=== PATIENT | male | born 1940 | race Caucasian/White ===

== ENCOUNTER 2017-09-09 09:54 | Outpatient (CLI) | payer MEDICARE, OTHER ==
--- NOTE | 2017-09-09 13:12 | CT ---
CT CHEST AND ABDOMEN WITHOUT CONTRAST: INDICATIONS: History of left-sided renal carcinoma. COMPARISON: Prior exam dated 08/06/2016 and 12/28/2016. FINDINGS: The focal area of scarring within the anterior segment of the right upper lobe is stable. This is be st seen on image 24 of series 3. There is a new, small, focal, flat appearing, ground glass, nodular density just adjacent to the right minor fissure, on image 32 of series 3, that is likely related to volume averaging with the superior aspect of a pulmonary vesicle best seen on the coronal images. T here are areas of subsegmental volume loss within the posterior right lower lobe, which is new. No n ew suspicious pulmonary nodule is evident. The lack of IV contrast limits evaluation of the heart an d great vessels. There are calcified lymph nodes within the right hilar region. There is scattered vascular calcification involving the coronary artery and thoracic aorta. There is stable post surgical change of a left nephrectomy. No suspicious soft tissue nodularity is seen within the left renal bed. The adrenal glands are normal appearing. Unopacified right kidney r eveals no hydronephrosis. Lobularity of the right renal cortex is similar appearing to the compariso n. No drainable fluid collection is grossly evident. No pathologically enlarged lymph nodes are evident . The gallbladder is surgically absent. The unopacified liver is unremarkable. There are calcified granuloma within the spleen. The spleen remains mildly enlarged, measuring 14.5 cm. There is diffuse osteopenia. There is scattered degenerative and osteoarthritic change. No definite acute osseous abnormality is evident. IMPRESSION: No CT evidence to suggest metastatic disease. POS: [facility]
== END 2017-09-09 09:55 | disposition home or self-care (01) ==
LOC: CT 09:54
PROVIDERS: ATTEND Internal Medicine Medical Oncology
DX: C64.2 Malignant neoplasm of left kidney, except renal pelvis (principal)
CPT/HCPCS: 71250; 74150

== ENCOUNTER 2017-11-26 04:50 | Emergency (ER) | payer MEDICARE, OTHER ==
[2017-11-26] MEDS ORDERED: Morphine 10 MG/ML VIAL ONE (05:21)
--- NOTE | 2017-11-26 08:44 | CT ---
PRELIMINARY REPORT/[facility]/EMERGENTY AFTER-HOURS PROCEDURE CT Lumbar Spine Without Intravenous Contrast CLINICAL HISTORY: 77 years old, male; Pain; Low back pain; Patient HX: Er 3; , M77 presents to ed for back pain. Pt rep orts he has been working outside on the tractor recently and reports lower back pain with radiation d own his left leg. Pt reports feet swelling. Pt reports HX of renal carcinoma TECHNIQUE: Axial computed tomography images of the lumbar spine without intravenous contrast. Coronal and sagitt al reformatted images were created and reviewed. COMPARISON: No relevant prior studies available. FINDINGS: Vertebrae: Degenerative changes in the spine. No acute fracture. Normal alignment. No suspicious bone lesion. Discs/spinal canal/neural foramina: Vacuum disc phenomenon, disc space narrowing, diffuse disc bulge at L5-S1. There are moderate to severe bilateral L5-S1 neuroforaminal stenoses. Soft tissues: Normal. Vasculature: There is a 1.2 cm diameter outpouching along the left lateral margin of the abdominal ao rta, which appears to represent the stump of resected left renal artery. Kidneys and ureters: Patient appears to be status post post left nephrectomy. IMPRESSION: No acute findings. Multilevel degenerative changes. Moderate to severe bilateral L5-S1 neuroforaminal stenoses, which co uld potentially impinge the bilateral L5 nerve roots. Nonacute/incidental findings above. Thank you for allowing us to participate in the care of your patient. Dictated and Authenticated by: Nestor Canales MD 11/26/2017 6:19 AM Central Time ([place] & [place]) FINAL REPORT LUMBAR SPINE CT: Date: 11/26/17 COMPARISON: None. HISTORY: Low back pain radiating down left leg. FINDINGS: I agree with the preliminary report given by [facility]. The evaluation for central canal and/or neural for aminal stenosis is limited on routine CT. The imaged retroperitoneal structures demonstrate postsurgi yovani changes in the left perirenal region with findings suggesting prior left-sided nephrectomy. No significant anterolisthesis or retrolisthesis is seen. There is no evidence for acute fracture or dislocation. No suspicious lytic or blastic bone lesions a re noted. At L5-S1, there is disc space narrowing and vacuum disc formation. There is also prominent facet hype rtrophy extending into bilateral neural foramina with severe bilateral neural foraminal stenosis at L 5-S1. IMPRESSION: No acute osseous abnormality. Prominent degenerative change at the lumbosacral junction as above. POS: [facility]
== END 2017-11-26 06:45 | disposition home or self-care (01) ==
LOC: ERS 04:50
DX: M54.42 Lumbago with sciatica, left side (principal); I48.91 Unspecified atrial fibrillation; E03.9 Hypothyroidism, unspecified; E11.9 Type 2 diabetes mellitus without complications; I10 Essential (primary) hypertension; Z79.4 Long term (current) use of insulin; Z79.899 Other long term (current) drug therapy
CPT/HCPCS: 72131; 96372; J2270

== ENCOUNTER 2017-12-10 09:53 | Outpatient (CLI) | payer MEDICARE, OTHER ==
--- NOTE | 2017-12-10 14:33 | NM ---
WHOLE BODY BONE SCAN: Date: 12/10/17 HISTORY: Malignant neoplasm of left kidney, except renal pelvis. Low back pain. RADIOPHARMACEUTICAL: 33 mCi technetium-99m MDP injected intravenously. COMPARISON: 01/04/13. FINDINGS: Increased uptake in the feet are consistent with degenerative changes. No other abnormal areas of tra cer localization are seen. Tracer excretion through the kidneys is within normal limits. IMPRESSION: No evidence of osseous metastatic disease. POS: [facility]
== END 2017-12-10 09:54 | disposition home or self-care (01) ==
LOC: NM 09:53
DX: C64.2 Malignant neoplasm of left kidney, except renal pelvis (principal)
CPT/HCPCS: 78306; A9503

== ENCOUNTER 2018-02-10 16:08 | Outpatient (CLI) | payer MEDICARE, OTHER ==
[2018-02-10 17:01] LABS: #Eosinphils 0.1 thou/uL (0.0-0.7); #Lymphocytes 0.8 thou/uL (1.20-3.40); #Monocytes 0.1 thou/uL (0.11-0.59); %Basophils 1.8 % (0.0-1.0); %Eosinophils 4.5 % (0.0-10.0); %Lymphocytes 38.8 % (21.0-51.0); %Monocytes 6.1 % (0.0-10.0); %Neutrophils 48.8 % (42.0-75.0); Hemoglobin 8.4 g/dL (14.0-18.0); Mean Corpuscular HGB CONC 35.4 g/dL (32.0-36.0); Mean Corpuscular Hemoglobin 37.2 pg (27.0-31.0); Mean Platelet Volume 7.9 fL (7.4-10.4); Platelet Count 106 thou/uL (130-400); RBC Distribution Width 15.5 % (11.5-14.5); Red Blood Cell (RBC) Count 2.25 mill/uL (4.70-6.10); White Blood Cell (WBC) Count 2.1 thou/uL (4.8-10.8)
[2018-02-10 17:20] LABS: Anion Gap 12 mmol/L (10-20); BUN (Urea Nitrogen) 42 mg/dL (8.4-25.7); Calc. Creatinine Clearance 0 mL/min (70-130); Calcium 8.7 mg/dL (7.8-10.44); Carbon Dioxide 22 mmol/L (23-31); Chloride 108 mmol/L (98-107); Estimated GFR-MDRD 19; Glucose 125 mg/dL (83-110); Potassium 4.6 mmol/L (3.5-5.1); Sodium 137 mmol/L (136-145)
== END 2018-02-10 16:09 | disposition home or self-care (01) ==
LOC: LABBT 16:08
PROVIDERS: ATTEND Surgery
DX: Z01.818 Encounter for other preprocedural examination (principal); K64.8 Other hemorrhoids
CPT/HCPCS: 80048; 85025; 93005; 93010

== ENCOUNTER 2018-02-24 08:41 | Day surgery (SDC) | payer MEDICARE, OTHER ==
[2018-02-10 16:22] VITALS: BMI 36.4
[2018-02-24] MEDS ORDERED: cefOXitin 2 GM VIAL ONE (09:00)
[2018-02-24] MEDS ORDERED: Sodium Chloride 0.9% 100 ML ONE (09:01)
[2018-02-24] MEDS ORDERED: Famotidine/PF 20 mg/2ml Vial ONE (09:49)
[2018-02-24] MEDS ORDERED: Ondansetron HCl/PF 4 MG/2 ML Vial ONE (09:49)
[2018-02-24] MEDS ORDERED: Bupivacaine/Epinephrine 0.25% 30 ML VIAL ONE (10:39)
[2018-02-24] MEDS ORDERED: Lidocaine 2% Jelly 5 ML TUBE ONE (10:39)
[2018-02-24] MEDS ORDERED: Lidocaine 2% 10 ML INJ ONE (10:40)
[2018-02-24] MEDS ORDERED: Midazolam HCl 2 mg/2 ml Vial ONE (10:42)
[2018-02-24] MEDS ORDERED: Fentanyl 250 MCG/5 ML VIAL ONE (10:42)
[2018-02-24] MEDS ORDERED: Fentanyl 100 MCG/2 ML VIAL ONE (10:42)
[2018-02-24] MEDS ORDERED: Morphine 4 MG/ML VIAL ONE (12:50)
[2018-02-24] MEDS ORDERED: hydrALAZINE 20 MG/ML VIAL ONE (13:04)
[2018-02-24] MEDS ORDERED: HYDROcodone/Acetaminophen 5/325 mg Tablet ONE (14:15)
--- NOTE | 2018-02-25 22:43 | OP ---
DATE OF PROCEDURE: 02/24/2018 PREOPERATIVE DIAGNOSIS: Prolapsing bleeding internal hemorrhoids. POSTOPERATIVE DIAGNOSES: Prolapsing bleeding internal hemorrhoids. PROCEDURE: PPH stapled hemorrhoidectomy. SURGEON: Dr. Damico. ANESTHESIA: General. ESTIMATED BLOOD LOSS: Minimal. COMPLICATIONS: None. SPECIMEN: Hemorrhoids. TECHNIQUE: The patient was taken to the operating room and placed supine on the table. After genera l anesthetic was obtained, he was placed in the prone position. His buttocks are taped open and the perianal perineum is prepped and draped in a sterile fashion. The patient had undergone preoperative mechanical bowel prep. Exam reveals no obvious anal canal mass. The sphincter protecting device wi th the obturator is placed. The sphincter protector was sewn in place using silk sutures is us ed to place a pursestring of Prolene 2 cm above the anal verge. The PPH stapler was opened to its fu llest extent and placed above the pursestring. The pursestring is tied down loosely and its suture e nds were brought through the stapler. The stapler is tightened down into the green zone and fired. There is a good large southern ute of internal hemorrhoids specimen which was sent to path for final diagno sis. The wound was irrigated. A few bleeders on the staple wire oversewn using Vicryl suture. Ther e was no residual external tissue or redundant prolapsing tissue. The patient is en route to recover y in stable condition. All instrument counts, needle counts, lap counts were correct. Gelfoam and l idocaine jelly was left packed in the anal canal.
== END 2018-02-24 15:22 | disposition home or self-care (01) ==
LOC: SDC 08:41
PROVIDERS: ATTEND Surgery
PROC: 06LY0ZC Occlusion of Hemorrhoidal Plexus, Open Approach (ICD-10-PCS; principal; 2018-02-24)
DX: K64.8 Other hemorrhoids (principal); K64.4 Residual hemorrhoidal skin tags; E11.9 Type 2 diabetes mellitus without complications; I10 Essential (primary) hypertension; Z91.041 Radiographic dye allergy status; Z79.899 Other long term (current) drug therapy; Z79.4 Long term (current) use of insulin
CPT/HCPCS: 88304; 96374; J0131; J0360; J0694; J2250; J2270; J2405; J3010; J7050; S0028

== ENCOUNTER 2018-03-16 09:00 | Outpatient (CLI) | payer MEDICARE, OTHER ==
--- NOTE | 2018-03-16 10:46 | CT ---
CT CHEST AND ABDOMEN PERFORMED WITHOUT CONTRAST ENHANCEMENT: HISTORY: Left renal cell carcinoma with lung metastases. COMPARISON: 09/09/2017 FINDINGS: CHEST: The lungs are clear of any infiltrative process. There are calcified right hilar lymph nodes present. There are coronary artery calcifications seen. These findings appear stable. There is a new right lower lobe pulmonary nodule, which is noncalcified. It measures 5 mm. It is cl ose to but not definitely related to the major fissure. It is located in the superior segment of the right lower lobe. The small focus of parenchymal change in the anterior segment of the right upper lobe appears to have resolved. A small density near the minor fissure is felt to be related to a small vessel. A tiny pericardial effusion is seen. This is stable. ABDOMEN: The liver, spleen, and pancreas regions are unremarkable. The pancreas is atrophic. The g allbladder has been removed. The right and left adrenal glands and the right kidney are unremarkable. The right kidney, once agai n, shows a somewhat lobulated contour. There is a punctate lower pole nonobstructing renal calculus seen. This is more difficult to appreciate on the prior examination, but I believe it was present. The perinephric fat stranding on the right is similar to the prior study. The left kidney has been r emoved. No significant periaortic or mesenteric adenopathy. No signs of any recurrent mass in the l eft renal bed. Review of the osseous structures show arthritic changes of the spine. IMPRESSION: 1. Development of a new small, 5 mm, noncalcified pulmonary nodule within the right lower lobe, slig htly oblong in shape. Followup is recommended. 2. Left nephrectomy change. No signs of recurrent tumor in the renal bed. No significant abdominal adenopathy. 3. Minimal sigmoid diverticulosis incidentally noted. 4. Punctate, nonobstructing lower pole right renal calculus. POS: [facility]
== END 2018-03-16 09:01 | disposition home or self-care (01) ==
LOC: CT 09:00
PROVIDERS: ATTEND Internal Medicine Medical Oncology
DX: C64.2 Malignant neoplasm of left kidney, except renal pelvis (principal); C78.00 Secondary malignant neoplasm of unspecified lung; R91.1 Solitary pulmonary nodule; K57.30 Diverticulosis of large intestine without perforation or abscess without bleeding; N20.0 Calculus of kidney; Z90.5 Acquired absence of kidney
CPT/HCPCS: 71250; 74150

== ENCOUNTER 2018-05-11 08:36 | Outpatient (CLI) | payer MEDICARE, OTHER ==
--- NOTE | 2018-05-11 10:58 | CT ---
CT OF THE THORAX WITHOUT IV CONTRAST: Date: 05/11/18 INDICATION: History of renal cancer, status post left nephrectomy, with pulmonary nodules. COMPARISON: Recent CT of the thorax dated 03/16/18 and 04/03/16. FINDINGS: The 5.0 mm superior segment right lower lobe pulmonary nodule has decreased in size and is now sub-4. 0 mm in size, measuring approximately 2-3 mm on today's exam, on image 29 of series 3. There is a tiny new sub-4.0 mm pulmonary nodule within the right upper lobe on image 30 of series 3. There is a stable 2.0 mm pulmonary nodule left upper lobe on image 12 of series 3. There are stable sub-4.0 mm pulmonary nodules within the left lower lobe on image 37 of series 3 and image 38 of series 3. There are areas of subsegmental volume loss in both lower lobes. There is a small pericardial effusio n, which is stable. There are stable calcified lymph nodes within the right hilar region. There are c oronary artery thoracic aortic calcifications. There are calcified granulomas within the spleen. Visualized aspects of the upper abdomen demonstrate postsurgical change of a left nephrectomy. There is also postsurgical change of a prior cholecystect renetta. There is scattered degenerative and osteoarthritic change. No acute osseous abnormality is evident. IMPRESSION: 1. The suspicious pulmonary nodule within the right lower lobe superior segment has decreased in siz e and now measures approximately 2.0 mm and is likely reflective of a small inflammatory nodule and i s benign. There is a new sub-4.0 mm pulmonary nodule within the anterior segment of the right upper l obe, which has developed in the interim. Left lung pulmonary nodules all are sub-4.0 mm in size and a re stable to the prior exam. Only one sub-4.0 mm pulmonary nodule in the left lower lobe is new from 2016 and that is seen on image 37 of series 3. This was seen on a CT of the thorax on 09/09/17. A fol low-up examination in September 2018 is recommended to document stability. 2. Other chronic findings as above. POS: [facility]
== END 2018-05-11 08:37 | disposition home or self-care (01) ==
LOC: CT 08:36
PROVIDERS: ATTEND Internal Medicine Medical Oncology
DX: R91.1 Solitary pulmonary nodule (principal); C64.2 Malignant neoplasm of left kidney, except renal pelvis; R91.8 Other nonspecific abnormal finding of lung field; I31.3 Pericardial effusion (noninflammatory); I25.10 Atherosclerotic heart disease of native coronary artery without angina pectoris; I70.0 Atherosclerosis of aorta; D73.89 Other diseases of spleen; M19.90 Unspecified osteoarthritis, unspecified site; Z90.49 Acquired absence of other specified parts of digestive tract; Z90.5 Acquired absence of kidney
CPT/HCPCS: 71250

== ENCOUNTER 2018-07-25 09:48 | Outpatient (CLI) | payer MEDICARE, OTHER ==
--- NOTE | 2018-07-25 11:46 | CT ---
CT CHEST AND ABDOMEN WITHOUT CONTRAST: Technique: Multiple contiguous axial images were obtained through the chest and abdomen without IV en hancement. Indications: History of renal cancer. Follow up tiny lung nodules. Comparison: CT chest and abdomen 03-16-18. CT chest 05-11-18. FINDINGS: The nodule in the superior segment right lower lobe described on 03-26-18 measuring 5 mm at that time which was shown to have decreased on exam of 10-24-17, is not identified today. A faint ill-defined de nsity at this site is noted. Tiny pleural based nodules anterior right mid lung described on 05-11-18 again seen. There is some sli ght parenchymal stranding associated with this density which appears stable. There is numerous tiny nodules in the left lung which all measure in the 2-3 mm range. The largest is within the fissure on the left measuring approximately 3 mm. These tiny left lung nodules all remain stable. The is no evidence of mediastinal adenopathy. There are calcified right hilar lymph nodes which indic ate a prior granulomatous process. There is evidence of a small pericardial effusion which appears st able. Images of the abdomen show unremarkable liver, spleen, and pancreas. Adrenal glands are unremarkable. Left nephrectomy changes again noted. Right kidney unremarkable. No adenopathy. Visualized bowel loo ps unremarkable and unchanged. Visualized osseous structures are unremarkable. ==== normal caliber. IMPRESSION: 1. The nodule described in the right lower lobe 03-16-18 continues to resolve and is only faintly visib le today. Other tiny nodules seen in both lungs, more numerous on the left all remain stable and prob ably represent tiny granuloma. 2. CT abdomen appears normal in appearance with no acute process. POS: [facility]
== END 2018-07-25 09:49 | disposition home or self-care (01) ==
LOC: BICCT 09:48
PROVIDERS: ATTEND Internal Medicine Medical Oncology
DX: C64.2 Malignant neoplasm of left kidney, except renal pelvis (principal); R91.8 Other nonspecific abnormal finding of lung field
CPT/HCPCS: 71250; 74150

== ENCOUNTER 2018-08-17 13:05 | Outpatient (CLI) | payer MEDICARE, OTHER | END 2018-08-17 13:06 | disposition home or self-care (01) | LOC: DTY/OP 13:05 | PROVIDERS: ATTEND Family Medicine | DX: C64.9 Malignant neoplasm of unspecified kidney, except renal pelvis (principal); N18.5 Chronic kidney disease, stage 5 | CPT/HCPCS: 97802 ==

== ENCOUNTER 2018-10-12 04:07 | Inpatient (IN) | payer MEDICARE, OTHER ==
[2018-10-12 04:41] LABS: PTT 28.5 SEC (22.9-36.1); Prothrombin Time 13.1 SEC (12.0-14.7)
[2018-10-12 04:49] LABS: ALT (SGPT) 35 U/L (8-55); AST (SGOT) 29 U/L (5-34); Albumin 3.1 g/dL (3.4-4.8); Alkaline Phosphatase 92 U/L (40-150); Anion Gap 15 mmol/L (10-20); BUN (Urea Nitrogen) 67 mg/dL (8.4-25.7); Bilirubin, Total 0.6 mg/dL (0.2-1.2); CK (CPK) 139 U/L (30-200); Calc. Creatinine Clearance 0 mL/min (70-130); Calcium 8.8 mg/dL (7.8-10.44); Carbon Dioxide 16 mmol/L (23-31); Chloride 106 mmol/L (98-107); Estimated GFR-MDRD 11; Globulin 2.4 g/dL (2.4-3.5); Glucose 114 mg/dL (83-110); Magnesium 2.1 mg/dL (1.6-2.6); Potassium 4.8 mmol/L (3.5-5.1); Protein, Total 5.5 g/dL (5.8-8.1); Sodium 132 mmol/L (136-145)
[2018-10-12 04:52] LABS: #Eosinphils 0.1 thou/uL (0.0-0.7); #Lymphocytes 0.8 thou/uL (1.20-3.40); #Monocytes 0.1 thou/uL (0.11-0.59); #Neutrophils 1.6 thou/uL (1.40-6.50); %Eosinophils 5.2 % (0.0-10.0); %Lymphocytes 30.7 % (21.0-51.0); %Monocytes 4.1 % (0.0-10.0); %Neutrophils 58.9 % (42.0-75.0); Hemoglobin 12.1 g/dL (14.0-18.0); Mean Corpuscular HGB CONC 33.2 g/dL (32.0-36.0); Mean Corpuscular Hemoglobin 35.2 pg (27.0-31.0); Mean Platelet Volume 10.7 fL (7.4-10.4); Platelet Count 80 thou/uL (130-400); RBC Distribution Width 15.1 % (11.5-14.5); Red Blood Cell (RBC) Count 3.45 mill/uL (4.70-6.10); White Blood Cell (WBC) Count 2.7 thou/uL (4.8-10.8)
[2018-10-12] MEDS ORDERED: Aspirin 325 MG TAB ONE (06:31)
[2018-10-12] MEDS ORDERED: Lorazepam 2 MG/ML VIAL ONE (06:50)
[2018-10-12] MEDS ORDERED: levETIRAcetam 500 MG/100 ML PREMIX BAG ONE (07:02)
--- NOTE | 2018-10-12 07:12 | CT ---
CT BRAIN WITHOUT CONTRAST: INDICATIONS: New onset seizure with a right-sided deficit that is resolving. COMPARISON: None. FINDINGS: No acute infarct, hemorrhage, or hydrocephalus is present. The septum pellucidum and third ventricle are midline. There is mild chronic small vessel white matter ischemic change. There is a 6 mm focu s seen within the subcortical white matter of the right frontal lobe on image 17 of series 4, which m ay reflect a remote subcortical infarct; however, a small intraparenchymal lesion is not entirely exc luded. The septum pellucidum and third ventricle are midline. There is chronic sinusitis involving the right maxillary sinus. Mild mucosal thickening is seen within the ethmoid air cells, as well as the left maxillary sinus. There is partial effusion of the right mastoid air cells. IMPRESSION: 1. Small focus of intraparenchymal hypodensity involving the right frontal lobe may reflect a remote subcortical white matter lacunar infarct, but with the current diagnosis of new onset seizure, a sma ll intraparenchymal lesion cannot be entirely excluded. Metastatic disease cannot be excluded. A fo llow-up MRI of the brain with and without contrast is recommended. 2. Near complete opacification of the right maxillary sinus with chronic sinusitis of the right maxi llary sinus. 3. Moderate mucosal thickening of the ethmoid air cells, left maxillary sinus. 4. Partial effusion of the right mastoid air cells. POS: [facility]
[2018-10-12 07:59] LABS: Troponin I 0.508 ng/mL (< 0.028)
[2018-10-12] MEDS ORDERED: Lorazepam 2 MG/ML VIAL SLOW IVP PRN (09:16)
[2018-10-12] MEDS ORDERED: Ondansetron PF 4 MG/2 ML Vial IVP PRN (09:16)
[2018-10-12] MEDS ORDERED: HumaLOG 300 UNITS/3 ML VIAL SC PRN (09:16)
[2018-10-12] MEDS ORDERED: Dextrose 5% in Water 1,000 ML IV PRN (09:16)
[2018-10-12] MEDS ORDERED: Dextrose 50% Abboject 50 ML SYRINGE SLOW IVP PRN (09:16)
[2018-10-12] MEDS ORDERED: Acetaminophen 650 MG Suppository PR PRN (09:16)
--- NOTE | 2018-10-12 10:09 | HP ---
PRIMARY CARE PHYSICIAN: Dr. Imer English. PRIMARY ONCOLOGIST: Dr. Gonzalez. PRIMARY DRIVER SERVICE TECHNICIAN: Dr. Cohen. REASON FOR ADMISSION: Right frontal lobe mass with seizures x2, acute encephalopathy. HISTORY OF PRESENTING ILLNESS: Please note, majority of this history is obtained by talking to the patient's , Mrs. Husain, who is here at bedside. Around 2: 00 in the morning, the patient was making lot of gurgling noises, which woke her up. He was also very stiff holding his both upper and lower extremities in an extended posture. She immediately called EMS as he was not responding to verbal stimuli. EMS when they were approaching [facility] realized he might have had stroke, then Life flighted him from there to [facility] here. Around 7:00 in the morning, again, the patient had another episode of stiffening up of all 4 extremities and was given Keppra and Ativan in the ER here. He has known history of renal cell carcinoma and has had prior nephrectomy. The also mentions that his creatinine has been going up steadily and he is on a renal diet, which is holding it back. He has also had lower extremity swelling, which is gradually coming down per . He has had close followup with Dr. Gonzalez for his cancer and he is on Sunitib on a 28-day cycle with 2 weeks off in between cycles. The mentions that he ambulates by himself. PAST MEDICAL AND SURGICAL HISTORY: History of renal cell carcinoma with prior nephrectomy, chronic kidney disease stage 4 or 5, diabetes mellitus type 2, prior atrial fibrillation ablation x2 by Dr. Walters, hemorrhoid surgery x2, tonsillectomy, cholecystectomy, hypertension, hypothyroidism, chronic anemia and receives Procrit shots weekly. Stress test done in 2005 was negative per . CURRENT MEDICATIONS: The patient is on, 1. Victoza. 2. Lantus 12 to 18 units at bedtime. 3. Clonidine 0.2 mg twice daily. 4. Coreg 25 mg twice daily. 5. Procrit weekly shots. 6. Levothyroxine 75 mcg p.o. daily. 7. Sunitib chemotherapy ALLERGIES: ALLERGIC TO IODINE. PERSONAL HISTORY: Quit smoking in the year 1999. Does not abuse alcohol or drugs. He ambulates by himself. Lives with his . FAMILY HISTORY: Mother at the age of 95 years. She has had history of mild Parkinson's prior to . Father at the age of 82 years. He has had history of diabetes. CODE STATUS: Full. POWER OF CARDIAC CATH LAB RADIOLOGY TECHNOLOGIST: , number to reach her is [phone]. REVIEW OF SYSTEMS: Cannot be obtained as the patient is obtunded at present. PHYSICAL EXAMINATION: GENERAL: The patient is a 78-year-old male, who is currently very lethargic, likely due to Ativan that he got for seizure. VITAL SIGNS: Blood pressure 190/90, pulse 62 per minute, respiratory rate 18 per minute, temperature 98.2 degrees Fahrenheit, saturating 99% on 2 L nasal cannula. NECK: Supple. No elevated JVD. HEENT: Eyes; extraocular muscles are grossly intact. It is unclear if he has right lateral gaze restriction. Pupils reacting to light. CARDIOVASCULAR SYSTEM: S1 and S2 heard. Regular rhythm. RESPIRATORY SYSTEM: Air entry 1+ bilateral. Scattered rhonchi plus bilateral. The patient is currently having some difficulty clearing his throat secretions. ABDOMEN: Soft. Bowel sounds heard. No tenderness, rigidity, or guarding. EXTREMITIES: There is peripheral edema +. No calf tenderness. VASCULAR SYSTEM: Peripheral pulses 1+ bilateral. No ischemic ulcerations or gangrene. CENTRAL NERVOUS SYSTEM: The patient is very lethargic at present. He is moving all 4 extremities freely. NEUROLOGIC: Accurate neurologic exam is difficult due to the patient's decreased level of consciousness at present. No gross localizing sign seen at present. PSYCHIATRIC: Cannot be assessed as the patient is cognitively not intact at present. LABORATORY DATA: CT brain without contrast done showed mild focus of intraparenchymal hypodensity involving right frontal lobe, right maxillary sinus opacification. White count of 2.7, H and H 12 and 36, platelet count 80, MCV is 106 with 58% neutrophils. PT/INR within normal limits. PTT 28; serum bicarb 16, BUN 67, creatinine 5.3, glucose 114. Liver enzymes within normal limits. CK-MB 6.0 , troponin I 0.49, second set 0.50. Albumin is 3.1. TSH 1.42. EKG done shows sinus bradycardia at 59 beats per minute. CLINICAL IMPRESSION AND PLAN: The patient will be admitted to [facility] for seizures x2 with likely right frontal lobe mass to rule out mets in view of his history of renal cell carcinoma. He also has chronic kidney disease with metabolic acidosis. He was given Keppra and Ativan in the ER and will continue him on Keppra 500 mg IV q.12 hourly and reduce it to 250 q12h in am. MRI without contrast will be obtained in view of his elevated creatinine. We will keep him n.p.o. until the right frontal lobe area is better delineated. I have spoken to Dr. Vasquez, Neurosurgery, Dr. Landaverde for Pulmonology and Critical Care, Dr. Cohen for Nephrology consultations. He will be on normal saline at 70 mL per hour. Neuro checks and seizure precautions will be obtained as well. He will be on Accu-Chek Humalog coverage q.6 hourly. Job ID: [id number] [facility]
--- NOTE | 2018-10-12 10:54 | CON ---
DATE OF CONSULTATION: CONSULTING PHYSICIAN: Dr. Alvarez. TIME SPENT: Following encompassed 70 minutes time, of that time, greater than 50% was spent with the patient and/or the patient's unit in the hospital. REASON FOR CONSULTATION: Intermediate care unit consultation. HISTORY OF PRESENT ILLNESS: The patient is a 78-year-old male, who lives near [place]. Last night, he began having left-sided seizure-type activity, which was new onset. He was subsequently brought to the hospital here. He initially was not given anticonvulsants, but then had another seizure about 7:00 a.m. this morning. At that time, he received Ativan and Keppra, and is now somnolent. He will wake up when stimuli indicates that he is fine and currently has a nonfocal neurologic exam. 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 She says he has never had any seizure type episodes in the past. He was diagnosed with renal cell carcinoma many years ago. He had a left nephrectomy. He has been managed with some type of oral chemotherapy medications since that time. PAST MEDICAL HISTORY: 1. Renal cell carcinoma. 2. Diabetes mellitus. 3. Hyperlipidemia. 4. Hypertension. 5. Paroxysmal atrial fibrillation. 6. Hypothyroidism. PAST SURGICAL HISTORY: 1. Left nephrectomy. 2. Cholecystectomy. 3. Tonsillectomy. 4. Cardiac ablation. PSYCHIATRIC HISTORY: Negative. SOCIAL HISTORY: Does not drink alcohol. Does not smoke. Does not use illicit drugs. MEDICATIONS: Prior to admission; 1. Levothyroxine 75 mcg daily. 2. Lantus insulin, unknown dose daily. 3. Lisinopril 10 mg daily. 4. He is also on clonidine, unknown dose daily. FAMILY MEDICAL HISTORY: Unremarkable for seizure disorder. REVIEW OF SYSTEMS: He has had no shortness of breath. No chest pain. No fever, chills, nausea, vomiting, hematemesis, melena, hematochezia, hematuria, or dysuria. He has had some problem with renal insufficiency. PHYSICAL EXAMINATION: VITAL SIGNS: Temperature 98.2, pulse 80, blood pressure 179/82, O2 saturation 100%. GENERAL: He will wake up, no distress. HEENT: Both pupils equally reactive. Sclerae anicteric. Oropharynx, he has some tongue swelling from where he bit his tongue earlier. CARDIOVASCULAR: S1 and S2 regular without audible murmur, rub, or gallop. LUNGS: Clear to auscultation without wheezing or rhonchi. ABDOMEN: Soft, obese, nontender, and nondistended. EXTREMITIES: No clubbing, cyanosis, or edema. NEUROLOGIC: He moves all 4 extremities without difficulty. He has no sensory deficits. LABORATORY DATA: White blood cell count 2.7, hemoglobin 12, hematocrit 36.6, and platelet count 80. INR 1.0. PTT 28.5. Sodium 132, potassium 4.8, chloride 106, CO2 of 16, BUN 67, creatinine 5.3, and glucose 114. Troponin 0.5. TSH 1.4. DIAGNOSTIC DATA: Brain CT demonstrated a small focus of hypodensity in the right frontal lobe looks about 5 mm. Followup MRI is pending. ASSESSMENT: 1. 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 2. Renal cell carcinoma. 3. Chronic kidney disease. 4. Diabetes mellitus. PLAN: 1. An MRI of the brain is pending. He will be placed in IMCU for further observation. He needs an EEG if that has not been ordered. 2. He needs Neurology consultation. Job ID: [id number]
[2018-10-12] MEDS ORDERED: hydrALAZINE 20 MG/ML VIAL SLOW IVP PRN (14:44)
[2018-10-12] MEDS ORDERED: Labetalol HCl 100 MG/20 ML VIAL SLOW IVP PRN (14:44)
[2018-10-12] MEDS ORDERED: cloNIDine 0.2mg/24 Hour PATCH TD SCH (15:00)
--- NOTE | 2018-10-12 15:33 | MRI ---
MRI BRAIN WITHOUT CONTRAST: Date: 10/12/18 HISTORY: Right frontal mass with seizures. History of renal cancer. FINDINGS: Exam is of limited diagnostic value due to extensive motion artifact and absence of IV contrast. No restricted diffusion is seen. The ventricular size is appropriate. There is mucosal disease in the paranasal sinuses and fluid in the right mastoid air cells. IMPRESSION: Limited exam. No evidence of acute infarction. POS: [facility]
--- NOTE | 2018-10-12 16:11 | PDOC.EVN ---
Event Note - Event Note Event Note: d/w Dr.Jerri Carvajal radiologist reg MRI and CT findings, has lacunar stroke, no obvious mass/suspicion of mets. Stoke protocol to be initiated Oral diet, asp, may tx to stroke unit if he gets to wake up fully and maintain airway. d/w , will cancel NSX consult. Seizures likely sec to cva/metabolic causes (?uremia). No narcotics to be given. Have given updates to over phone.
[2018-10-12] MEDS: Acetaminophen 325 MG TAB PO PRN (17:35)
--- NOTE | 2018-10-12 17:56 | CON ---
DATE OF CONSULTATION: 10/12/2018 HISTORY OF PRESENT ILLNESS: Mr. Dubois is a 78-year-old white male, who was admitted for new onset seizure. Initial imaging suggested the possibility of right frontal lobe mass. Further imaging and reading of the MRI and CAT scan suggest he may have a lacunar infarct. We are now being consulted for his chronic renal failure. Of interest, this patient was seen at the renal clinic one day prior to admission. His GFR was less than 10 mL/minute. At that time, I recommended dialysis, but the patient was hesitant. My initial impression at that time was the patient was not clinically uremic at the office. My concern is that the new onset seizure might be a reflection of his uremia. We will further discuss the issue about initiating dialysis with the . REVIEW OF SYSTEMS: Not obtainable since the patient is sedated. He was given benzodiazepine and antiseizure medication earlier today. MEDICATIONS: 1. Tylenol 650 mg q.4 p.r.n. 2. Aspirin 81 mg tablet once daily. 3. Lipitor 10 mg at bedtime. 4. Coreg 25 mg p.o. b.i.d. 5. Clonidine patch TTS-2 q.week. 6. Lovenox 30 mg subcu daily. 7. Pepcid 20 mg IV daily. 8. Humalog sliding scale. 9. Levetiracetam 250 mg IV b.i.d. 10. Synthroid 75 mcg daily. 11. Normal saline 70 mL per hour. Home medications: 1. He is on Lantus 12 to 18 units subcu at bedtime. 2. Victoza daily. 3. Clonidine 0.2 mg b.i.d. 4. Coreg 25 mg twice a day. 5. Procrit weekly shots. 6. Levothyroxine 75 mcg daily. 7. Sutent chemotherapy as directed. 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 PAST SURGICAL HISTORY: 1. The patient is status post left nephrectomy. 2. Status post hemorrhoidectomy. SOCIAL HISTORY: The patient is , lives in [place]. 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 Education, some college courses. No IV drug abuse. Currently not smoking. No alcohol intake. Sedentary lifestyle. ALLERGIES: TO IODINE. TRAUMA: None. IMMUNIZATION: Up-to-date. HOSPITALIZATIONS: Please see past medical history. FAMILY HISTORY: No family history of ESRD. PHYSICAL EXAMINATION: VITAL SIGNS: Blood pressure is noted at 188/80, heart rate 70. GENERAL: The patient is sedated, comfortable, not in distress. SKIN: Adequate turgor. HEENT: Slightly pale conjunctivae. Anicteric sclerae. No neck mass. No carotid bruits. No JVD. CHEST: No deformities. LUNGS: Clear breath sounds. No wheezing. No crackles. HEART: Normal sinus rhythm. No murmurs, gallops, or rubs. ABDOMEN: Globular, soft, nontender. No masses. EXTREMITIES: No edema. No deformities. LABORATORY DATA: Laboratories white count 2.7, hemoglobin 12.1. Sodium 132, potassium 4.8, chloride 106, carbon dioxide 16, BUN 67, creatinine 5.32, GFR 11 mL/minute. AST 29, ALT 35. On October 12, 2018, brain MRI shows no evidence of acute infarction. No evidence of brain mass. CT scan of the brain on October 12, 2018, hypodensity involving the right frontal lobe. ASSESSMENT AND PLAN: 1. New onset seizure - after review by the neurologist and radiologist, the feeling is that there is no acute cerebrovascular accident or any acute intracranial mass. The seizure may be related to his underlying chronic renal failure. My plan is to consider initiating dialysis if the will agree with this procedure. However, we will wait the next 24 hours to see how the clinical course will follow with this patient. 2. Renal cancer - currently in remission, currently on chemotherapy - Sutent. The patient is followed by Dr. Gonzalez. 3. Hypertension. Continue current blood pressure medications. Overall, prognosis remains guarded with this patient. Thank you for the consult. We will continue to follow. Job ID: [id number]
[2018-10-12] MEDS: Sodium Chloride 0.9% 1,000 ML IV SCH ×2 (19:12→23:03)
[2018-10-12 19:26] LABS: Medtox Reader # READER 1
[2018-10-12 19:27] LABS: Amphetamine Not Detected (NotDetected); Barbiturates Screen Not Detected (NotDetected); Benzodiazepine Screen Not Detected (NotDetected); Cocaine Metabolite Screen Not Detected (NotDetected); Medtox Control Line Valid? VALID (VALID); Methadone Not Detected (NotDetected); Methamphetamine Not Detected (NotDetected); Opiate Screen Detected (NotDetected); Oxycodone Screen Not Detected (NotDetected); Phencyclidine (PCP) Not Detected (NotDetected); THC/Cannabinoid Screen Not Detected (NotDetected); Tricyclic Screen Not Detected (NotDetected)
[2018-10-12] MEDS ORDERED: levETIRAcetam In NaCl (Iso-Os) 250 MG in Premix Bag 1 BAG IVPB SCH (21:00)
[2018-10-12] MEDS: Atorvastatin Calcium 10 MG TAB PO SCH (21:07)
[2018-10-12] MEDS: Nitroglycerin 2% Ointment 1 INCH/1 GM Packet TOP SCH (21:07)
[2018-10-12] MEDS: Carvedilol 25 MG TAB PO SCH (21:07)
[2018-10-12] MEDS: Polyethylene Glycol 3350 17 GM Packet PO SCH (21:07)
[2018-10-12] MEDS: Famotidine/PF 20 mg/2ml Vial SLOW IVP SCH (22:19)
[2018-10-13] MEDS: Levothyroxine Sodium 75 MCG TAB PO SCH (05:57)
[2018-10-13] MEDS: Nitroglycerin 2% Ointment 1 INCH/1 GM Packet TOP SCH (05:57)
[2018-10-13 08:03] LABS: Anion Gap 14 mmol/L (10-20); BUN (Urea Nitrogen) 65 mg/dL (8.4-25.7); Calc. Creatinine Clearance 18 mL/min (70-130); Calcium 8.9 mg/dL (7.8-10.44); Carbon Dioxide 19 mmol/L (23-31); Chloride 109 mmol/L (98-107); Cholesterol 134 mg/dl (< 200 Desired); Estimated GFR-MDRD 10; Glucose 76 mg/dL (83-110); HDL Cholesterol 45 mg/dL (>60 Neg Risk); LDL Cholesterol, Calculated 69 mg/dL; Potassium 4.2 mmol/L (3.5-5.1); Sodium 138 mmol/L (136-145); Triglycerides 100 mg/dL (Less than 150)
[2018-10-13] MEDS: Aspirin Chewable 81 MG TAB PO SCH (09:07)
[2018-10-13] MEDS: Carvedilol 25 MG TAB PO SCH ×2 (09:07→21:34)
[2018-10-13] MEDS: Enoxaparin Sodium 30 MG/0.3 ML SYRINGE SC SCH (09:08)
[2018-10-13] MEDS: Acetaminophen 325 MG TAB PO PRN (09:08)
[2018-10-13] MEDS: Cyanocobalamin (Vitamin B-12) 1,000 MCG TAB PO SCH (09:08)
[2018-10-13 09:13] LABS: #Eosinphils 0.1 thou/uL (0.0-0.7); #Lymphocytes 1.1 thou/uL (1.20-3.40); #Monocytes 0.2 thou/uL (0.11-0.59); #Neutrophils 1.6 thou/uL (1.40-6.50); %Basophils 0.3 % (0.0-1.0); %Lymphocytes 36.1 % (21.0-51.0); %Neutrophils 53.5 % (42.0-75.0); Hemoglobin 11.9 g/dL (14.0-18.0); Mean Corpuscular HGB CONC 32.4 g/dL (32.0-36.0); Mean Corpuscular Hemoglobin 34.8 pg (27.0-31.0); Mean Platelet Volume 10.7 fL (7.4-10.4); Platelet Count 86 thou/uL (130-400); Red Blood Cell (RBC) Count 3.41 mill/uL (4.70-6.10)
--- NOTE | 2018-10-13 09:38 | PRG ---
DATE OF SERVICE: 10/13/2018 SUBJECTIVE: The patient is doing well, has not had any seizure activity since 7 a.m. yesterday. He was moved out to the stroke floor last night. OBJECTIVE: VITAL SIGNS: Temperature 98.3, pulse 61, respirations 18, O2 saturation 94%, blood pressure 189/85. HEENT: Unremarkable. NECK: No JVD. LUNGS: Clear. CARDIAC: S1 and S2, regular. ABDOMEN: Obese. EXTREMITIES: No edema. DIAGNOSTIC DATA: His MRI showed an old lacunar infarct, but no evidence of metastatic disease. LABORATORY DATA: Sodium 138, potassium 4.2, chloride 109, CO2 of 19, BUN 65, creatinine 5.6, glucose 76. ASSESSMENT: 1. Seizure episode, which is felt to be likely due to his progressive renal failure and not due to metastatic renal cell carcinoma. 2. History of renal cell carcinoma. 3. History of nephrectomy. 4. Chronic kidney disease. 5. Diabetes mellitus. PLAN: He has been moved out of the [facility] and seems stable from a critical care standpoint. Inevitably, decision will have to be made about dialysis whether it be hemodialysis or peritoneal dialysis. He is currently being managed by the [facility] and by Dr. Cohen. I have nothing to add. I am available if further assistance is needed. Job ID: [id number]
--- NOTE | 2018-10-13 09:47 | PRG ---
DATE OF SERVICE: 10/13/2018 SERVICE: Renal Medicine. SUBJECTIVE: Mr. Dubois is a 78-year-old white male who was admitted for new onset seizure. Initial imaging was read and consideration for possible metastatic tumor was made. However, after further review, there was no tumor or bleed. There was an old lacunar infarct noted. The feeling is that the seizure may be related to his chronic renal failure. I had a long discussion with the patient and his family regarding initiating dialysis. They are considering peritoneal dialysis. I will have a nurse - to do an option visit with him, then he will decide. My bias is to start him at the same time on hemo if needed. OBJECTIVE: VITAL SIGNS: Blood pressure is 189/85, heart rate 61, respiratory rate 18, temperature 98.3, and pulse ox 94%. GENERAL: Awake, alert, comfortable, not in distress. SKIN: Adequate turgor. HEENT: He has a pinkish conjunctivae. Anicteric sclerae. NECK: No neck mass. No carotid bruits. No JVD. CHEST: No deformities. LUNGS: Clear breath sounds. No wheezing. No crackles. HEART: Normal sinus rhythm. No murmur. No gallops. No rubs. ABDOMEN: Globular, soft, nontender. No masses. EXTREMITIES: No edema. No deformities. MEDICATIONS: Medications of October 13, 2018, was reviewed. LABORATORY DATA: Laboratories of October 12, 2018; white count 2.7, hemoglobin 12.1. On October 13, 2018; potassium 4.2, BUN 65, creatinine 5.57. GFR is 10 mL/minute. Cholesterol 134. ASSESSMENT AND PLAN: 1. New onset seizure - currently on Keppra. Doing well. No recurrence of seizures. 2. Chronic renal failure - GFR is 10 mL/minute. My bias is towards starting dialytic intervention. The patient would like to decide today whether they wants to go to peritoneal or hemodialysis. He will have an option for visit and will be make a final decision by tomorrow. 3. Hypertension. Continue current BP medications. 4. New onset seizure - Neurology has been consulted. 5. Renal cancer - in remission - Oncology has been reconsulted. Job ID: [id number]
[2018-10-13] MEDS: Tuberculin PPD 0.1 ML VIAL I-DERMAL SCH (09:54)
--- NOTE | 2018-10-13 09:57 | PDOC.PN ---
- Subjective Encounter Start Date: 10/13/18 Encounter Start Time: 09:00 Subjective: is awake, follows verbal stimuli -: is moving all extremities, no trouble swallowing -: no chest pain or sob. at bedside - Objective Resuscitation Status - Order Detail: 10/12/18 09:04 Resuscitation Status Routine Resuscitation Status: FULL: Full Resuscitation Discussed with: poa: LUIS ENRIQUE Reviewed: Yes Vital Signs & Weight: Vital Signs (12 hours) Temp Pulse Resp BP Pulse Ox 10/13/18 07:33 98.3 F 61 18 189/85 H 94 L 10/13/18 07:10 99 10/13/18 04:00 99 F 74 16 166/68 H 93 L 10/13/18 00:39 140/72 10/13/18 00:00 99.1 F 66 12 95 Weight Weight 246 lb 13.44 oz Most Recent Monitor Data Heart Rate from ECG 64 NIBP 175/81 NIBP BP-Mean 112 Respiration from ECG 11 SpO2 98 I&O: 10/12/18 10/13/18 10/14/18 06:59 06:59 06:59 Intake Total 300 Balance 300 Result Diagrams: 10/13/18 07:16 10/13/18 07:16 Additional Labs: Accuchecks 10/13/18 10/13/18 10/13/18 08:24 05:53 00:04 POC Glucose 81 82 81 Phys Exam - Physical Examination HEENT: PERRLA, moist MMs Neck: no JVD, supple no meningeal signs Respiratory: no wheezing, no rales Cardiovascular: RRR, no significant murmur Gastrointestinal: soft, non-tender, positive bowel sounds Musculoskeletal: no edema, pulses present Neurological: non-focal, moves all 4 limbs Psychiatric: normal affect, A&O x 3 lethargic but oriented Dx/Plan (1) Seizure Code(s): R56.9 - UNSPECIFIED CONVULSIONS Status: Acute Comment: no further seizures after the 2 he had yesterday (2) CVA (cerebral vascular accident) Code(s): I63.9 - CEREBRAL INFARCTION, UNSPECIFIED Status: Acute Qualifiers: CVA mechanism: unspecified Qualified Code(s): I63.9 - Cerebral infarction, unspecified Comment: has chronic afib (3) CHIRAG (acute kidney injury) Code(s): N17.9 - ACUTE KIDNEY FAILURE, UNSPECIFIED Status: Acute (4) CKD (chronic kidney disease) stage 5, GFR less than 15 ml/min Code(s): N18.5 - CHRONIC KIDNEY DISEASE, STAGE 5 Status: Chronic Comment: prior h/o nephrectomy on one side (5) HTN (hypertension) Code(s): I10 - ESSENTIAL (PRIMARY) HYPERTENSION Status: Chronic Qualifiers: Hypertension type: essential hypertension Qualified Code(s): I10 - Essential (primary) hypertension (6) H/O renal cell carcinoma Code(s): Z85.528 - PERSONAL HISTORY OF OTHER MALIGNANT NEOPLASM OF KIDNEY Status: Chronic Comment: on sunitinib (7) Acute encephalopathy Code(s): G93.40 - ENCEPHALOPATHY, UNSPECIFIED Status: Acute Comment: likely due to seizure - Plan is on keppra 250mg bid, neuro consult -: seizure likely due to metabolic ?chirag/ckd/uremia or due to lac infarct -: is moving all extremities, strength is good, await PT eval -: echo, anticoagulation for afib? -: d/w , will likely start HD then PD * . No signs of meningeal irritation to suspect menigitis given immunosuppresion for now. No focal signs clinically. Review of Systems - Medications/Allergies Allergies/Adverse Reactions: Allergies Allergy/AdvReac Type Severity Reaction Status Date / Time iodine Allergy Verified 10/12/18 14:40 Medications: Current Medications Acetaminophen (Tylenol) 650 mg DC Q4H PRN PRN Reason: Headache/Fever/Mild Pain (1-3) Acetaminophen (Tylenol) 650 mg PO Q4H PRN PRN Reason: Headache/Fever/Mild Pain (1-3) Last Admin: 10/13/18 09:08 Dose: 650 mg Aspirin (Aspirin Chewable) 81 mg PO DAILY [facility] Last Admin: 10/13/18 09:07 Dose: 81 mg Atorvastatin Calcium (Lipitor) 10 mg PO HS [facility] Last Admin: 10/12/18 21:07 Dose: 10 mg Carvedilol (Coreg) 25 mg PO BID [facility] Last Admin: 10/13/18 09:07 Dose: 25 mg Clonidine (Fasovpju-Hnn-9) 0.2 mg TD Q7D [facility] Last Admin: 10/12/18 15:32 Dose: 0.2 mg Cyanocobalamin (Vitamin B-12) 1,000 mcg PO DAILY [facility] Last Admin: 10/13/18 09:08 Dose: 1,000 mcg Dextrose/Water (Dextrose 50%) 25 gm SLOW IVP PRN PRN PRN Reason: Hypoglycemia Enoxaparin Sodium (Lovenox) 30 mg SC 0900 [facility] Last Admin: 10/13/18 09:08 Dose: 30 mg Famotidine (Pepcid) 20 mg SLOW IVP 2100 [facility] Last Admin: 10/12/18 22:19 Dose: 20 mg Glucagon (Glucagon) 1 mg IM PRN PRN PRN Reason: Hypoglycemia Hydralazine HCl (Apresoline) 10 mg SLOW IVP Q4H PRN PRN Reason: BP > 220/110 Dextrose/Water (D5w) 1,000 mls @ 0 mls/hr IV .Q0M PRN PRN Reason: Hypoglycemia Sodium Chloride (Normal Saline 0.9%) 1,000 mls @ 70 mls/hr IV .[id number] [facility] Last Admin: 10/12/18 23:03 Dose: 1,000 mls Levetiracetam 250 mg/ Sodium (Chloride) 102.5 mls @ 205 mls/hr IVPB BID [facility] Last Admin: 10/12/18 22:19 Dose: 102.5 mls Insulin Human Lispro (Humalog) 0 units SC .MODERATE SLIDING SC PRN PRN Reason: Moderate Correctional Scale Insulin Human Lispro (Humalog) 0 units SC .BEDTIME SLIDING SC PRN PRN Reason: Bedtime Correctional Scale Labetalol HCl (Normodyne) 20 mg SLOW IVP Q1H PRN PRN Reason: BP > 220/110 Last Admin: 10/12/18 17:36 Dose: 20 mg Levothyroxine Sodium (Synthroid) 75 mcg PO 0600 [facility] Last Admin: 10/13/18 05:57 Dose: 75 mcg Lorazepam (Ativan) 2 mg SLOW IVP Q15MIN PRN PRN Reason: Seizures Ondansetron HCl (Zofran) 4 mg IVP Q6H PRN PRN Reason: Nausea/Vomiting Polyethylene Glycol (Miralax) 17 gm PO HS [facility] Last Admin: 10/12/18 21:07 Dose: Not Given Sodium Chloride (Flush - Normal Saline) 10 ml IVF PRN PRN PRN Reason: Saline Flush Last Admin: 03/06/19 21:10 Dose: 10 ml Tuberculin PPD (Aplisol) 0.1 ml I-DERMAL ONE [facility] Stop: 10/16/18 09:01
--- NOTE | 2018-10-13 10:42 | EEG ---
Referring Physician: Andrew JAIN EEG # [id number] TEST TYPE: ROUTINE PORTABLE INPATIENT REPORT: AN EEG USING THE INTERNATIONAL TEN-TWENTY SYSTEM OF ELECTRODE PLACEMENT WAS PERFORMED. The best waking background is a low amplitude 8 hertz alpha frequency. Some intermixed theta frequencies were seen over both hemispheres. Minimal EMG artifact was present. Photic stimulation was unremarkable. No epileptiform features were present. IMPRESSION: THIS IS A NORMAL AWAKE AND DROWSY EEG. Pediatrics Teacher: jeremias Marine Equipment Sales Engineer: [email or web address]
[2018-10-13 11:26] LABS: HBSAB Concentration 1.01 mIU/mL; HBSAg Index 0.22 S/CO (0-0.99); Hep B Core Total Ab Non-Reactive (NonReactive); Hep B Core Total Index 0.03 S/CO (0-0.79); Hep B Surf AB Non-Reactive (NonReactive); Hep B Surf Ag Non-Reactive S/CO (NonReactive); Hep C IgG Ab Non-Reactive (NonReactive)
--- NOTE | 2018-10-13 13:01 | EKG ---
Test Reason : Blood Pressure : / mmHG Vent. Rate : 066 BPM Atrial Rate : 066 BPM P-R Int : 216 ms QRS Dur : 076 ms QT Int : 388 ms P-R-T Axes : 164 -33 245 degrees QTc Int : 406 ms Unusual P axis, possible ectopic atrial rhythm Left axis deviation Nonspecific ST and T wave abnormality Abnormal ECG Confirmed by JAMESON JACK ([id number]) on 10/13/2018 1:01:19 PM Referred By: Confirmed By:JAMESON JACK
[2018-10-13] MEDS: traMADol HCl 50 MG TAB PO PRN (15:05)
--- NOTE | 2018-10-13 15:48 | CON ---
DATE OF CONSULTATION: REASON FOR CONSULTATION: Renal cell carcinoma. HISTORY OF PRESENT ILLNESS: Mr. Dubois is a pleasant 78-year-old gentleman, who is treated by Dr. Gonzalez for left renal cell carcinoma. He has been on Sutent since 2012 and has done well. He has acute kidney disease and receives Procrit in our office for hemoglobin of less than 11. His creatinine in August was 5.58. He presents to this facility with new onset of seizures. He has been seen by Neurology and had a brain MRI. I thought his seizures were likely due to progressive renal disease. There was no clear evidence of metastatic lesions in the brain. The patient is followed by Dr. Cohen for his kidney disease, and they are considering dialysis. The patient is at the end of his Sutent cycle, in this Wednesday. His last dose was on Wednesday. He denies any chest pain or shortness of breath. No abdominal complaints. PAST MEDICAL HISTORY: 1. Metastatic left renal cell carcinoma. 2. Diabetes mellitus, 2. 3. High cholesterol. 4. Chronic kidney disease. 5. History of atrial fibrillation. 6. Hypertension. 7. Chronic anemia. PAST SURGICAL HISTORY: 1. Right nephrectomy. 2. Cardiac ablation. 3. Hemorrhoid surgery. 4. Tonsillectomy. 5. Cholecystectomy. CURRENT MEDICATIONS: 1. Coreg 25 mg b.i.d. 2. Vitamin D daily. 3. Clonidine 0.2 mg b.i.d. 4. B12 daily. 5. Insulin 20 units b.i.d. 6. Synthroid 75 mcg daily. 7. Victoza daily. 8. MiraLAX daily. 9. Zocor 20 mg daily. 10. Sutent 25 mg daily. FAMILY HISTORY: Mother had cervical cancer. SOCIAL HISTORY: , has 6 children. Lives with his spouse. No alcohol, tobacco, or illicit drug use. REVIEW OF SYSTEMS: A 10-point review of systems is negative except for noted in HPI. PHYSICAL EXAMINATION: VITAL SIGNS: Temperature is 98.4, pulse is 59, respiratory rate 18, BP is 191/90, and he is 98% on room air. GENERAL: This is a chronically ill-appearing male, in no acute distress. HEENT: Normocephalic and atraumatic. Pupils equal and reactive to light. NECK: Supple. CV: Irregular rate and rhythm. LUNGS: Clear anterior. ABDOMEN: Obese and nontender. Bowel sounds are positive. EXTREMITIES: No clubbing, cyanosis, or edema. SKIN: No rash. HEMATOLOGIC: He has scattered bruising on his upper extremities. NEUROLOGIC: Nonfocal. PSYCHIATRIC: The patient is alert, oriented and appropriate. PERTINENT LABORATORY DATA AND X-RAYS: Current WBCs 3.0, hemoglobin 11.9, hematocrit 36.7, platelet count is 86,000, 53% neutrophils, and 36% lymphocytes. PT is 13.1, INR is 1.0, and PTT is 28.5. Sodium 138, potassium 4.2, chloride 109, CO2 is 19, BUN is 65, creatinine 5.57, glucose 76, and calcium 8.9. Magnesium 2.1. Bilirubin 0.6, AST is 29, ALT is 35, and alkaline phosphatase is 92. Creatine kinase 139, CK-MB is 6, and troponin is 0.508. Serum total protein is 5.5, albumin 3.1, and globulin 2.4. ASSESSMENT: 1. Renal cell carcinoma, on Sutent. 2. New onset seizures. 3. Acute on chronic renal failure. DISCUSSION: The patient is at the end of his Sutent cycle. We will hold for the next 2 weeks. He is due for restaging, that will be done in the outpatient setting. Dr. Cohen is managing his kidney disease. We will provide supportive care. He has a CT scan scheduled on 10/31 and a followup appointment with Dr. Gonzalez on 11/03. Thank you for the consult. We will follow along. Job ID: [id number]
[2018-10-13] MEDS: Sodium Chloride 0.9% 1,000 ML IV SCH (19:02)
[2018-10-13] MEDS: Atorvastatin Calcium 10 MG TAB PO SCH (21:34)
[2018-10-13] MEDS: NIFEdipine XL 30 MG TAB PO SCH (21:35)
[2018-10-13] MEDS: Famotidine/PF 20 mg/2ml Vial SLOW IVP SCH (21:35)
[2018-10-13] MEDS: Polyethylene Glycol 3350 17 GM Packet PO SCH (21:36)
--- NOTE | 2018-10-13 23:16 | CON ---
DATE OF CONSULTATION: 10/13/2018 CONSULTING PHYSICIAN: Hospitalist Service. IMPRESSION: Uremic-induced seizure. PLAN: Continue Keppra until his dialysis is started and then the medication can be discontinued and he can be monitored without it. HISTORY OF PRESENT ILLNESS: Mr. Dubois is a 78-year-old man who presents with a history of diabetes, hypertension, hyperlipidemia, and chronic renal insufficiency. He has a history of renal cancer in the past. He had a generalized tonic-clonic seizure. He had no aura prior to the onset. He came in for evaluation initially in the ICU. He had a CT scan of the brain, which showed some questionable findings of ischemia. His MRI of the brain was a bit suboptimal, but failed to demonstrate any evidence of focal damage or ischemic changes. He has not had any further seizures since admission. He has been started on low-dose Keppra. PAST MEDICAL HISTORY: As listed above. ALLERGIES: IODINE. SOCIAL HISTORY: No tobacco or drug use. FAMILY HISTORY: Noncontributory. MEDICATIONS: Medication list was reviewed. REVIEW OF SYSTEMS: A 10-system review of system is otherwise negative. PHYSICAL EXAMINATION: GENERAL: He is a well-nourished, elderly man, sitting at the bedside, in no distress. VITAL SIGNS: Blood pressure 190/83, pulse 75, respirations 18, temperature 99.3. HEENT: Pupils are equal and reactive. Conjunctivae clear. Oropharynx clear. NECK: Supple, no lymphadenopathy. EXTREMITIES: No cyanosis, clubbing, or edema. NEUROLOGIC: He is alert and appropriate. His speech is fluent and clear. Cranial nerves are intact. Motor exam shows symmetric strength. There is no fix or drift. No tremor or dysmetria is present. Balance and gait are normal. No abnormal movements are seen including asterixis. SUMMARY: This is an elderly man with pretty significant renal failure who is pending dialysis. I think that the uremic stress was probably the etiology for his seizure. Continue the Keppra at a low dose and plan on discontinuing it later. Job ID: [id number]
--- NOTE | 2018-10-14 00:15 | CON ---
DATE OF CONSULTATION: REASON FOR CONSULT: Need for dialysis access. HISTORY OF PRESENT ILLNESS: Mr. Dubois is a 78-year-old man, who woke his up in the middle of the night with change in his respirations. She was unable to arouse him, although his blood sugar was over 200, so she called 911 and he was life flighted to [place] with suspicion of stroke. CT did not show anything acute and an MRI did not show anything definite either. It was felt that he was likely having seizures due to progressive renal disease. There is no clear evidence of metastasis to the brain. He does have renal cell carcinoma and is on imatinib for this and just finished his most recent cycle. PAST MEDICAL HISTORY: Metastatic left renal cell carcinoma, diabetes, hyperlipidemia, atrial fibrillation, hypertension, anemia, and chronic kidney disease. PAST SURGICAL HISTORY: Left nephrectomy, laparoscopic cholecystectomy with repair of umbilical hernia, two ablations for atrial fibrillation, tonsillectomy, and two hemorrhoid surgeries. ALLERGIES: IODINE. OUTPATIENT MEDICATIONS: Include; 1. Coreg. 2. Vitamin D. 3. Clonidine. 4. B12. 5. Insulin. 6. Synthroid. 7. Victoza. 8. MiraLAX. 9. Zocor. 10. Sutent. FAMILY HISTORY: Noncontributory. SOCIAL HISTORY: He does not smoke, drink, or use illicit drugs. 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 REVIEW OF SYSTEMS: Ten-system review of systems is negative except per HPI. Prior to this current episode, he had been doing very well on a renal diet with resolution of the swelling in his legs and fairly stable, although very poor renal function. He does not have any chest pain or shortness of breath and the multiple nodules in his lungs are either stable or diminishing on his most recent CT in July. PHYSICAL EXAMINATION: VITAL SIGNS: The patient is afebrile. Heart rate 60, respirations 20, 96% saturated on room air, blood pressure is high at 192/82. GENERAL: Reveals a pleasant elderly man, in no acute distress. He is not flushed or toxic in appearance. He is not jaundiced or icteric. HEENT: Unremarkable. NECK: Supple without lymphadenopathy or thyroid nodules. HEART: Regular in its rate and rhythm. He has a soft systolic murmur which does not radiate. No rubs or gallops are appreciated. LUNGS: Clear to auscultation bilaterally. ABDOMEN: Soft, nontender, and nondistended. He has healed laparoscopic and lower midline incisions without palpable hernias. No palpable inguinal hernias with cough or Valsalva. EXTREMITIES: Warm and well perfused without pitting edema. NEURO: No focal deficits. PSYCHIATRIC: Alert, oriented, and appropriate. He is right handed. He has slightly radial dominant filling in both hands on Maged testing. He appears to have a palpable cephalic vein at the level of the wrist on the right, I cannot appreciate one on the left. He has had multiple IVs and lab draws and is quite bruised. LABORATORY DATA: White count is low at 3, hemoglobin is 11.9, which is stable. Platelets are 86. Electrolytes are okay. Bicarb is a little low at 19 and BUN and creatinine are 65 and 5.57. Glucoses range between 76 and 162. Troponins are elevated during this admission at 0.4 and 0.5, but ejection fraction is good at 55% to 60% on echo. Diastolic dysfunction was noted with impaired relaxation seen and he had mild mitral regurgitation. He had some nonspecific ST and T-wave abnormalities on admission. ASSESSMENT: End-stage renal failure with possibly uremic seizure. Dr. Cohen has recommended institution of dialysis and the patient and his are ready to proceed at this point. His troponins are elevated, but his echocardiogram looks good. His platelets are low. He would like to proceed with peritoneal dialysis as his long-term dialysis option, we will need to start with hemodialysis. This can be done with minimal sedation and local anesthesia. I would like to wait for his platelets to rebound after his chemotherapy before attempting a laparoscopic peritoneal dialysis catheter. He could have extensive scarring due to his open nephrectomy. In addition, cardiology evaluation would likely be necessary before general anesthesia for a laparoscopic procedure. The patient has recently eaten, so I have placed him on the OR schedule for tomorrow. Inherent risks of surgery include, but are not limited to, bleeding, infection, risks of anesthesia including heart attack or stroke or aspiration, hemothorax, pneumothorax, and DVT. Antibiotics will be ordered transfer station operator. Job ID: [id number]
[2018-10-14 06:04] LABS: #Eosinphils 0.2 thou/uL (0.0-0.7); #Lymphocytes 0.8 thou/uL (1.20-3.40); #Monocytes 0.1 thou/uL (0.11-0.59); #Neutrophils 1.2 thou/uL (1.40-6.50); %Basophils 0.4 % (0.0-1.0); %Eosinophils 6.9 % (0.0-10.0); %Lymphocytes 36.9 % (21.0-51.0); %Monocytes 3.4 % (0.0-10.0); %Neutrophils 52.4 % (42.0-75.0); Anion Gap 12 mmol/L (10-20); BUN (Urea Nitrogen) 62 mg/dL (8.4-25.7); Calc. Creatinine Clearance 19 mL/min (70-130); Calcium 8.5 mg/dL (7.8-10.44); Carbon Dioxide 18 mmol/L (23-31); Chloride 110 mmol/L (98-107); Estimated GFR-MDRD 10; Glucose 166 mg/dL (83-110); Hemoglobin 11.9 g/dL (14.0-18.0); Mean Corpuscular HGB CONC 32.1 g/dL (32.0-36.0); Mean Corpuscular Hemoglobin 34.1 pg (27.0-31.0); Mean Platelet Volume 10.6 fL (7.4-10.4); Platelet Count 72 thou/uL (130-400); Potassium 4.2 mmol/L (3.5-5.1); RBC Distribution Width 14.9 % (11.5-14.5); Red Blood Cell (RBC) Count 3.48 mill/uL (4.70-6.10); Sodium 136 mmol/L (136-145); White Blood Cell (WBC) Count 2.2 thou/uL (4.8-10.8)
[2018-10-14] MEDS: Levothyroxine Sodium 75 MCG TAB PO SCH (06:25)
--- NOTE | 2018-10-14 09:08 | ULT ---
ULTRASOUND DISTAL MAPPING DIALYSIS ACCESS: HISTORY: End-stage renal disease. COMPARISON: None. TECHNIQUE: Real-time, ruiz scale, color Doppler, and spectral analysis bilateral upper extremity vascular system s was performed. RIGHT SIDE: Brachial artery 5 mm Radial artery 2.9 mm Ulnar artery 2.0 mm CEPHALIC: Proximal humerus 3.8 mm Mid humerus 4.1 mm Distal 4.3 mm Elbow 4.6 mm Proximal forearm 3.1 mm Mid 2.8 mm Distal 3.0 mm BASILIC: Proximal humerus 3.9 mm Mid humerus 6.6 mm Distal 3.2 mm Elbow 3.9 mm Proximal forearm 1.6 mm Mid 1.8 mm Distal 1.6 mm LEFT SIDE: Brachial artery 4.9 mm Radial artery 3.3 mm Ulnar artery 2.1 mm CEPHALIC: Proximal humerus 3.4 mm Mid humerus 4.1 mm Distal 4.1 mm Elbow nonocclusive clot Proximal forearm 1.1 mm Mid 0.7 mm Distal 2.3 mm BASILIC: Proximal humerus 4.1 mm Mid humerus 4.2 mm Distal 4.2 mm Elbow 3.6 mm Proximal forearm 3.4 mm Mid 2.1 mm Distal 1.2 mm IMPRESSION: Vascular size as above. Only partially occlusive thrombus left cephalic vein at the level of the elb ow. POS: CET
[2018-10-14] MEDS ORDERED: Ondansetron PF 4 MG/2 ML Vial ONE (10:08)
[2018-10-14] MEDS ORDERED: Lidocaine 2% PF 5 ML VIAL ONE (10:09)
[2018-10-14] MEDS ORDERED: Sodium Chloride 0.9% 20 ML ONE (10:09)
[2018-10-14] MEDS ORDERED: Bupivacaine/Epinephrine 0.25% 30 ML VIAL ONE (10:09)
[2018-10-14] MEDS ORDERED: Heparin 10,000 UNITS/1 ML VIAL ONE (10:09)
[2018-10-14] MEDS: Aspirin Chewable 81 MG TAB PO SCH (10:37)
[2018-10-14] MEDS: Enoxaparin Sodium 30 MG/0.3 ML SYRINGE SC SCH (10:37)
[2018-10-14] MEDS ORDERED: PROPOFOL 20 ML ONE (10:49)
[2018-10-14] MEDS ORDERED: Fentanyl 100 MCG/2 ML VIAL ONE (10:49)
[2018-10-14] MEDS ORDERED: Heparin 1,000 UNITS/ML VIAL ONE ×2 (11:11)
[2018-10-14] MEDS: Sodium Chloride 0.9% 1,000 ML IV SCH (13:24)
--- NOTE | 2018-10-14 13:46 | PDOC.PN ---
- Subjective Encounter Start Date: 10/14/18 Encounter Start Time: 15:00 Subjective: got his hemasplit HD catheter this am -: no sob -: no further seizures - Objective Resuscitation Status - Order Detail: 10/12/18 09:04 Resuscitation Status Routine Resuscitation Status: FULL: Full Resuscitation Discussed with: poa: LUIS ENRIQUE Reviewed: Yes Vital Signs & Weight: Vital Signs (12 hours) Temp Pulse Resp BP Pulse Ox 10/14/18 07:10 95 10/14/18 04:00 98.6 F 74 18 148/67 H 95 Weight Admit Weight 246 lb 13.44 oz Weight 246 lb 13.44 oz Most Recent Monitor Data Heart Rate from ECG 64 NIBP 175/81 NIBP BP-Mean 112 Respiration from ECG 11 SpO2 98 I&O: 10/13/18 10/14/18 10/15/18 06:59 06:59 06:59 Intake Total 1939 Balance 1939 Result Diagrams: 10/14/18 05:35 10/14/18 05:35 Additional Labs: Accuchecks 10/14/18 10/13/18 10/13/18 05:36 23:23 17:59 POC Glucose 149 H 221 H 154 H Phys Exam - Physical Examination HEENT: PERRLA, moist MMs Neck: no JVD, supple Respiratory: no wheezing, no rales Cardiovascular: RRR, no significant murmur Gastrointestinal: soft, non-tender, positive bowel sounds Musculoskeletal: no edema, pulses present Neurological: non-focal, moves all 4 limbs Psychiatric: A&O x 3 Dx/Plan (1) Seizure Code(s): R56.9 - UNSPECIFIED CONVULSIONS Status: Acute Comment: no further seizures after the 2 he had on admission (2) CVA (cerebral vascular accident) Code(s): I63.9 - CEREBRAL INFARCTION, UNSPECIFIED Status: Acute Qualifiers: CVA mechanism: unspecified Qualified Code(s): I63.9 - Cerebral infarction, unspecified Comment: has chronic afib (3) CHIRAG (acute kidney injury) Code(s): N17.9 - ACUTE KIDNEY FAILURE, UNSPECIFIED Status: Acute (4) CKD (chronic kidney disease) stage 5, GFR less than 15 ml/min Code(s): N18.5 - CHRONIC KIDNEY DISEASE, STAGE 5 Status: Chronic Comment: prior h/o nephrectomy on one side (5) HTN (hypertension) Code(s): I10 - ESSENTIAL (PRIMARY) HYPERTENSION Status: Chronic Qualifiers: Hypertension type: essential hypertension Qualified Code(s): I10 - Essential (primary) hypertension (6) H/O renal cell carcinoma Code(s): Z85.528 - PERSONAL HISTORY OF OTHER MALIGNANT NEOPLASM OF KIDNEY Status: Chronic Comment: on sunitinib (7) Acute encephalopathy Code(s): G93.40 - ENCEPHALOPATHY, UNSPECIFIED Status: Resolved Comment: likely due to seizure - Plan hemostable -: will start HD today with one hour session this afternoon -: on keppra -: continue coreg, clonidine, procardia xl -: to amb as tolerated, rehab eval * . Review of Systems - Medications/Allergies Allergies/Adverse Reactions: Allergies Allergy/AdvReac Type Severity Reaction Status Date / Time iodine Allergy Verified 10/12/18 14:40 Medications: Current Medications Acetaminophen (Tylenol) 650 mg LA Q4H PRN PRN Reason: Headache/Fever/Mild Pain (1-3) Acetaminophen (Tylenol) 650 mg PO Q4H PRN PRN Reason: Headache/Fever/Mild Pain (1-3) Last Admin: 10/13/18 09:08 Dose: 650 mg Aspirin (Aspirin Chewable) 81 mg PO DAILY [facility] Last Admin: 10/14/18 10:37 Dose: Not Given Atorvastatin Calcium (Lipitor) 10 mg PO HS [facility] Last Admin: 10/13/18 21:34 Dose: 10 mg Carvedilol (Coreg) 25 mg PO BID [facility] Last Admin: 10/13/18 21:34 Dose: 25 mg Clonidine (Omndauvs-Vuc-3) 0.2 mg TD Q7D [facility] Last Admin: 10/12/18 15:32 Dose: 0.2 mg Cyanocobalamin (Vitamin B-12) 1,000 mcg PO DAILY [facility] Last Admin: 10/13/18 09:08 Dose: 1,000 mcg Dextrose/Water (Dextrose 50%) 25 gm SLOW IVP PRN PRN PRN Reason: Hypoglycemia Enoxaparin Sodium (Lovenox) 30 mg SC 0900 [facility] Last Admin: 10/14/18 10:37 Dose: Not Given Famotidine (Pepcid) 20 mg SLOW IVP 2100 [facility] Last Admin: 10/13/18 21:35 Dose: 20 mg Glucagon (Glucagon) 1 mg IM PRN PRN PRN Reason: Hypoglycemia Hydralazine HCl (Apresoline) 10 mg SLOW IVP Q4H PRN PRN Reason: BP > 220/110 Last Admin: 10/13/18 11:48 Dose: 10 mg Dextrose/Water (D5w) 1,000 mls @ 0 mls/hr IV .Q0M PRN PRN Reason: Hypoglycemia Levetiracetam 250 mg/ Sodium (Chloride) 102.5 mls @ 205 mls/hr IVPB BID [facility] Last Admin: 10/13/18 21:35 Dose: 102.5 mls Insulin Human Lispro (Humalog) 0 units SC .MODERATE SLIDING SC PRN PRN Reason: Moderate Correctional Scale Insulin Human Lispro (Humalog) 0 units SC .BEDTIME SLIDING SC PRN PRN Reason: Bedtime Correctional Scale Labetalol HCl (Normodyne) 20 mg SLOW IVP Q1H PRN PRN Reason: BP > 220/110 Last Admin: 10/12/18 17:36 Dose: 20 mg Levothyroxine Sodium (Synthroid) 75 mcg PO 0600 [facility] Last Admin: 10/14/18 06:25 Dose: 75 mcg Lorazepam (Ativan) 2 mg SLOW IVP Q15MIN PRN PRN Reason: Seizures Nifedipine (Procardia Xl) 30 mg PO [facility] Last Admin: 10/13/18 21:35 Dose: 30 mg Ondansetron HCl (Zofran) 4 mg IVP Q6H PRN PRN Reason: Nausea/Vomiting Polyethylene Glycol (Miralax) 17 gm PO [facility] Last Admin: 10/13/18 21:36 Dose: 17 gm Sodium Chloride (Flush - Normal Saline) 10 ml IVF PRN PRN PRN Reason: Saline Flush Last Admin: 10/12/18 21:10 Dose: 10 ml Tramadol HCl (Ultram) 50 mg PO Q6H PRN PRN Reason: Pain 4-6 Last Admin: 10/13/18 15:05 Dose: 50 mg Tuberculin PPD (Aplisol) 0.1 ml I-DERMAL ONE [facility] Stop: 10/16/18 09:01 Last Admin: 10/13/18 09:54 Dose: 0.1 ml
[2018-10-14] MEDS ORDERED: PROPOFOL 200 MG/20 ML VIAL ONE (14:21)
[2018-10-14] MEDS ORDERED: Heparin 10,000 UNITS/ 10 ML VIAL ONE (14:21)
--- NOTE | 2018-10-14 14:28 | PDOC.OP ---
Operative Note - Operative Note Operative Note: PROCEDURE: Placement of right internal jugular tunneled hemodialysis catheter with ultrasound and fluoroscopic guidance. SURGEON: Freeman Cho M.D. DATE OF PROCEDURE: 10/14/2018 PREOPERATIVE DIAGNOSIS: End-stage renal failure. POSTOPERATIVE DIAGNOSIS: End-stage renal failure. HISTORY: Patient with recent seizures felt to be due to uremia. A tunneled hemodialysis catheter for initiation of dialysis has been requested by the patients manager highway. PROCEDURE: After informed consent was obtained and appropriate preoperative antibiotics were administered, the patient was taken to the Operating Room, placed in the supine position and monitored anesthesia care was administered. The neck and chest were prepped and draped in a standard sterile fashion and the patient placed in Trendelenburg position. A sterile ultrasound probe was used to identify the patent compressible right IJ vein which was accessed under direct ultrasound guidance. A wire was threaded through the needle and confirmed by ultrasound to be within the patent compressible vessel with the tip in the vena cava by fluoroscopy. Local anesthesia was infused to the skin and subcutaneous tissues of the right neck and chest. An infraclavicular incision was made and a catheter tunneled from the infraclavicular to the right IJ access site. The right IJ was sequentially dilated over the wire following which a dilator and sheath were placed over the wire and the dilator and wire removed leaving the sheath in place. The catheter was tunneled through the sheath which was then split and removed leaving the catheter in place. This was confirmed by fluoroscopy to be in good position in the superior vena cava with no kinking of the course of the catheter. Both ports easily aspirated dark venous nonpulsatile blood and easily flushed without resistance. Heparin was instilled to the quantity specified on the hub, and the hub was secured to the skin with 3-0 nylon sutures. The skin incision at the neck was closed in two layers with 4-0 Monocryl suture and Dermabond dressings were placed. The skin at the exit site was snugged up around the catheter with 4-0 Monocryl suture and Dermabond was placed there as well. Once the Dermabond was dry, a Biopatch and Tegaderm dressing was placed at the exit site. The patient was taken to Recovery in good condition. Estimated blood loss was minimal. There were no complications. There were no specimens.
[2018-10-14] MEDS: Carvedilol 25 MG TAB PO SCH ×2 (15:10→20:06)
[2018-10-14] MEDS: traMADol HCl 50 MG TAB PO PRN (15:10)
[2018-10-14] MEDS: Cyanocobalamin (Vitamin B-12) 1,000 MCG TAB PO SCH (15:10)
--- NOTE | 2018-10-14 15:34 | PRG ---
DATE OF SERVICE: 10/14/2018 SERVICE: Renal Medicine SUBJECTIVE: Mr. Dubois is a 78-year-old white male, who was admitted for a new-onset seizure. The possible diagnosis of this may be related to his chronic renal failure. For that reason, he was initially on dialysis. He received a 1-hour dialysis today and he tolerated said treatment. The planned PD catheter placement will be done when Dr. Cho goes back next week. No other complaints today. OBJECTIVE: VITAL SIGNS: Blood pressure is 201/100, heart rate 68, respiratory rate 14, temperature 97.7, and pulse ox 97%. GENERAL: Awake, alert, comfortable, not in distress. SKIN: Adequate turgor. HEENT: He has pinkish conjunctivae. Anicteric sclerae. NECK: No neck mass. No carotid bruits. No JVD. CHEST: No deformities. LUNGS: Clear breath sounds. HEART: Normal sinus rhythm. No murmurs. No gallops. No rubs. ABDOMEN: Globular, soft, and nontender. No masses. EXTREMITIES: No edema. No deformities. CHEST: He has a cuffed dialysis catheter, right. LABORATORY DATA: Laboratories of October 14, 2018; white count 2.2, hemoglobin 11.9, and platelet count is 72,000. Sodium 136, potassium 4.2, chloride 110, carbon dioxide 18, BUN 62, creatinine 5.37, glucose 166, and calcium 8.5. MEDICATIONS: Medications of October 14, 2018, was reviewed. ASSESSMENT AND PLAN: 1. Chronic renal failure - secondary to diabetic nephropathy - solitary kidney. Continue current hemodialysis regimen. Our plan is to do a 2-hour hemodialysis tomorrow and then 3 hours this coming Wednesday. Tolerating fluid removal. Continue current management. 2. New-onset seizure. No recurrence, stable on Keppra. 3. Renal cancer, in remission. Consultation with Oncology has already been done. 4. Mildly decreased platelet count, most likely related to his chemotherapy. Overall prognosis remains guarded. Job ID: [id number]
--- NOTE | 2018-10-14 15:54 | CON ---
DATE OF CONSULTATION: 10/14/2018 REASON FOR CONSULTATION: Elevated troponin. Dr. Cho is the primary provider. HISTORY OF PRESENT ILLNESS: Mr. Dubois is a very pleasant 78-year-old gentleman with previous history of renal cell cancer over the last 7 years, who recently presented with a seizure. Troponin was drawn and was elevated. Mr. Dubois has no previous history of underlying coronary artery disease. He denies chest pain, pressure, or other associated symptoms. His renal function has also markedly declined and is now requiring dialysis. PAST MEDICAL HISTORY: Renal cell carcinoma with metastases; diabetes mellitus; hyperlipidemia; hypertension; anemia; chronic kidney disease, now end-stage renal disease; nephrectomy; status post AFib ablation; tonsillectomy; and hernia repair. ALLERGIES: IODINE. HOME MEDICATIONS: Include; 1. Zocor. 2. MiraLAX. 3. Victoza. 4. Synthroid. REVIEW OF SYSTEMS: A 10-point review of systems is reviewed and as above, negative. PHYSICAL EXAMINATION: GENERAL: The patient is a pleasant gentleman, who is in no acute distress. The patient appears their stated age. VITAL SIGNS: Blood pressure 140/67, pulse 74, and temperature 98.6. NEUROLOGIC: The patient is alert and oriented x3 with no focal neurologic deficits. HEENT: Sclerae without icterus. Mouth has moist mucous membranes with normal pallor. NECK: No JVD. Carotid upstroke brisk. No bruits bilaterally. LUNGS: Clear to auscultation with unlabored respirations. BACK: No scoliosis or kyphosis. CARDIAC: Regular rate and rhythm with normal S1 and S2. No S3 or S4 noted. No significant rubs, murmurs, thrills, or gallops noted throughout the precordium. PMI is not displaced. There is no parasternal heave. ABDOMEN: Soft, nontender, nondistended. No peritoneal signs present. No hepatosplenomegaly. No abnormal striae. EXTREMITIES: 2+ femoral and 2+ dorsalis pedis pulses. No cyanosis, clubbing, or edema. SKIN: No gross abnormalities. PERTINENT LABORATORY DATA: Hemoglobin 11.9, white blood cell count 2.2, and platelet count is 72. Troponin 0.508. IMPRESSION: 1. Elevated troponin. 2. Metastatic renal cell cancer. 3. Recent seizures. 4. End-stage renal disease. 5. Atrial fibrillation, status post ablation. RECOMMENDATIONS: From a CV standpoint, Mr. Dubois has no current symptoms suggesting angina. 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 He has elevated troponin likely secondary to a recent seizure in addition to end-stage renal disease. He has no current symptoms suggesting angina. We will review his echo. Otherwise, we will treat medically. May benefit from an outpatient stress test. After review of his echo, his LVEF is 55% to 60% with normal left atrial size. Continue aspirin, atorvastatin, and carvedilol. We will need to have disposition on this previous history of paroxysmal atrial fibrillation, status post ablation and may benefit from a long-term anticoagulation therapy, although may be at increased risk of bleeding given renal cell cancer. Job ID: [id number] ZARA
[2018-10-14] MEDS: Polyethylene Glycol 3350 17 GM Packet PO SCH (20:06)
[2018-10-14] MEDS: NIFEdipine XL 30 MG TAB PO SCH (20:06)
[2018-10-14] MEDS: Atorvastatin Calcium 10 MG TAB PO SCH (20:06)
[2018-10-14] MEDS: Famotidine/PF 20 mg/2ml Vial SLOW IVP SCH (20:07)
[2018-10-15] MEDS: Levothyroxine Sodium 75 MCG TAB PO SCH (05:19)
[2018-10-15] MEDS: Enoxaparin Sodium 30 MG/0.3 ML SYRINGE SC SCH (09:10)
[2018-10-15] MEDS: Carvedilol 25 MG TAB PO SCH ×2 (09:10→21:24)
[2018-10-15] MEDS: Cyanocobalamin (Vitamin B-12) 1,000 MCG TAB PO SCH (09:10)
[2018-10-15] MEDS: Aspirin Chewable 81 MG TAB PO SCH (09:10)
--- NOTE | 2018-10-15 10:39 | PRG ---
DATE OF SERVICE: 10/15/2018 SUBJECTIVE: Mr. Dubois is a 78-year-old white male, who was admitted for new onset seizure. The feeling is that seizure may be related to his uremia. He has been initiated on dialysis. He underwent one-hour hemodialysis yesterday and tolerated said treatment. The plan is to have him do a 2-hour hemodialysis today. The patient has opted to do peritoneal dialysis. His PD catheter will be inserted when Dr. Cho comes back. No other complaints. No chest pain or shortness of breath. No recurrence of seizures. OBJECTIVE: VITAL SIGNS: Blood pressure 159/72, heart rate 68, respiratory rate 16, temperature 99.1, and pulse ox 96%. GENERAL: Awake, alert, sitting comfortable, not in distress. SKIN: Adequate turgor. HEENT: He has a pinkish conjunctivae. Anicteric sclerae. NECK: No neck mass. No carotid bruits. No JVD. CHEST: No deformities. LUNGS: Clear breath sounds. HEART: Normal sinus rhythm. No murmur, no gallops, no rubs. ABDOMEN: globular, soft, nontender. No masses. EXTREMITIES: No edema. No deformities. MEDICATIONS: Medications of October 15, 2018, were reviewed. LABORATORY DATA: Laboratories of October 14, 2018, sodium 136, potassium 4.2, chloride 110, carbon dioxide 18, BUN 62, creatinine 5.37. White count 2.2, hemoglobin 11.9, hematocrit 37. ASSESSMENT AND PLAN: 1. Chronic renal failure/end-stage renal disease-currently on maintenance hemodialysis. He will be on temporary hemodialysis and will be converted to peritoneal dialysis once the PD catheter is placed, tolerating said treatment. 2. New onset seizure-most likely related to his uremia. We will taper off Keppra in the next several days after placing the patient on a regular dialysis regimen. My feeling is this patient probably do 2 times a week hemodialysis since I feel he has some residual renal function. We will be rechecking phosphorus and intact PTH today. 3. Overall, I agree with current management. Case discussed with the patient and his . Job ID: [id number]
[2018-10-15] MEDS: HumaLOG 300 UNITS/3 ML VIAL SC PRN (10:58)
[2018-10-15] MEDS ORDERED: Heparin 1,000 UNITS/ML VIAL ONE (11:11)
--- NOTE | 2018-10-15 11:39 | PDOC.PN ---
- Subjective Encounter Start Date: 10/15/18 Encounter Start Time: 09:15 Subjective: sitting in chair, oriented well, no sob -: was a bit confused this am for brief period but is back to normal -: no seizure like activity - Objective Resuscitation Status - Order Detail: 10/12/18 09:04 Resuscitation Status Routine Resuscitation Status: FULL: Full Resuscitation Discussed with: poa: LUIS ENRIQUE Reviewed: Yes Vital Signs & Weight: Vital Signs (12 hours) Temp Pulse Pulse Resp BP BP Pulse Ox 10/15/18 09:10 68 159/72 H 10/15/18 07:31 99.1 F 68 16 159/72 H 96 10/15/18 07:20 96 10/15/18 03:54 97.9 F 66 20 141/74 H 94 L 10/14/18 23:53 98.1 F 65 12 177/80 H 97 Pulse Ox 10/15/18 09:10 96 10/15/18 07:31 10/15/18 07:20 10/15/18 03:54 10/14/18 23:53 Weight Admit Weight 246 lb 13.44 oz Weight 246 lb 4.8 oz Most Recent Monitor Data Heart Rate from ECG 64 NIBP 175/81 NIBP BP-Mean 112 Respiration from ECG 11 SpO2 98 I&O: 10/14/18 10/15/18 10/16/18 06:59 06:59 07:59 Intake Total 1940 810 300 Output Total 600 Balance 1940 210 300 Result Diagrams: 10/14/18 05:35 10/14/18 05:35 Additional Labs: Accuchecks 10/15/18 10/15/18 10/14/18 10:36 05:24 23:58 POC Glucose 252 H 145 H 203 H 10/14/18 17:01 POC Glucose 156 H Phys Exam - Physical Examination HEENT: PERRLA, moist MMs Neck: no JVD, supple Respiratory: no wheezing, no rales Cardiovascular: no significant murmur, irregular Gastrointestinal: soft, non-tender, positive bowel sounds Musculoskeletal: pulses present, edema present Neurological: non-focal, moves all 4 limbs Psychiatric: normal affect, A&O x 3 Dx/Plan (1) Seizure Code(s): R56.9 - UNSPECIFIED CONVULSIONS Status: Acute Comment: no further seizures after the 2 he had on admission (2) CVA (cerebral vascular accident) Code(s): I63.9 - CEREBRAL INFARCTION, UNSPECIFIED Status: Acute Qualifiers: CVA mechanism: unspecified Qualified Code(s): I63.9 - Cerebral infarction, unspecified Comment: has chronic afib (3) CHIRAG (acute kidney injury) Code(s): N17.9 - ACUTE KIDNEY FAILURE, UNSPECIFIED Status: Acute (4) CKD (chronic kidney disease) stage 5, GFR less than 15 ml/min Code(s): N18.5 - CHRONIC KIDNEY DISEASE, STAGE 5 Status: Chronic Comment: prior h/o nephrectomy on one side (5) HTN (hypertension) Code(s): I10 - ESSENTIAL (PRIMARY) HYPERTENSION Status: Chronic Qualifiers: Hypertension type: essential hypertension Qualified Code(s): I10 - Essential (primary) hypertension (6) H/O renal cell carcinoma Code(s): Z85.528 - PERSONAL HISTORY OF OTHER MALIGNANT NEOPLASM OF KIDNEY Status: Chronic Comment: on sunitinib (7) Acute encephalopathy Code(s): G93.40 - ENCEPHALOPATHY, UNSPECIFIED Status: Resolved Comment: likely due to seizure - Plan is on asp, lipitor, coreg, procardia, clonidine tts -: add hydralazine, oral keppra, afib is rate controlled for now -: is going for 2 hr HD session today -: has been amb with PT, clinically is doing well -: d/w pt and at bedside, add eliquis for afib with current cva * . Review of Systems - Medications/Allergies Allergies/Adverse Reactions: Allergies Allergy/AdvReac Type Severity Reaction Status Date / Time iodine Allergy Verified 10/12/18 14:40 Medications: Current Medications Acetaminophen (Tylenol) 650 mg UT Q4H PRN PRN Reason: Headache/Fever/Mild Pain (1-3) Acetaminophen (Tylenol) 650 mg PO Q4H PRN PRN Reason: Headache/Fever/Mild Pain (1-3) Last Admin: 10/13/18 09:08 Dose: 650 mg Aspirin (Aspirin Chewable) 81 mg PO DAILY [facility] Last Admin: 10/15/18 09:10 Dose: 81 mg Atorvastatin Calcium (Lipitor) 10 mg PO HS [facility] Last Admin: 10/14/18 20:06 Dose: 10 mg Carvedilol (Coreg) 25 mg PO BID [facility] Last Admin: 10/15/18 09:10 Dose: 25 mg Clonidine (Npfxsnqj-Nrj-3) 0.2 mg TD Q7D [facility] Last Admin: 10/12/18 15:32 Dose: 0.2 mg Cyanocobalamin (Vitamin B-12) 1,000 mcg PO DAILY [facility] Last Admin: 10/15/18 09:10 Dose: 1,000 mcg Dextrose/Water (Dextrose 50%) 25 gm SLOW IVP PRN PRN PRN Reason: Hypoglycemia Enoxaparin Sodium (Lovenox) 30 mg SC 0900 [facility] Last Admin: 10/15/18 09:10 Dose: 30 mg Famotidine (Pepcid) 20 mg PO DAILY [facility] Glucagon (Glucagon) 1 mg IM PRN PRN PRN Reason: Hypoglycemia Hydralazine HCl (Apresoline) 10 mg SLOW IVP Q4H PRN PRN Reason: BP > 220/110 Last Admin: 10/13/18 11:48 Dose: 10 mg Dextrose/Water (D5w) 1,000 mls @ 0 mls/hr IV .Q0M PRN PRN Reason: Hypoglycemia Insulin Human Lispro (Humalog) 0 units SC .MODERATE SLIDING SC PRN PRN Reason: Moderate Correctional Scale Last Admin: 10/15/18 10:58 Dose: 6 unit Insulin Human Lispro (Humalog) 0 units SC .BEDTIME SLIDING SC PRN PRN Reason: Bedtime Correctional Scale Labetalol HCl (Normodyne) 20 mg SLOW IVP Q1H PRN PRN Reason: BP > 220/110 Last Admin: 10/12/18 17:36 Dose: 20 mg Levetiracetam (Keppra) 250 mg PO BID [facility] Levothyroxine Sodium (Synthroid) 75 mcg PO 0600 [facility] Last Admin: 10/15/18 05:19 Dose: 75 mcg Lorazepam (Ativan) 2 mg SLOW IVP Q15MIN PRN PRN Reason: Seizures Nifedipine (Procardia Xl) 30 mg PO HS [facility] Last Admin: 10/14/18 20:06 Dose: 30 mg Ondansetron HCl (Zofran) 4 mg IVP Q6H PRN PRN Reason: Nausea/Vomiting Polyethylene Glycol (Miralax) 17 gm PO HS [facility] Last Admin: 10/14/18 20:06 Dose: 17 gm Sodium Chloride (Flush - Normal Saline) 10 ml IVF PRN PRN PRN Reason: Saline Flush Last Admin: 10/12/18 21:10 Dose: 10 ml Tramadol HCl (Ultram) 50 mg PO Q6H PRN PRN Reason: Pain 4-6 Last Admin: 10/14/18 15:10 Dose: 50 mg Tuberculin PPD (Aplisol) 0.1 ml I-DERMAL ONE [facility] Stop: 10/16/18 09:01 Last Admin: 10/13/18 09:54 Dose: 0.1 ml
--- NOTE | 2018-10-15 14:13 | PDOC.CTH ---
Cardiology Progress Note - Subjective No current complaints. No overnight events. - Objective Vital Signs Temp Pulse Pulse Resp BP BP Pulse Ox 10/15/18 12:00 98.7 F 66 20 169/79 H 98 10/15/18 09:10 68 159/72 H 10/15/18 07:31 99.1 F 68 16 159/72 H 96 10/15/18 07:20 96 10/15/18 03:54 97.9 F 66 20 141/74 H 94 L Pulse Ox 10/15/18 12:00 10/15/18 09:10 96 10/15/18 07:31 10/15/18 07:20 10/15/18 03:54 Admit Weight 246 lb 13.44 oz Weight 246 lb 4.8 oz 10/14/18 10/15/18 10/16/18 06:59 06:59 07:59 Intake Total 1940 810 600 Output Total 600 Balance 1940 210 600 - Physical Examination General/Neuro: alert & oriented x3 Neck: no JVD present Lungs: CTA Heart: RRR Abdomen: NT/ND - Telemetry Telemetry Rhythm: SR - Labs Result Diagrams: 10/14/18 05:35 10/14/18 05:35 Troponin/CKMB CK-MB (CK-2) 6.0 ng/mL (0-6.6) 10/12/18 04:20 Troponin I 0.508 ng/mL (< 0.028) H* 10/12/18 07:20 - Assessment/Plan 1. New-onset Seizure disorder 2. AUGIE/CKD - 5 3. Hx paroxysmal AF s/p PVAI 2006 4. Aflutter s/p RFA 2002 5. NICMO (EF 35-40% 2005) 6. Mild-moderate CAD by [facility] 2005 7. Renal Cell CA with METS 8. HTN 9. DM-II 10. Elevated Trop 11. Low platelets Currently stable. Continue treatment of seizures per neuro and primary team. Hydralazine added for HTN. Consider outpatient stress. Patient with mild CAD diagnosed by cath 2005. Discussed AF history. No recurrance documented since 2006, but patient with elevated CHADS2-VASc score and also high risk of bleeding. No NOAC for now.
[2018-10-15 15:21] LABS: #Eosinphils 0.1 thou/uL (0.0-0.7); #Lymphocytes 0.9 thou/uL (1.20-3.40); #Monocytes 0.1 thou/uL (0.11-0.59); #Neutrophils 1.1 thou/uL (1.40-6.50); %Basophils 1.4 % (0.0-1.0); %Eosinophils 5.3 % (0.0-10.0); %Lymphocytes 39.1 % (21.0-51.0); %Monocytes 5.5 % (0.0-10.0); %Neutrophils 48.7 % (42.0-75.0); Hemoglobin 11.5 g/dL (14.0-18.0); Mean Corpuscular HGB CONC 32.7 g/dL (32.0-36.0); Mean Corpuscular Hemoglobin 34.7 pg (27.0-31.0); Mean Platelet Volume 10.7 fL (7.4-10.4); Platelet Count 66 thou/uL (130-400); RBC Distribution Width 14.7 % (11.5-14.5); Red Blood Cell (RBC) Count 3.31 mill/uL (4.70-6.10); White Blood Cell (WBC) Count 2.3 thou/uL (4.8-10.8)
[2018-10-15 15:32] LABS: Anion Gap 9 mmol/L (10-20); BUN (Urea Nitrogen) 56 mg/dL (8.4-25.7); Calc. Creatinine Clearance 20 mL/min (70-130); Calcium 8.9 mg/dL (7.8-10.44); Carbon Dioxide 26 mmol/L (23-31); Chloride 107 mmol/L (98-107); Estimated GFR-MDRD 11; Glucose 127 mg/dL (83-110); Phosphorus 3.2 mg/dL (2.3-4.7); Potassium 4.2 mmol/L (3.5-5.1); Sodium 138 mmol/L (136-145)
[2018-10-15] MEDS: Tuberculin PPD 0.1 ML VIAL I-DERMAL SCH (17:19)
[2018-10-15] MEDS: hydrALAZINE 25 MG TAB PO SCH ×2 (17:20→21:24)
[2018-10-15] MEDS: Apixaban 2.5 MG TAB PO SCH (18:23)
[2018-10-15] MEDS: Polyethylene Glycol 3350 17 GM Packet PO SCH (21:23)
[2018-10-15] MEDS: NIFEdipine XL 30 MG TAB PO SCH (21:23)
[2018-10-15] MEDS: Atorvastatin Calcium 10 MG TAB PO SCH (21:23)
[2018-10-15] MEDS: levETIRAcetam 500 MG TAB PO SCH (21:24)
[2018-10-16] MEDS ORDERED: hydrALAZINE 20 MG/ML VIAL SLOW IVP PRN (01:55)
[2018-10-16] MEDS ORDERED: Nitroglycerin 2% Ointment 1 INCH/1 GM Packet TOP PRN (01:55)
[2018-10-16] MEDS: Levothyroxine Sodium 75 MCG TAB PO SCH (05:48)
--- NOTE | 2018-10-16 10:52 | PRG ---
DATE OF SERVICE: 10/16/2018 SUBJECTIVE: Mr. Dubois is a 78-year-old white male with chronic renal failure and admitted for new onset seizure. The feeling was that the seizure may be related to his underlying uremic signs and symptoms. He has been initiated on dialysis. He is currently undergoing hemodialysis. I am at the bedside supervising his dialysis. Attempting to remove 1.5 L of fluid. No complaints of chest pain or shortness of breath. I did note the blood pressures today is fluctuating. OBJECTIVE: VITAL SIGNS: Blood pressure is noted at 153/63, heart rate 69, respiratory rate 20, temperature 98.3, and pulse ox 93%. GENERAL: Noted to be awake, comfortable, not in overt distress. SKIN: Adequate turgor. HEENT: He has pinkish conjunctivae. Anicteric sclerae. NECK: No neck mass. No carotid bruits. No JVD. CHEST: No deformities. LUNGS: Clear breath sounds. HEART: Normal sinus rhythm. No murmur. No gallops. No rubs. ABDOMEN: Globular, soft, nontender. No masses. EXTREMITIES: No edema. No deformities. LABORATORY DATA: Laboratories of October 15, 2018; white count 2.3, hemoglobin 11.5. October 16, 2018, glucose 130. October 15, 2018; BUN 56, creatinine 4.97, potassium 4.2. MEDICATIONS: Medications of October 16, 2018, was reviewed. ASSESSMENT AND PLAN: 1. Labile hypertension. Add losartan 25 mg tablet at bedtime. Continue other BP medications. 2. Elevated PTH-October 15, 2018, PTH was noted 256. We will start calcitriol 0.25 mcg tablet daily. 3. Chronic renal failure/End-stage renal disease, continuing hemodialysis regimen. Today, we will do a 3-hour dialysis, tomorrow we will again schedule him for 3 hours. As previously mentioned, my feeling is this patient can probably tolerate a 2-hour, 2-day per week hemodialysis. We are awaiting for PD catheter placement next week by Dr. Cho. Overall agree with current management. Job ID: [id number]
[2018-10-16] MEDS ORDERED: Heparin 1,000 UNITS/ML VIAL ONE (11:11)
--- NOTE | 2018-10-16 12:50 | PDOC.CTH ---
Cardiology Progress Note - Subjective No complaints overnight. No changes. Rhythm stable. Eliquis subtherapeutic dose written yesterday, but patient refused. - Objective Vital Signs Temp Pulse Resp BP Pulse Ox 10/16/18 08:00 98.3 F 69 20 153/63 H 93 L 10/16/18 04:00 98.4 F 76 16 133/62 93 L 10/16/18 00:00 98.7 F 67 16 192/82 H 94 L Admit Weight 246 lb 13.44 oz Weight 233 lb 11.2 oz 10/15/18 10/16/18 10/17/18 05:59 06:59 06:59 Intake Total Output Total Balance - Physical Examination General/Neuro: alert & oriented x3 Neck: no JVD present Lungs: CTA Heart: RRR Abdomen: NT/ND - Telemetry Telemetry Rhythm: SR - Labs Result Diagrams: 10/15/18 14:55 10/15/18 14:55 Troponin/CKMB CK-MB (CK-2) 6.0 ng/mL (0-6.6) 10/12/18 04:20 Troponin I 0.508 ng/mL (< 0.028) H* 10/12/18 07:20 - Assessment/Plan 1. New-onset Seizure disorder 2. AUGIE/CKD - 5 3. Hx paroxysmal AF s/p PVAI 2006 4. Aflutter s/p RFA 2002 5. NICMO (EF 35-40% 2005) 6. Mild-moderate CAD by [facility] 2005 7. Renal Cell CA with METS 8. HTN 9. DM-II 10. Elevated Trop 11. Low platelets Discussed care with patient. No documented AF since 2006. Discussed CVA risk. He says he spoke to last night and after long discussion today understands CVA risk vs bleeding risk on NOACs. Does not want Eliquis. Will d/c. Otherwise no changes.
[2018-10-16] MEDS: levETIRAcetam 500 MG TAB PO SCH ×2 (13:12→21:07)
[2018-10-16] MEDS: Cyanocobalamin (Vitamin B-12) 1,000 MCG TAB PO SCH (13:12)
[2018-10-16] MEDS: Aspirin Chewable 81 MG TAB PO SCH (13:12)
[2018-10-16] MEDS: Famotidine 20 MG TAB PO SCH (13:13)
[2018-10-16] MEDS: hydrALAZINE 25 MG TAB PO SCH ×3 (13:13→21:06)
[2018-10-16] MEDS: Carvedilol 25 MG TAB PO SCH ×2 (13:13→21:06)
[2018-10-16] MEDS: Apixaban 2.5 MG TAB PO SCH (13:41)
--- NOTE | 2018-10-16 13:46 | PDOC.PN ---
- Subjective Encounter Start Date: 10/16/18 Encounter Start Time: 12:15 Subjective: got his HD this am, no sob, is tolerating HD well -: is awake and oriented - Objective Resuscitation Status - Order Detail: 10/12/18 09:04 Resuscitation Status Routine Resuscitation Status: FULL: Full Resuscitation Discussed with: poa: LUIS ENRIQUE Reviewed: Yes Vital Signs & Weight: Vital Signs (12 hours) Temp Pulse Resp BP Pulse Ox 10/16/18 08:00 98.3 F 69 20 153/63 H 93 L 10/16/18 04:00 98.4 F 76 16 133/62 93 L Weight Admit Weight 246 lb 13.44 oz Weight 233 lb 11.2 oz Most Recent Monitor Data Heart Rate from ECG 64 NIBP 175/81 NIBP BP-Mean 112 Respiration from ECG 11 SpO2 98 I&O: 10/15/18 10/16/18 10/17/18 05:59 06:59 06:59 Intake Total Output Total Balance Result Diagrams: 10/15/18 14:55 10/15/18 14:55 Additional Labs: Accuchecks 10/16/18 10/16/18 10/15/18 08:11 05:48 20:14 POC Glucose 130 H 138 H 179 H 10/15/18 17:18 POC Glucose 117 H Phys Exam - Physical Examination HEENT: PERRLA, moist MMs Neck: no JVD, supple Respiratory: no wheezing, no rales Cardiovascular: no significant murmur, irregular Gastrointestinal: soft, non-tender, positive bowel sounds Musculoskeletal: no edema, pulses present Neurological: non-focal, moves all 4 limbs Psychiatric: normal affect, A&O x 3 Dx/Plan (1) Seizure Code(s): R56.9 - UNSPECIFIED CONVULSIONS Status: Acute Comment: no further seizures after the 2 he had on admission (2) CVA (cerebral vascular accident) Code(s): I63.9 - CEREBRAL INFARCTION, UNSPECIFIED Status: Acute Qualifiers: CVA mechanism: unspecified Qualified Code(s): I63.9 - Cerebral infarction, unspecified Comment: has chronic afib (3) CHIRAG (acute kidney injury) Code(s): N17.9 - ACUTE KIDNEY FAILURE, UNSPECIFIED Status: Acute Comment: initiated on HD (4) CKD (chronic kidney disease) stage 5, GFR less than 15 ml/min Code(s): N18.5 - CHRONIC KIDNEY DISEASE, STAGE 5 Status: Chronic Comment: prior h/o nephrectomy on one side (5) HTN (hypertension) Code(s): I10 - ESSENTIAL (PRIMARY) HYPERTENSION Status: Chronic Qualifiers: Hypertension type: essential hypertension Qualified Code(s): I10 - Essential (primary) hypertension (6) H/O renal cell carcinoma Code(s): Z85.528 - PERSONAL HISTORY OF OTHER MALIGNANT NEOPLASM OF KIDNEY Status: Chronic Comment: on sunitinib (7) Acute encephalopathy Code(s): G93.40 - ENCEPHALOPATHY, UNSPECIFIED Status: Resolved Comment: likely due to seizure - Plan hemo/neurostable, PT to mobilize more as tolerated -: awaiting HD chair for dc plan -: pt and family donot want eliquis, are aware of risks of cva -: on keppra, to dc after 25 days on HD, seizures likely due to uremia -: is on asp, lipitor, coreg, clonidine, procardia and cozaar * . Review of Systems - Medications/Allergies Allergies/Adverse Reactions: Allergies Allergy/AdvReac Type Severity Reaction Status Date / Time iodine Allergy Verified 10/12/18 14:40 Medications: Current Medications Acetaminophen (Tylenol) 650 mg W[place] Q4H PRN PRN Reason: Headache/Fever/Mild Pain (1-3) Acetaminophen (Tylenol) 650 mg PO Q4H PRN PRN Reason: Headache/Fever/Mild Pain (1-3) Last Admin: 10/13/18 09:08 Dose: 650 mg Aspirin (Aspirin Chewable) 81 mg PO DAILY [facility] Last Admin: 10/16/18 13:12 Dose: 81 mg Atorvastatin Calcium (Lipitor) 10 mg PO HS [facility] Last Admin: 10/15/18 21:23 Dose: 10 mg Calcitriol (Rocaltrol) 0.25 mcg PO DAILY [facility] Carvedilol (Coreg) 25 mg PO BID [facility] Last Admin: 10/16/18 13:13 Dose: 25 mg Clonidine (Ykbpnqfx-Ulh-4) 0.2 mg TD Q7D [facility] Last Admin: 10/12/18 15:32 Dose: 0.2 mg Cyanocobalamin (Vitamin B-12) 1,000 mcg PO DAILY [facility] Last Admin: 10/16/18 13:12 Dose: 1,000 mcg Dextrose/Water (Dextrose 50%) 25 gm SLOW IVP PRN PRN PRN Reason: Hypoglycemia Famotidine (Pepcid) 20 mg PO DAILY [facility] Last Admin: 10/16/18 13:13 Dose: 20 mg Glucagon (Glucagon) 1 mg IM PRN PRN PRN Reason: Hypoglycemia Hydralazine HCl (Apresoline) 10 mg SLOW IVP Q4H PRN PRN Reason: BP > 220/110 Last Admin: 10/13/18 11:48 Dose: 10 mg Hydralazine HCl (Apresoline) 25 mg PO TID [facility] Last Admin: 10/16/18 13:13 Dose: 25 mg Hydralazine HCl (Apresoline) 10 mg SLOW IVP Q4H PRN PRN Reason: SBP Greater Than 180 Dextrose/Water (D5w) 1,000 mls @ 0 mls/hr IV .Q0M PRN PRN Reason: Hypoglycemia Insulin Human Lispro (Humalog) 0 units SC .MODERATE SLIDING SC PRN PRN Reason: Moderate Correctional Scale Last Admin: 10/15/18 10:58 Dose: 6 unit Insulin Human Lispro (Humalog) 0 units SC .BEDTIME SLIDING SC PRN PRN Reason: Bedtime Correctional Scale Labetalol HCl (Normodyne) 20 mg SLOW IVP Q1H PRN PRN Reason: BP > 220/110 Last Admin: 10/12/18 17:36 Dose: 20 mg Levetiracetam (Keppra) 250 mg PO BID [facility] Last Admin: 10/16/18 13:12 Dose: 250 mg Levothyroxine Sodium (Synthroid) 75 mcg PO 0600 [facility] Last Admin: 10/16/18 05:48 Dose: 75 mcg Lorazepam (Ativan) 2 mg SLOW IVP Q15MIN PRN PRN Reason: Seizures Losartan Potassium (Cozaar) 25 mg PO DAILY [facility] Nifedipine (Procardia Xl) 30 mg PO HS [facility] Last Admin: 10/15/18 21:23 Dose: 30 mg Nitroglycerin (Nitro-Bid 2% Ointment) 0.5 inch TOP Q8HR PRN PRN Reason: SBP Greater Than 180 Ondansetron HCl (Zofran) 4 mg IVP Q6H PRN PRN Reason: Nausea/Vomiting Polyethylene Glycol (Miralax) 17 gm PO HS [facility] Last Admin: 10/15/18 21:23 Dose: 17 gm Sodium Chloride (Flush - Normal Saline) 10 ml IVF PRN PRN PRN Reason: Saline Flush Last Admin: 10/12/18 21:10 Dose: 10 ml Tramadol HCl (Ultram) 50 mg PO Q6H PRN PRN Reason: Pain 4-6 Last Admin: 10/14/18 15:10 Dose: 50 mg
[2018-10-16] MEDS: HumaLOG 300 UNITS/3 ML VIAL SC PRN (16:49)
[2018-10-16] MEDS: Polyethylene Glycol 3350 17 GM Packet PO SCH (21:06)
[2018-10-16] MEDS: NIFEdipine XL 30 MG TAB PO SCH (21:06)
[2018-10-16] MEDS: Atorvastatin Calcium 10 MG TAB PO SCH (21:07)
[2018-10-17] MEDS: Levothyroxine Sodium 75 MCG TAB PO SCH (06:33)
--- NOTE | 2018-10-17 09:00 | PRG ---
DATE OF SERVICE: 10/17/2018 SUBJECTIVE: Mr. Dubois is a 78-year-old white male, who was initiated due for dialysis due to uremic signs and symptoms. He was initially admitted due to a new onset seizure. The feeling was that the seizure may be related to his underlying uremia. He is undergoing dialysis today. I am at the bedside supervising his dialysis. He is tolerating said treatment. OBJECTIVE: VITAL SIGNS: Blood pressure 133/61, heart rate 70, respiratory rate 16, temperature 97.2, and pulse ox 95%. GENERAL: Awake, alert, comfortable, not in distress. SKIN: Adequate turgor. HEENT: Pinkish conjunctivae. Anicteric sclerae. NECK: No neck mass. No carotid bruits. No JVD. CHEST: No deformities. LUNGS: Clear breath sounds. No wheezing. No crackles. HEART: Normal sinus rhythm. No murmurs, gallops, or rubs. ABDOMEN: Globular, soft, and nontender. No masses. EXTREMITIES: No edema. No deformities. MEDICATIONS: Medications of October 17, 2018, was reviewed. LABORATORY DATA: Laboratories of October 15, 2018, white count 2.3 and hemoglobin 11.5. Blood sugar 143. On October 15, 2018, BUN is 56 and creatinine 4.97. ASSESSMENT AND PLAN: 1. Chronic renal failure/end-stage renal disease, stable. Continuing current hemodialysis regimen. Tolerating said treatment. Fluid removal only as tolerated. My plan is to do a 3-hour hemodialysis 2 to 3 times a week. We are awaiting for Dr. Cho to place the peritoneal dialysis catheter. For the moment, I have consulted Case Management for outpatient hemodialysis placement. After the peritoneal dialysis catheter is placed next week, he will be converted to peritoneal dialysis. 2. New onset seizure - currently asymptomatic. Eventually, the Keppra will be weaned off. 3. Secondary hyperparathyroidism - the patient initiated on calcitriol 0.25 mcg tablet daily. 4. Hypertension, much improved. Continue current BP medications. Job ID: [id number]
--- NOTE | 2018-10-17 11:10 | PDOC.PN ---
- Subjective Encounter Start Date: 10/17/18 Encounter Start Time: 11:09 Subjective: doing better - Objective Resuscitation Status - Order Detail: 10/12/18 09:04 Resuscitation Status Routine Resuscitation Status: FULL: Full Resuscitation Discussed with: poa: Vital Signs & Weight: Vital Signs (12 hours) Temp Pulse Resp BP Pulse Ox 10/17/18 04:00 97.2 F L 70 16 133/61 95 10/17/18 00:00 98.3 F 68 16 149/69 H 96 Weight Admit Weight 246 lb 13.44 oz Weight 233 lb 11.2 oz Most Recent Monitor Data Heart Rate from ECG 64 NIBP 175/81 NIBP BP-Mean 112 Respiration from ECG 11 SpO2 98 I&O: 10/16/18 10/17/18 10/18/18 06:59 06:59 06:59 Intake Total 1200 Output Total Balance 1200 Result Diagrams: 10/15/18 14:55 10/15/18 14:55 Additional Labs: Accuchecks 10/17/18 10/16/18 10/16/18 05:24 20:34 16:39 POC Glucose 143 H 176 H 152 H Phys Exam - Physical Examination HEENT: PERRLA, moist MMs, sclera anicteric, TM's clear, oral pharynx no lesions , 2+ tonsils Neck: no nodes, no JVD, supple, full ROM Respiratory: no wheezing, no rales, no rhonchi Cardiovascular: RRR, no significant murmur, no rub Gastrointestinal: soft, non-tender, no distention, positive bowel sounds Musculoskeletal: edema present Dx/Plan (1) CHIRAG (acute kidney injury) Code(s): N17.9 - ACUTE KIDNEY FAILURE, UNSPECIFIED Status: Acute Comment: initiated on HD (2) CVA (cerebral vascular accident) Code(s): I63.9 - CEREBRAL INFARCTION, UNSPECIFIED Status: Acute Qualifiers: CVA mechanism: unspecified Qualified Code(s): I63.9 - Cerebral infarction, unspecified Comment: has chronic afib (3) Seizure Code(s): R56.9 - UNSPECIFIED CONVULSIONS Status: Acute Comment: no further seizures after the 2 he had on admission (4) CKD (chronic kidney disease) stage 5, GFR less than 15 ml/min Code(s): N18.5 - CHRONIC KIDNEY DISEASE, STAGE 5 Status: Chronic Comment: prior h/o nephrectomy on one side (5) H/O renal cell carcinoma Code(s): Z85.528 - PERSONAL HISTORY OF OTHER MALIGNANT NEOPLASM OF KIDNEY Status: Chronic Comment: on sunitinib (6) HTN (hypertension) Code(s): I10 - ESSENTIAL (PRIMARY) HYPERTENSION Status: Chronic Qualifiers: Hypertension type: essential hypertension Qualified Code(s): I10 - Essential (primary) hypertension (7) Acute encephalopathy Code(s): G93.40 - ENCEPHALOPATHY, UNSPECIFIED Status: Resolved Comment: likely due to seizure - Plan cont current plan of care, plan discussed w/ family, social services technician, DVT proph w/SCDs - Plan hemo/neurostable, PT to mobilize more as tolerated -: awaiting HD chair for dc plan -: pt and family donot want eliquis, are aware of risks of cva -: on keppra, to dc after 25 days on HD, seizures likely due to uremia -: is on asp, lipitor, coreg, clonidine, procardia and cozaar * .
[2018-10-17] MEDS: levETIRAcetam 500 MG TAB PO SCH ×2 (11:13→20:57)
[2018-10-17] MEDS: Losartan 25 MG TAB PO SCH (11:13)
[2018-10-17] MEDS: Calcitriol 0.25 MCG CAP PO SCH (11:13)
[2018-10-17] MEDS: Cyanocobalamin (Vitamin B-12) 1,000 MCG TAB PO SCH (11:14)
[2018-10-17] MEDS: Famotidine 20 MG TAB PO SCH (11:14)
[2018-10-17] MEDS: Aspirin Chewable 81 MG TAB PO SCH (11:14)
[2018-10-17] MEDS: hydrALAZINE 25 MG TAB PO SCH ×3 (11:14→20:57)
[2018-10-17] MEDS: Carvedilol 25 MG TAB PO SCH ×2 (11:14→20:58)
[2018-10-17] MEDS: HumaLOG 300 UNITS/3 ML VIAL SC PRN (17:31)
[2018-10-17] MEDS: Atorvastatin Calcium 10 MG TAB PO SCH (20:57)
[2018-10-17] MEDS: NIFEdipine XL 30 MG TAB PO SCH (20:58)
[2018-10-17] MEDS: Polyethylene Glycol 3350 17 GM Packet PO SCH (20:58)
[2018-10-18] MEDS: Levothyroxine Sodium 75 MCG TAB PO SCH (05:44)
[2018-10-18] MEDS: Aspirin Chewable 81 MG TAB PO SCH (09:37)
[2018-10-18] MEDS: Famotidine 20 MG TAB PO SCH (09:37)
[2018-10-18] MEDS: Cyanocobalamin (Vitamin B-12) 1,000 MCG TAB PO SCH (09:37)
[2018-10-18] MEDS: Calcitriol 0.25 MCG CAP PO SCH (09:37)
[2018-10-18] MEDS: Losartan 25 MG TAB PO SCH (09:37)
[2018-10-18] MEDS: Carvedilol 25 MG TAB PO SCH (09:37)
[2018-10-18] MEDS: hydrALAZINE 25 MG TAB PO SCH ×2 (09:37→14:48)
[2018-10-18] MEDS: levETIRAcetam 500 MG TAB PO SCH (09:38)
--- NOTE | 2018-10-18 09:45 | PRG ---
DATE OF SERVICE: 10/18/2018 SUBJECTIVE: Mr. Dubois is a 78-year-old white male with known history of renal cancer in remission, admitted for progressive azotemia and new onset seizure secondary to uremia. He has been initiated dialysis. He is doing well. He has received several days of dialysis. He has tolerated treatment. No new complaints. No chest pain or shortness of breath. OBJECTIVE: Blood pressure 146/68, heart rate 71, respiratory rate 16, temperature 97.4, pulse ox 97%. GENERAL: Noted to be awake, alert, comfortable, not in distress. SKIN: Adequate turgor. HEENT: Pinkish conjunctivae. Anicteric sclerae. No neck mass. No carotid bruits. No JVD. CHEST: No deformities. LUNGS: Clear breath sounds. No wheezing. No crackles. HEART: Normal sinus rhythm. No murmurs, gallops, or rubs. ABDOMEN: Globular, soft, nontender. No masses. EXTREMITIES: No edema. No deformities. NEUROLOGICAL: Moving all extremities. No tremors. No asterixis. No ataxia. MEDICATIONS: Medications of October 18, 2018, reviewed. LABORATORY DATA: Laboratories of October 15, 2018, white count 2.3, hemoglobin 11.5, blood sugar 143, BUN 56, creatinine 4.97. ASSESSMENT AND PLAN: 1. New onset seizure. No recurrent seizure on Keppra. This will be eventually weaned off. 2. Secondary hyperparathyroidism. Continue calcitriol 0.25 mcg tablet daily. 3. Hypertension, much improved with adjustment of blood pressure medications. 4. Chronic renal failure/end-stage renal disease, stable. We will continue 3 times a week hemodialysis. Fluid removal as tolerated. Awaiting outpatient dialysis placement. Please note, the patient will have a PD catheter placed next week by Dr. Cho. Job ID: [id number]
[2018-10-18 11:38] VITALS: BP 145/64; TEMP 98.9
[2018-10-18] MEDS: HumaLOG 300 UNITS/3 ML VIAL SC PRN (12:02)
[2018-10-18 12:47] VITALS: BMI 35.3
--- NOTE | 2018-10-19 15:24 | DIS ---
DATE OF ADMISSION: 10/12/2018 DATE OF DISCHARGE: 10/18/2018 ADMISSION DIAGNOSES: 1. Seizures x2. 2. Right frontal lobe mass. 3. History of renal cell carcinoma. 4. Chronic kidney disease with metabolic acidosis. DISCHARGE DIAGNOSES: 1. Seizures x2. 2. Right frontal lobe mass. 3. History of renal cell carcinoma. 4. Chronic kidney disease with metabolic acidosis. HISTORY OF PRESENTING ILLNESS: This is a 78-year-old gentleman with a remote history of renal cell carcinoma with possible mets in the frontal area of the brain, who presented to the ER with episodes of seizures. He was airlifted from [place] by EMS due to the diagnosis of stroke at that point of time. The patient had a repeat seizure-like activity in the ER and he was treated with Ativan. The patient was then admitted for further evaluation and treatment. The patient was treated for his new onset seizures with Keppra for which the patient responded very well. The patient also was started on hemodialysis for his CKD and increasingly elevating creatinine with metabolic acidosis. His secondary hypoparathyroidism was treated with calcitriol and hypertension improved with adjustment of his blood pressure medication. He also was previously diagnosed with atrial fibrillation, but since then he has been in sinus rhythm and family refused Eliquis. The patient was then discharged to SNF for continued rehabilitation and dialysis. The patient continued to take his home medication sunitinib for his history of renal cell carcinoma and his acute encephalopathy due to hyperuricemia and also seizure resolved as he was treated with Keppra with ongoing dialysis. The patient was then discharged as mentioned above. DISCHARGE INSTRUCTIONS: 1. Please follow up with Dr. Cohen, Dr. Gonzalez, your hydraulic pile hammer operator and primary care physician. 2. Dialysis per schedule. 3. Renal, heart healthy diet. 4. Activity as tolerated. 5. Please take medications as prescribed. Job ID: [id number]
--- NOTE | 2018-10-22 11:54 | EKG ---
Test Reason : Blood Pressure : / mmHG Vent. Rate : 059 BPM Atrial Rate : 059 BPM P-R Int : 244 ms QRS Dur : 080 ms QT Int : 430 ms P-R-T Axes : 106 -33 -35 degrees QTc Int : 425 ms Sinus bradycardia with 1st degree A-V block Left axis deviation Nonspecific T wave abnormality Abnormal ECG Confirmed by XOCHITL MELVIN DO ([id number]), commercial production editor ADRIAN VILLA ([id number]) on 10/22/2018 11:53:29 AM Referred By: Confirmed By:XOCHITL MELVIN DO
== END 2018-10-18 15:40 | DRG 100 ==
LOC: ERS 04:07 → ERHOLD 06:38 → IMCU/EMU 14:08 → 2SE 20:35
PROVIDERS: ADMIT Hospitalist; ATTEND Hospitalist
PROC: 5A1D70Z Performance of Urinary Filtration, Intermittent, Less than 6 Hours Per Day (ICD-10-PCS; principal; 2018-10-14)
PROC: 5A1D70Z Performance of Urinary Filtration, Intermittent, Less than 6 Hours Per Day (ICD-10-PCS; 2018-10-15)
PROC: 5A1D70Z Performance of Urinary Filtration, Intermittent, Less than 6 Hours Per Day (ICD-10-PCS; 2018-10-17)
PROC: 5A1D70Z Performance of Urinary Filtration, Intermittent, Less than 6 Hours Per Day (ICD-10-PCS; 2018-10-17)
DX: G40.89 Other seizures (principal); N18.6 End stage renal disease; I12.0 Hypertensive chronic kidney disease with stage 5 chronic kidney disease or end stage renal disease; E87.2 Acidosis; N25.81 Secondary hyperparathyroidism of renal origin; C78.00 Secondary malignant neoplasm of unspecified lung; N17.9 Acute kidney failure, unspecified; I42.9 Cardiomyopathy, unspecified; G93.49 Other encephalopathy; E11.22 Type 2 diabetes mellitus with diabetic chronic kidney disease; E03.9 Hypothyroidism, unspecified; E11.21 Type 2 diabetes mellitus with diabetic nephropathy; I25.10 Atherosclerotic heart disease of native coronary artery without angina pectoris; G93.9 Disorder of brain, unspecified; Z85.528 Personal history of other malignant neoplasm of kidney; Z87.891 Personal history of nicotine dependence; Z79.4 Long term (current) use of insulin; Z79.899 Other long term (current) drug therapy; Z90.5 Acquired absence of kidney
CPT/HCPCS: 36415; 36416; 70450; 70551; 80048; 80053; 80061; 80306; 82550; 82553; 83735; 83970; 84100; 84443; 84484; 85025; 85610; 85730; 86580; 86704; 86706; 86803; 87040; 87086; 87340; 90935; 93005; 93010; 93306; 93970; 95816; 95819; 96365; C1752; C1769; G0257; G0365; J0360; J1644; J1650; J1953; J2001; J2060; J2405; J2704; J3010; J7050; S0028

== ENCOUNTER 2018-10-28 12:03 | Day surgery (SDC) | payer MEDICARE, OTHER ==
[2018-10-27 17:46] VITALS: BMI 33.2
[2018-10-28] MEDS ORDERED: Glycopyrrolate 0.2 MG/ML 5 ML SYRINGE ONE (12:13)
[2018-10-28] MEDS ORDERED: ePHEDrine 50 MG/ML VIAL ONE (12:13)
[2018-10-28] MEDS ORDERED: PHENYLEPHRINE-NS 100 MCG/ML 10 ML SYRINGE ONE (12:13)
[2018-10-28] MEDS ORDERED: Dexamethasone 20 MG/5 ML VIAL ONE (12:13)
[2018-10-28] MEDS ORDERED: Ondansetron PF 4 MG/2 ML Vial ONE (12:13)
[2018-10-28] MEDS ORDERED: PROPOFOL 200 MG/20 ML VIAL ONE (12:13)
[2018-10-28] MEDS ORDERED: Lidocaine 1% PF 5 ML VIAL ONE (12:13)
[2018-10-28] MEDS ORDERED: Bupivacaine/Epinephrine 0.25% 30 ML VIAL ONE ×2 (14:20→14:44)
[2018-10-28] MEDS ORDERED: Heparin 10,000 UNITS/1 ML VIAL ONE (14:20)
[2018-10-28] MEDS ORDERED: Fentanyl 100 MCG/2 ML VIAL ONE (14:28)
[2018-10-28] MEDS ORDERED: Atracurium 100 MG/10 ML VIAL ONE (14:28)
[2018-10-28] MEDS ORDERED: Protamine Sulfate 50 MG/5 ML VIAL ONE (14:44)
[2018-10-28] MEDS ORDERED: Heparin 5,000 UNITS/ML VIAL ONE (14:44)
[2018-10-28] MEDS ORDERED: Ioversol 68 % 50 ML VIAL ONE (14:44)
[2018-10-28] MEDS ORDERED: Lidocaine 2% PF 5 ML VIAL ONE (14:44)
[2018-10-28] MEDS ORDERED: Phenylephrine HCL 10 MG/ML VIAL ONE (14:51)
[2018-10-28] MEDS ORDERED: Heparin 10,000 UNITS/ 10 ML VIAL ONE (17:15)
--- NOTE | 2018-10-28 19:13 | PDOC.OP ---
Operative Note - Operative Note Operative Note: PROCEDURE: Laparoscopic PD catheter placement DATE OF PROCEDURE: 10/28/2018 SURGEON: Freeman Cho M.D. PREOPERATIVE DIAGNOSES: End-stage renal failure POSTOPERATIVE DIAGNOSIS: End-stage renal failure HISTORY: Patient with end-stage renal failure. Laparoscopic peritoneal catheter placement was requested by nephrology. PROCEDURE IN DETAIL: After informed consent was obtained and appropriate preoperative antibiotics administered, the patient was taken to the operating room, placed in supine position and general endotracheal anesthesia was administered. The abdomen was prepped and draped in standard sterile fashion and local anesthesia was infused the skin and subcutaneous tissues in the right subcostal area. A transverse skin incision was made and the fascia was elevated. A Veress needle was placed into the abdominal cavity and carbon dioxide gas insufflated. Opening pressure was less than 5 and carbon dioxide gas easily insufflated to an intra-abdominal pressure 15 which the patient tolerated well. The Veress needle was withdrawn and a [place] port advanced under direct laparoscopic vision into the abdominal cavity which was carefully examined. There was no evidence of Veress needle or of trocar injury. There were minimal omental adhesions in the abdominal cavity which were taken down through the avascular plane. Local anesthesia was infused to the skin and subcutaneous tissues at the right lateral location and a trocar was placed at that location. The patient was placed in Trendelenburg and the small intestine easily was drawn up out of the pelvis. The patient was noted to have a deep sulcus adjacent to the rectum suitable for placement of the catheter and the omentum did not seem to reach down to the pelvis. The inferior edge of the posterior rectus sheath was identified and local anesthesia infused the skin and subcutaneous tissues overlying this location. An 8 mm trocar was tunneled superiorly medially and then down through the posterior rectus sheath near its inferior edge and the peritoneal dialysis catheter advanced through the trocar. The catheter was held in place with the inner cuff just inside the rectus sheath as the trocar was withdrawn. The end of the catheter was placed down into the rectal cul-de-sac and saline infused into the abdominal cavity. The catheter was placed to gravity and easily drained the fluid. The right upper quadrant trocar was then withdrawn and a 0 Vicryl suture on a GraNee needle used to close the fascial incision. The suture was placed but not tied down at this point. The trocar was then replaced at the right upper quadrant location and the lateral abdominal trocar withdrawn and the fascia closed at that location with a 0 Vicryl suture on a GraNee needle. This was secured and hemostasis verified. Carbon dioxide was allowed to desufflate through the right upper quadrant trocar which was then withdrawn and the previously placed suture secured. The skin incisions were then closed with 4-0 subcuticular Monocryl sutures and Dermabond placed. The peritoneal dialysis catheter was positioned with the external cuff in the subcutaneous tissues and the skin was snugged up around the peritoneal dialysis catheter exit site with 4-0 subcuticular Monocryl sutures and Dermabond placed there as well. Once the Dermabond was dry a gauze and Tegaderm dressing was placed to the external portion of the peritoneal dialysis catheter and the patient was extubated and taken to the recovery room in good condition. Estimated blood loss was minimal. There were no complications. There were no specimens.
== END 2018-10-28 17:45 | disposition home or self-care (01) ==
LOC: SDC 12:03
PROVIDERS: ATTEND Surgery
PROC: 0WHG43Z Insertion of Infusion Device into Peritoneal Cavity, Percutaneous Endoscopic Approach (ICD-10-PCS; principal; 2018-10-28)
DX: E10.22 Type 1 diabetes mellitus with diabetic chronic kidney disease (principal); N18.6 End stage renal disease; M10.9 Gout, unspecified; Z87.891 Personal history of nicotine dependence; Z79.82 Long term (current) use of aspirin; Z79.84 Long term (current) use of oral hypoglycemic drugs; Z79.899 Other long term (current) drug therapy; Z91.041 Radiographic dye allergy status; Z90.5 Acquired absence of kidney
CPT/HCPCS: J1644; J2001; J2370; J2720; J3010; Q9967

== ENCOUNTER 2018-11-22 08:27 | Outpatient (CLI) | payer MEDICARE, OTHER ==
--- NOTE | 2018-11-22 10:16 | CT ---
EXAM: CT chest without IV contrast CT abdomen without IV contrast PROVIDED CLINICAL HISTORY: Kidney cancer with pulmonary metastatic disease. COMPARISON: 07/25/2018. FINDINGS: There are tiny 2 to 3 mm pulmonary nodules again seen scattered within the left lung which are stable in size and appearance as well as number. Tiny pulmonary nodular also unchanged compared to the study on 05/11/2018. No new pulmonary nodule is seen on the left. There was mention of a pulmonary nodule in the anterior right upper lobe on prior exam. This area sales s not demonstrate a nodular appearance on the current study and is more linear in orientation and probably related to small focal area of scarring. However, there are groundglass densities seen withi n the right upper lobe which may be related to infectious or inflammatory process. No new noncalcified pulmonary nodule or mass is seen on the right. No pleural effusion is seen. A tunneled right internal jugular vein hemodialysis catheter is now noted in place which terminates i n the distal SVC. Vascular calcifications are seen in the coronary arteries. Previously noted pericardial effusion has decreased in size with only trace amount of pericardial flu id seen on today's exam. Lack of intravenous contrast limits evaluation of mediastinal structures, but no enlarged lymph nodes are appreciated by CT size criteria. Calcified mediastinal and hilar lymph nodes are again present. There is been interval development of a [id number] amount of intraperitoneal free fluid in the upper abdomen compared to prior study. Postsurgical changes related to cholecystectomy and left nephrectomy are again noted. Calcified granulomata are seen in the spleen. The right kidney demonstrates a peripheral nodular contour which may be related to lobulation. The liver, pancreas, and bilateral adrenal glands demonstrate a grossly normal nonenhanced CT appeara nce are stable from prior exam No enlarged lymph nodes are seen within the abdomen by CT size criteria. There is colonic diverticulosis. Degenerative changes are again seen throughout the spine greater involving the thoracic spine. There is a mild compression fracture involving the superior endplate of the T11 vertebral body which was not present on the recent study on 07/25/2018. There is now vacuum phenomenon also seen within the in tervertebral disc at the T10-11 level. There is a small 1.5 cm lytic lesion seen within the lateral left third rib which may represent small lytic metastatic lesion. There is also a subtle smaller lytic lesion seen within the anterior lateral right fourth rib. No additional lytic or sclerotic lesion is appreciated. IMPRESSION: 1. Stable scattered tiny pulmonary nodules on the left ranging from 2 to 3 mm which are unchanged in number or size compared to prior studies. No discrete pulmonary nodule is appreciated on the right, and no new pulmonary nodule is seen in the lungs bilaterally. 2. Previous studies suggested a pleural based nodular density in the right upper lobe which has a mor e linear configuration on today's exam and probably represents an area of scarring. Wedge-shaped parenchymal density in the right lower lobe adjacent to the major fissure on the prior study has also decreased in size with linear densities present which may be related to minimal linear scarring. 3. Interval development of groundglass densities in the right upper lobe which may be related to infe ctious or inflammatory process. 4. Interval development of a mild compression fracture of the superior endplate T11 vertebral body; t his is of indeterminate age. 5. Tiny lytic lesion within the left lateral third rib with subtle lytic lesion in the anterolateral right fourth rib which may represent tiny metastatic lesions. Lesion within the lateral left third rib was probably present on the prior study but is better visualized on today's exam. 6. Interval development of ascites. There has been interval decrease in pericardial effusion. 7. Left nephrectomy and cholecystectomy.
== END 2018-11-22 08:28 | disposition home or self-care (01) ==
LOC: CT 08:27
PROVIDERS: ATTEND Internal Medicine Medical Oncology
DX: C78.00 Secondary malignant neoplasm of unspecified lung (principal); C64.2 Malignant neoplasm of left kidney, except renal pelvis; N18.4 Chronic kidney disease, stage 4 (severe); D63.1 Anemia in chronic kidney disease; D63.8 Anemia in other chronic diseases classified elsewhere; R91.8 Other nonspecific abnormal finding of lung field
CPT/HCPCS: 71250; 74160

== ENCOUNTER 2018-12-09 09:02 | Outpatient (CLI) | payer MEDICARE, OTHER ==
--- NOTE | 2018-12-09 13:28 | NM ---
WHOLE BODY BONE SCAN: HISTORY: Malignant neoplasm of left kidney, extrarenal pelvis. RADIOPHARMACEUTICAL: 32.4 mCi Technetium 99m-MDP injected intravenously. CORRELATION: CT chest and abdomen of 11/22/2018. FINDINGS: Increased uptake in the sternoclavicular joints, shoulders, and feet consistent with degenerative celeste nges. Increased uptake in T11 vertebral body in a pattern consistent with compression fracture is seen. No other abnormal areas of tracer localization identified to suggest metastatic disease. Tracer excret ion is seen through the right kidney. The patient is post left nephrectomy. IMPRESSION: 1. No scintigraphic evidence of osseous metastatic disease. 2. Acute/subacute compression fracture of T11 vertebra. 3. Sensitivity of the bone scan is low for renal cell carcinoma and osteolytic metastasis. POS: OFF
== END 2018-12-09 09:03 | disposition home or self-care (01) ==
LOC: NM 09:02
PROVIDERS: ATTEND Internal Medicine Medical Oncology
DX: C64.2 Malignant neoplasm of left kidney, except renal pelvis (principal); C79.51 Secondary malignant neoplasm of bone; N18.4 Chronic kidney disease, stage 4 (severe); D63.1 Anemia in chronic kidney disease; S22.089A Unspecified fracture of T11-T12 vertebra, initial encounter for closed fracture
CPT/HCPCS: 78306; A9503

== ENCOUNTER 2018-12-16 12:50 | Outpatient (CLI) | payer MEDICARE, OTHER ==
--- NOTE | 2018-12-16 15:17 | MRI ---
MRI LUMBAR SPINE WITHOUT CONTRAST: INDICATIONS: Intervertebral disk disorder. Low back pain. COMPARISON: No comparison studies. TECHNIQUE: Multiplanar, multisequential imaging of the lumbar spine obtained. FINDINGS: The lumbar vertebrae maintain normal height and alignment and exhibit normal signal. There is eviden ce of mild anterior compression of the T11 vertebra, which is only partially imaged in the sagittal p gonzález. No significant disk abnormality is seen at T12-L1 or at L1-L2. At L2-L3, no significant disk bulge. Facet hypertrophy. No significant central canal stenosis. At L3-L4, mild disk bulge flattens the anterior thecal sac. Moderate facet hypertrophy. Mild centra l canal stenosis. There is mild bilateral foraminal stenosis, more prominent on the left due to asym metric disk bulge and facet hypertrophy. At L4-L5, broad-based disk protrusion flattens the thecal sac. Facet and ligamentous hypertrophy is more prominent. Mild central canal stenosis. Bilateral foraminal stenosis secondary to disk bulge a nd facet hypertrophy. Short pedicle distance also contributes. At L5-S1, slight posterolisthesis. Small focal disk protrusion flattens the anterior thecal sac. Pr ominent facet hypertrophy. Mild central canal stenosis. Bilateral foraminal stenosis. IMPRESSION: 1. Mild disk bulge seen at L3-L4, L4-L5, and L5-S1, with mild central canal and foraminal stenosis a t these levels, as described above. 2. Incidentally noted, only partially imaged on sagittal images, is evidence of mild wedge compressi on of the T11 vertebra. There appears to be mild edema long the superior endplate of this vertebra o n the STIR sequence, which could represent subacute compression injury. Correlation with bone scan of 12/09/2018 revealed activity at this T11 level, which was interpreted a s possible acute or subacute compression deformity, based on bone scan findings. POS: [facility]
== END 2018-12-16 12:51 | disposition home or self-care (01) ==
LOC: BICMRI 12:50
PROVIDERS: ATTEND Specialist
DX: M51.17 Intervertebral disc disorders with radiculopathy, lumbosacral region (principal); M51.16 Intervertebral disc disorders with radiculopathy, lumbar region; M48.061 Spinal stenosis, lumbar region without neurogenic claudication; M48.07 Spinal stenosis, lumbosacral region
CPT/HCPCS: 72148

== ENCOUNTER 2019-01-18 07:52 | Day surgery (SDC) | payer MEDICARE, OTHER ==
[2019-01-18 14:45] VITALS: BP 157/66; TEMP 97.6
== END 2019-01-18 15:14 | disposition home or self-care (01) ==
LOC: ONC/OP 07:52
PROVIDERS: ATTEND Internal Medicine Nephrology
PROC: 30233N1 Transfusion of Nonautologous Red Blood Cells into Peripheral Vein, Percutaneous Approach (ICD-10-PCS; principal; 2019-01-18)
DX: N18.9 Chronic kidney disease, unspecified (principal); D63.1 Anemia in chronic kidney disease
CPT/HCPCS: 36415; 36430; 86850; 86900; 86901; P9016

== ENCOUNTER 2019-03-02 08:56 | Outpatient (CLI) | payer MEDICARE, OTHER ==
--- NOTE | 2019-03-02 10:58 | CT ---
EXAM: CT chest and abdomen without IV contrast: HISTORY: Renal cancer with pulmonary metastatic disease. History of prior left nephrectomy. COMPARISON: 11/22/2018. FINDINGS: CT THORAX: Lungs: The previously seen groundglass densities within a right perihilar location and right upper lo be have resolved. There is a new area of groundglass density measuring 10 mm in the left lung apex. There are tiny less than 4 mm pulmonary nodule seen in the lateral aspect of the left upper lobe and posterolateral left lower lobe which are stable. There has been slight interval enlargement of a pulmonary nodule in the left lower lobe previously measuring 4 mm which now measures approximately 6 mm. A less than 4 mm pleural-based nodular density is seen in the anterior aspect of the right upper lobe. No new discrete pulmonary nodule or mass is seen. Pleura: No pleural effusion. Lymph nodes: Lack of intravenous contrast does limit sensitivity for evaluation of the mediastinal st ructures, but no definite enlarged lymph nodes are seen. Calcified right hilar and mediastinal lymph nodes are again present. Mediastinum: Contrast is seen in the esophagus which could be related to gastroesophageal reflux. Vas cular calcifications are seen in the coronary arteries. There is a trace pericardial effusion versus pericardial thickening. Chest wall: Mild gynecomastia is present on the right which is a stable finding. The tunneled right i nternal jugular vein hemodialysis catheter has been removed. CT ABDOMEN: Liver: Within normal limits for nonenhanced appearance. Gallbladder: Postcholecystectomy changes are again seen.\ Pancreas: Within normal limits for nonenhanced CT appearance. Spleen:Calcified granulomata are seen with a small 1.3 cm hypodense lesion again seen in the superior pole of the spleen unchanged compared to prior study in 2018. This is difficult to further characterize. Adrenal glands: Within normal limits for nonenhanced CT appearance. Kidneys: There is evidence of left nephrectomy. Right kidney again demonstrates a lobulated appearanc e. There is no hydronephrosis. Bowel: Normal in caliber. Adenopathy:No lymphadenopathy within the abdomen or pelvis. Peritoneum: Previously noted free intraperitoneal free fluid has resolved compared to prior exam. The re is partial visualization of a peritoneal dialysis catheter within the subcutaneous soft tissues right abdomen incompletely imaged or evaluated. There are scattered punctate of free intraperitoneal gas within the abdomen probably due to peritoneal dialysis catheter. Abdominal wall: No abnormalities seen. Osseous structures: Tiny lytic lesions within the left anterolateral third rib and in the anterior ri ght fourth rib are again seen and unchanged. No additional lytic or sclerotic osseous lesions are appreciated. Mild compression fracture involving the superior endplate T11 vertebral body is again se en and unchanged. IMPRESSION: 1. Slight interval enlargement of a left lower lobe pulmonary nodule previously measuring 4 mm and no w measures 6 mm. A few additional pulmonary nodules are seen within the left lower lobe and left upper lobe measuring 2 to 3 mm and unchanged. 2. Stable subtle lytic lesions within the left third and right fourth ribs. 3. Postsurgical changes related to left nephrectomy 4. Additional findings are as described above.
== END 2019-03-02 08:57 | disposition home or self-care (01) ==
LOC: CT 08:56
PROVIDERS: ATTEND Internal Medicine Medical Oncology
DX: C64.2 Malignant neoplasm of left kidney, except renal pelvis (principal); C78.00 Secondary malignant neoplasm of unspecified lung; M89.9 Disorder of bone, unspecified; Z98.890 Other specified postprocedural states
CPT/HCPCS: 71250; 74150

== ENCOUNTER 2019-03-10 09:17 | Day surgery (SDC) | payer MEDICARE, OTHER ==
[2019-03-10] MEDS ORDERED: Sodium Chloride 0.9% 20 ML ONE (09:42)
[2019-03-10] MEDS: Acetaminophen 500 MG TAB PO SCH ×2 (10:33→10:40)
[2019-03-10] MEDS: diphenhydrAMINE 25 MG CAP PO SCH ×2 (10:33→10:40)
[2019-03-10 15:53] VITALS: BP 152/67; TEMP 97.6
== END 2019-03-10 15:53 | disposition home or self-care (01) ==
LOC: ONC/OP 09:17
PROVIDERS: ATTEND Internal Medicine Medical Oncology
PROC: 30233N1 Transfusion of Nonautologous Red Blood Cells into Peripheral Vein, Percutaneous Approach (ICD-10-PCS; principal; 2019-03-10)
DX: D64.9 Anemia, unspecified (principal); D69.6 Thrombocytopenia, unspecified; Z91.041 Radiographic dye allergy status
CPT/HCPCS: 36430; 86850; 86900; 86901; P9016; Q0163

== ENCOUNTER 2019-03-20 10:29 | Outpatient (CLI) | payer MEDICARE, OTHER ==
--- NOTE | 2019-03-20 12:02 | RAD ---
PA AND LATERAL CHEST: HISTORY: Cough. COMPARISON: 12/22/2012 FINDINGS: The heart size is borderline. The lungs are well expanded without lobar consolidation, pneumothorace s, samir pulmonary edema, or pleural effusions. There are degenerative changes in the spine. IMPRESSION: No acute process. POS: [facility]
== END 2019-03-20 10:30 | disposition home or self-care (01) ==
LOC: BICRAD 10:29
PROVIDERS: ATTEND Family Medicine
DX: R05 Cough (principal)
CPT/HCPCS: 71046

== ENCOUNTER 2019-03-24 12:31 | Day surgery (SDC) | payer MEDICARE, OTHER ==
[2019-03-24 13:12] VITALS: BMI 39.1
[2019-03-24 20:23] VITALS: BP 163/81; TEMP 99.4
== END 2019-03-24 20:42 | disposition home or self-care (01) ==
LOC: SDC 12:31 → 2SW 12:45 → SDC 20:42
PROVIDERS: ATTEND Internal Medicine Nephrology
DX: C65.9 Malignant neoplasm of unspecified renal pelvis (principal)
CPT/HCPCS: 36430; 86850; 86900; 86901; 86920; P9016; 36415

== ENCOUNTER 2019-06-17 06:57 | Emergency (ER) | payer MEDICARE, OTHER ==
[2019-06-17] MEDS ORDERED: Ondansetron ODT 4 MG TAB ONE (07:01)
[2019-06-17 07:45] LABS: ALT (SGPT) 13 U/L (8-55); AST (SGOT) 14 U/L (5-34); Albumin 3.2 g/dL (3.4-4.8); Alkaline Phosphatase 94 U/L (40-110); Anion Gap 17 mmol/L (10-20); BUN (Urea Nitrogen) 45 mg/dL (8.4-25.7); Bilirubin, Total 0.3 mg/dL (0.2-1.2); Calc. Creatinine Clearance 0 mL/min (70-130); Calcium 8.8 mg/dL (7.8-10.44); Carbon Dioxide 27 mmol/L (23-31); Chloride 97 mmol/L (98-107); Estimated GFR-MDRD 7; Globulin 2.7 g/dL (2.4-3.5); Glucose 179 mg/dL (83-110); Potassium 4.5 mmol/L (3.5-5.1); Protein, Total 5.9 g/dL (5.8-8.1); Sodium 136 mmol/L (136-145)
--- NOTE | 2019-06-17 07:50 | RAD ---
EXAM: Portable chest PROVIDED CLINICAL HISTORY: Seizure COMPARISON: None FINDINGS: Cardiac and mediastinal silhouette is within normal limits. No focal consolidation, pleural fluid or pneumothorax evident. IMPRESSION: No evidence for an acute cardiopulmonary process.
[2019-06-17 07:55] LABS: #Eosinphils 0.1 thou/uL (0.0-0.7); #Lymphocytes 0.7 thou/uL (1.20-3.40); #Monocytes 0.2 thou/uL (0.11-0.59); #Neutrophils 3.7 thou/uL (1.40-6.50); %Basophils 0.1 % (0.0-1.0); %Eosinophils 1.8 % (0.0-10.0); %Lymphocytes 14.3 % (21.0-51.0); %Monocytes 3.7 % (0.0-10.0); %Neutrophils 80.1 % (42.0-75.0); Hemoglobin 11.9 g/dL (14.0-18.0); MDiff Complete? YES; Macrocytosis SLIGHT = 6-15 cells (100X) (0-5/hpf); Mean Corpuscular HGB CONC 33.4 g/dL (32.0-36.0); Mean Corpuscular Hemoglobin 36.3 pg (27.0-31.0); Mean Platelet Volume 7.5 fL (7.4-10.4); Platelet Count 157 thou/uL (130-400); Polychromasia SLIGHT = 2-3 cells (100X) (0-2/hpf); RBC Distribution Width 16.4 % (11.5-14.5); Red Blood Cell (RBC) Count 3.29 mill/uL (4.70-6.10); White Blood Cell (WBC) Count 4.6 thou/uL (4.8-10.8)
--- NOTE | 2019-06-17 08:28 | CT ---
EXAM: CT Brain WO Con PROVIDED CLINICAL HISTORY: Seizure COMPARISON: 10/12/2018 FINDINGS: The ventricular system appears normal in size and morphology. There is no evidence for intracranial h emorrhage or mass effect. Opacification of the majority of the right-sided mastoid air cells. Opacification of the nasal cavity. Partial opacification of ethmoid air cells. Extracranial soft tiss ues and osseous structures appear otherwise unremarkable. IMPRESSION: 1. No evidence for intracranial hemorrhage or mass effect. 2. Mastoid and sinonasal opacification as described.
--- NOTE | 2019-06-17 08:30 | CT ---
EXAM: CT cervical spine PROVIDED CLINICAL HISTORY: Fall status post seizure COMPARISON: None FINDINGS: No evidence for fracture or traumatic subluxation. No prevertebral soft tissue swelling apparent. Vi sualized lung apices appear clear. Cervical degenerative changes are seen. IMPRESSION: No evidence for fracture or traumatic subluxation.
== END 2019-06-17 09:30 | disposition home or self-care (01) ==
LOC: ERS 06:57
DX: R56.9 Unspecified convulsions (principal); E11.9 Type 2 diabetes mellitus without complications; I10 Essential (primary) hypertension; E78.00 Pure hypercholesterolemia, unspecified; E03.9 Hypothyroidism, unspecified; I48.91 Unspecified atrial fibrillation; Z79.899 Other long term (current) drug therapy; Z79.4 Long term (current) use of insulin
CPT/HCPCS: 36416; 70450; 71045; 72125; 80053; 83605; 84146; 84484; 85025; 93005; Q0162

== ENCOUNTER 2019-07-03 14:26 | Outpatient (CLI) | payer MEDICARE, OTHER ==
--- NOTE | 2019-07-03 16:04 | CT ---
NONCONTRAST CT CHEST AND ABDOMEN: HISTORY: Malignant neoplasm left kidney. Followup evaluation. COMPARISON: 03/02/2019. FINDINGS: Calcified right hilar lymph nodes are noted. Lack of intravenous contrast does limit evaluation of t he vascular structures. Minimal vascular calcifications are seen in the thoracic aorta with a greate r degree of vascular calcifications seen in the coronary arteries. No enlarged lymph nodes are seen by CT size criteria. A 6 mm pulmonary nodule was seen in the left lower lobe. The previously obtained measurement is appr oximately 4 mm. The additional irregular nodularity density is seen in the left lower lobe on the pr ior study is not visualized on today's exam. There is also a stable tiny less than 3 mm pulmonary no dule at the posterolateral aspect left lower lobe. A punctate nodular density is seen along the supe rior aspect of the major fissure on the left which may actually represent a calcification. The ground-glass density seen within the left upper lobe on the prior exam has resolved. A tiny pleu ral-based nodular density in the anterior aspect right upper lobe is not definitely visualized on thi s exam which may be related to slide selection and very small size on prior exam. A linear area of s carring in the anterior right upper lobe is again seen. No definite new discrete pulmonary nodule or mass is visualized in the lungs bilaterally. There are findings suggestive of gynecomastia on the right. No pleural effusion is identified. Postcholecystectomy changes are seen. Multiple calcified granulomata are again seen in the spleen. Lack of intravenous contrast does limit sensitivity for evaluation of the parenchymal organs. Howeve r, the liver, pancreas, bilateral adrenal glands, and right kidney demonstrate a grossly normal nonen hanced CT appearance. Postsurgical changes related to left nephrectomy are again noted. No enlarged lymph nodes are seen in the abdomen on this nonenhanced CT exam. A small amount of intraperitoneal free fluid is seen adjacent to the liver and spleen which is slight ly increased from prior exam. Punctate foci of gas is seen in the upper abdomen. Again, there is par tial visualization of a peritoneal dialysis catheter within the subcutaneous soft tissues which may b e the etiology for the small amount of fluid within the abdomen. Slight heterogeneity of the left 3rd rib is again present as well as stable slight heterogeneity of t he right 4th rib. No new lytic or sclerotic osseous lesions are appreciated. Degenerative changes a re again seen in the thoracic as well as the lumbar spine. IMPRESSION: 1. Left lower lobe pulmonary nodule measuring approximately 6 mm with a previous measurement of 4 mm . There was an additional nodular density seen in the left lower lobe on the prior exam as well as a ground-glass nodular density in the left lung apex each of which have resolved. 2. Stable postsurgical changes related to left nephrectomy as well as cholecystectomy. 3. Previously suggested areas of heterogeneity involving the left 3rd and right 4th ribs is again se en and similar to prior exam. No new lytic or splenic osseous lesions are identified. 4. Stable mild compression fracture of the T11 vertebral body. 5. Tiny amount of intraperitoneal free fluid with punctate foci of gas seen in the upper abdomen. S imilar findings were present on the prior study; although, the degree of free fluid is slightly incre ased from that exam. These findings are likely related to peritoneal dialysis catheter. POS: OFF
== END 2019-07-03 14:27 | disposition home or self-care (01) ==
LOC: SCSCT 14:26
PROVIDERS: ATTEND Internal Medicine Medical Oncology
DX: C64.2 Malignant neoplasm of left kidney, except renal pelvis (principal); N18.4 Chronic kidney disease, stage 4 (severe); D63.1 Anemia in chronic kidney disease; R91.1 Solitary pulmonary nodule; J98.4 Other disorders of lung; S22.089A Unspecified fracture of T11-T12 vertebra, initial encounter for closed fracture; Z90.5 Acquired absence of kidney; Z90.49 Acquired absence of other specified parts of digestive tract
CPT/HCPCS: 71250; 74150

== ENCOUNTER 2019-10-23 10:24 | Outpatient (CLI) | payer MEDICARE, OTHER ==
--- NOTE | 2019-10-23 11:15 | CT ---
CT chest without contrast CT abdomen without contrast HISTORY: Renal carcinoma with lung metastases COMPARISON: 07/03/2019 FINDINGS: Absence of oral and IV contrast reduces the sensitivity of the exam particularly for the evaluation o f mediastinal, hilar, vascular structures and solid organs and bowel. There are calcified right hilar lymph nodes. Gynecomastia is again seen. Tiny pericardial effusion ve rsus pericardial thickening is noted. No pleural effusions are seen. Tiny lung nodules are stable measuring up to 6 mm in the left lower lobe. No new lung nodules are identified. Scarring in the ling romana is again noted. The patient is status post cholecystectomy and left nephrectomy. A small amount of free air and small amount of free fluid is seen in the abdomen. Multiple calcified splenic granulomas are again seen. The noncontrasted appearance of the liver, pancreas, adrenal glands and right kidney appear unchanged . There are vascular calcifications without evidence of aneurysmal dilatation of the thoracoabdominal a pedrito. There are degenerative changes in the thoracolumbar spine. No osteolytic or osteoblastic lesions are seen. IMPRESSION: Small amount of free air and free fluid in the abdomen, new since the last exam. Discussed over the telephone with Dr. Hayden at 11:06 AM.
== END 2019-10-23 10:25 | disposition home or self-care (01) ==
LOC: BICCT 10:24
PROVIDERS: ATTEND Internal Medicine Medical Oncology
DX: C78.00 Secondary malignant neoplasm of unspecified lung (principal); C64.9 Malignant neoplasm of unspecified kidney, except renal pelvis
CPT/HCPCS: 71250; 74150

== ENCOUNTER 2020-02-19 12:20 | Outpatient (CLI) | payer MEDICARE, OTHER ==
--- NOTE | 2020-02-19 13:14 | CT ---
Exam: Chest CT without contrast Abdomen CT without contrast HISTORY: Malignant neoplasm the left kidney. Patient undergoes peritoneal dialysis COMPARISON: 10/23/2019, 07/03/2019 FINDINGS: Chest CT: Mediastinum: Limited evaluation by the lack of IV contrast. No mass, lymphadenopathy or hematoma. Heart: No significant pericardial fluid Atherosclerosis: Coronary artery disease. Aorta: Minimal atherosclerosis. No dilatation Lower neck and axilla: No masses or lymphadenopathy Trachea and central bronchi: Patent Right lung: No mass, consolidation or suspicious nodules Left lung: No mass, consolidation or suspicious nodules. 0.3 cm solid nodule in the left lower lobe, and a 0.6 cm solid nodule in the left lower lobe. Both nodules are unchanged since June 2019. Stable pleural-based nodule along the left major fissure measuring 0.3 cm. Stable 0.3 cm nodule in th e left upper lobe. Abdomen CT: Surgically absent gallbladder Limited evaluation of the solid organs by the lack of IV contrast. Grossly no solid organ abnormality . Mesentery: No mass, lymphadenopathy or fluid. Punctate foci of air compatible with patient's history of peritoneal dialysis. Kidneys: Left nephrectomy changes. With regard to the right kidney, no evidence of obstructive uropat hy. Alimentary canal: Limited evaluation. No bowel obstruction. Osseous structures: Stable degenerative change. Stable loss of vertebral body heights in the distal t horacic spine at approximately T11 level. Stable heterogeneity involving the left ribs. IMPRESSION: 1. Stable solid nodules in the left lung. No suspicious masses. 2. Left nephrectomy changes.
== END 2020-02-19 12:21 | disposition home or self-care (01) ==
LOC: BICCT 12:20
PROVIDERS: ATTEND Internal Medicine Medical Oncology
DX: C64.2 Malignant neoplasm of left kidney, except renal pelvis (principal); C78.00 Secondary malignant neoplasm of unspecified lung; R91.8 Other nonspecific abnormal finding of lung field; Z90.5 Acquired absence of kidney
CPT/HCPCS: 71250; 74150

== ENCOUNTER 2020-02-23 12:06 | Observation (INO) | payer MEDICARE, OTHER ==
[2020-02-23 13:20] LABS: #Lymphocytes 0.9 thou/uL (1.20-3.40); #Monocytes 0.2 thou/uL (0.11-0.59); #Neutrophils 3.7 thou/uL (1.40-6.50); %Basophils 0.8 % (0.0-1.0); %Eosinophils 0.8 % (0.0-10.0); %Lymphocytes 18.6 % (21.0-51.0); %Monocytes 4.9 % (0.0-10.0); %Neutrophils 74.9 % (42.0-75.0); Hemoglobin 11.4 g/dL (14.0-18.0); Mean Corpuscular HGB CONC 32.8 g/dL (32.0-36.0); RBC Distribution Width 17.1 % (11.5-14.5); Red Blood Cell (RBC) Count 3.16 mill/uL (4.70-6.10); White Blood Cell (WBC) Count 4.9 thou/uL (4.8-10.8)
[2020-02-23 13:47] LABS: ALT (SGPT) 10 U/L (8-55); AST (SGOT) 14 U/L (5-34); Albumin 3.3 g/dL (3.4-4.8); Alkaline Phosphatase 68 U/L (40-110); Anion Gap 17 mmol/L (10-20); BUN (Urea Nitrogen) 47 mg/dL (8.4-25.7); Bilirubin, Total 0.5 mg/dL (0.2-1.2); Calc. Creatinine Clearance 0 mL/min (70-130); Calcium 8.6 mg/dL (7.8-10.44); Carbon Dioxide 23 mmol/L (23-31); Chloride 97 mmol/L (98-107); Estimated GFR-MDRD 5; Globulin 2.2 g/dL (2.4-3.5); Glucose 140 mg/dL (83-110); Potassium 3.6 mmol/L (3.5-5.1); Protein, Total 5.5 g/dL (5.8-8.1); Sodium 133 mmol/L (136-145)
[2020-02-23 13:50] LABS: Anisocytosis SLIGHT = 6-15 cells (100X) (0-5/hpf); Hypochromia SLIGHT = 6-15 cells (100X) (0-5/hpf); MDiff Complete? YES; Macrocytosis MODERATE=16-30 cells (100X) (0-5/hpf); Mean Platelet Volume 8.2 fL (7.4-10.4); Ovalocytes SLIGHT = 2-5 cells (100X) (0-1/hpf); Platelet Count 103 thou/uL (130-400); Platelet Morphology Comment Appears Decreased; Polychromasia SLIGHT = 2-3 cells (100X) (0-2/hpf)
--- NOTE | 2020-02-23 13:59 | CT ---
EXAM: CT brain without contrast HISTORY: Seizure. Patient has renal cancer COMPARISON: 06/17/2019 TECHNIQUE: Multiple contiguous axial images were obtained and a CT of the brain without contrast. FINDINGS: There are scattered hypodensities in the subcortical and periventricular white matter consi stent with small vessel ischemic disease. There is no evidence of hydrocephalus, intracranial hemorrhage, or extra-axial fluid collection. The calvarium and overlying soft tissues are unremarkable. The patient may have had prior sinus surge ry. Fluid is seen in the bilateral mastoid air cells.. IMPRESSION: No evidence of acute intracranial abnormality
[2020-02-23] MEDS ORDERED: Lacosamide 50 mg Tablet PO SCH ×3 (15:15→21:00)
--- NOTE | 2020-02-23 16:08 | MRI ---
MRI BRAIN WITHOUT CONTRAST: HISTORY: Seizure COMPARISON: 10/12/2018 CORRELATION: CT scan from 02/23/2020. FINDINGS: No restricted diffusion is seen. There are multiple foci of T2 prolongation in the periventricular wh ite matter, consistent with chronic small vessel ischemic disease. The ventricular size is appropriate and the basilar cisterns are patent. No evidence of acute infarct, hemorrhage, midline shift or abnormal extra-axial fluid collections is seen. There is mucosal disease in the paranasal sinuses. IMPRESSION: No evidence of acute intracranial process.
[2020-02-23] MEDS ORDERED: Bisacodyl 10 MG SUPP PR PRN (16:17)
[2020-02-23] MEDS ORDERED: Calcium Carbonate 500 MG ChewTAB PO PRN (16:17)
[2020-02-23] MEDS ORDERED: Ondansetron ODT 4 MG TAB PO PRN (16:17)
[2020-02-23] MEDS ORDERED: Acetaminophen 325 MG TAB PO PRN (16:17)
[2020-02-23] MEDS ORDERED: Ondansetron PF 4 MG/2 ML Vial IVP PRN (16:17)
--- NOTE | 2020-02-23 16:30 | CON ---
DATE OF CONSULTATION: HISTORY OF PRESENT ILLNESS: Mr. Dubois is a 79-year-old white male, who was admitted for new-onset seizure. According to the , the patient last night developed a seizure, which spontaneously resolved. No soft consciousness was noted. He declined to go to the ER at that time. Early this morning, he again developed another seizure episode, hence the admission. We are being consulted for management of his ESRD as well as peritoneal dialysis. His Kt/V has been falling and we have been adjusting his PD regimen. He has declined to use a 3 L fill volume at the present time. REVIEW OF SYSTEMS: Positive for seizure. No shortness of breath. Positive for a chronic hiccups. Positive for abdominal discomfort, occasional nausea, but no vomiting. No PD fluid changes noted. No hematochezia. No melena. No hematemesis. No dysuria. No headache. No diplopia. Positive for joint pains. HOME MEDICATIONS: Include the followin. Levetiracetam 250 mg p.o. b.i.d. 2. Hydralazine 25 mg p.o. b.i.d. 3. Clonidine-TTS two patch q.7 days. 4. Simvastatin 20 mg at bedtime. 5. Sutent 25 mg p.o. daily. 6. MiraLAX one capsule at bedtime. 7. Nifedipine 30 mg at bedtime. 8. Losartan 25 mg daily. 9. Victoza 1.2 mL subcu at bedtime. 10. Levothyroxine 75 mcg daily. 11. Lantus 20 units subcu b.i.d. 12. Gabapentin 100 mg p.o. b.i.d. 13. Vitamin B12 of 1000 mcg p.o. daily. 14. Vitamin D 1000 international units daily. 15. Carvedilol 25 mg p.o. b.i.d. 16. Calcitriol 0.25 mcg daily. 17. Aspirin 81 mg daily. 18. Baclofen one tab b.i.d. PAST MEDICAL HISTORY: 1. ESRD from diabetic nephropathy. 2. Type 2 diabetes mellitus. 3. 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 4. Hypertension. 5. Hyperlipidemia. 6. Secondary hyperparathyroidism. 7. Neuropathy. 8. Seizure disorder. 9. History of atrial fibrillation. 10. Hypothyroidism. PAST SURGICAL HISTORY: 1. Status post left nephrectomy. 2. Status post PD catheter placement. 3. Status post left nephrectomy. 4. Status post hemorrhoidectomy. 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 He lives in [place]. Education, some college courses. No IV drug abuse. Currently not smoking. No alcohol intake. Sedentary lifestyle. ALLERGIES: IODINE. TRAUMA: None. IMMUNIZATIONS: Up-to-date. HOSPITALIZATIONS: Please see past medical history. FAMILY HISTORY: No family history of ESRD. PHYSICAL EXAMINATION: VITAL SIGNS: Blood pressure is noted at 140/70, heart rate 70. GENERAL: The patient is noted to be awake, lethargic, not in distress. SKIN: Adequate turgor. HEENT: He has pinkish conjunctivae. Anicteric sclerae. NECK: No neck mass. No carotid bruits. No JVD. CHEST: No deformities. LUNGS: Clear breath sounds. No wheezing. No crackles. HEART: Normal sinus rhythm. No murmur. No gallops. No rubs. ABDOMEN: Globular, soft, and nontender. No masses. Positive for PD catheter. EXTREMITIES: No edema. No deformities. NEUROLOGICAL: The patient is awake, but lethargic and somewhat sleepy. Moving all extremities. No tremors. No asterixis. IMAGING DATA: CT scan of the brain, no acute intracranial abnormality. CT scan of the chest done on February 19, 2020, nodules on the left are as noted to be stable. LABORATORY DATA: Laboratories of February 23, 2020; white count 4.9, hemoglobin 11.4. Sodium 133, potassium 3.6, chloride 97, carbon dioxide 23, BUN 97, creatinine 9.4, glucose 140, calcium 8.6, and albumin 3.3. ASSESSMENT AND PLAN: 1. Seizure disorder - recurrent seizure. The patient's Keppra may need to be adjusted upwards and/or addition of another antiseizure medication. Neurology has been consulted. Recommendation for an MRI of the brain was made. 2. Left renal cancer with metastasis to the left lung - stable. Oncology is following. Currently, on Sutent. 3. End-stage renal disease from diabetic nephropathy. We will continue current CCPD regimen. My plan is to do a 10-hour peritoneal dialysis with alternating 2.5 and 1.5 PD solution. We will use a 2.5 L fill volume as per the patient's request. Please note, he is not adequately dialyzed with the current dialysis regimen. He may eventually need to be converted to hemodialysis. Thank you for the consult. We will continue to follow. Job ID: [id number]
[2020-02-23 17:23] LABS: Troponin I 0.084 ng/mL (< 0.028)
--- NOTE | 2020-02-23 18:22 | PDOC.HHP ---
Hospitalist HPI - History of Present Illness Seizure History of Present Illness: 79-year-old male with renal cancer, ESRD on PD and seizure disorder presents with a generalized seizure at 3 AM and 10:30 AM which was 10 hours and 2 hours ago respectively. History obtained from the patient's . Tongue biting reported. No incontinence. Pt became confused and somnolent after the above episodes. No incontinence reported. No fever/chills/CP/syncope/facial droop or any other focal deficits. Was on Keppra in the past that was dced 6 months ago. Hospitalist ROS - Review of Systems Respiratory: denies: cough, dry, shortness of breath, hemoptysis, SOB with excertion, pleuritic pain, sputum, wheezing, other Cardiovascular: denies: chest pain, palpitations, orthopnea, paroxysmal noc. dyspnea, edema, light headedness, other Gastrointestinal: denies: nausea, vomiting, abdominal pain, diarrhea, constipation, melena, hematochezia, other Genitourinary: denies: dysuria, frequency, incontinence, hematuria, retention, other All other systems reviewed; all pertinent +/- noted in HPI/Subj - Medication Medications: Active Medications Generic Name Dose Route Start Last Admin Trade Name Freq PRN Reason Stop Dose Admin Lacosamide 200 mg 02/23/20 17:45 02/23/20 17:56 Vimpat PO 02/23/20 19:45 200 mg NOW [facility] Hospitalist History - Past Medical History Other Medical History: Past Medical History L sided kidney CA primary with mets to lungs. Diagnosed in 2011. Started Chemo 11/2012 after lung mets found. T2DM - Dr Cristobal. HTN. Seasonal Allergies. PT WITH ONLY SINGLE KIDNEY. ESRD - started PD 10/2018. 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 Blood transfusion x 2. P Dialysis. Surgical History Tonsils Gallbladder Removal 2005 PD Cath Placement - Dr Cho 10/28/2018 Family History Father: , diagnosed with Heart Disease, Stroke Mother: alive, Diabetes Social History Non-Smoker. . DPOA - spouse/Full code Allergies Iodine: hives - Allergy Home meds: NovoLog Flexpen(Insulin Aspart) 100 UNIT/ML Solution Pen-injector as directed Subcutaneous up to 10 units for mealtime correction per sliding scale Sildenafil Citrate 50 MG Tablet 1 tablet as needed Orally Once a day Lantus(Insulin Glargine) 100 UNIT/ML Solution 25 units Subcutaneous twice a day , Notes: notes sliding scale Vitamin D 3 Vitamin B 12 Sutent(SUNItinib Malate) 25 MG Capsule 1 capsule Orally Once a day for 28 days off Citrucel(Methylcellulose (Laxative)) NIFEdipine ER 30 MG Tablet Extended Release 24 Hour 1 tablet on an empty stomach Orally Once a day Carvedilol 25 MG Tablet 1 tablet Orally twice a day Mometasone Furoate 0.1 % Solution 1 application Externally twice a day Baclofen 5 mg Tablet 1/2 Orally twice a day, Notes: prn Epogen(Epoetin Rolando) unknown Solution as directed Injection weekly Potassium Chloride Karlie ER 20 MEQ Tablet Extended Release TAKE 1 TABLET BY MOUTH EVERY DAY - Exam General Appearance: NAD, awake alert Eye: PERRL, anicteric sclera ENT: normocephalic atraumatic, no oropharyngeal lesions, moist mucosa Neck: supple, symmetric, no JVD, no thyromegaly, no lymphadenopathy Heart: RRR, no gallops, no rubs, normal peripheral pulses Respiratory: no wheezes, no rales, no ronchi, normal chest expansion Gastrointestinal: soft, non-tender, normal bowel sounds, no guarding, no rigidity Gastrointestinal - other findings: peritoneal dialysis catheter Extremities: no cyanosis, no clubbing Neurological: cranial nerve grossly intact, normal sensation to touch, no weakness, no new deficit Musculoskeletal: normal tone, normal strength, no muscle wasting Psychiatric: normal affect, A&O x 3 Hospitalist Results - Labs Result Diagrams: 02/23/20 13:12 02/23/20 13:12 Lab results: WBC 4.9 thou/uL (4.8-10.8) 02/23/20 13:12 Hgb 11.4 g/dL (14.0-18.0) L 02/23/20 13:12 Hct 34.8 % (42.0-52.0) L 02/23/20 13:12 MCV 110.0 fL (78.0-98.0) H 02/23/20 13:12 Plt Count 103 thou/uL (130-400) L 02/23/20 13:12 Neutrophils % 74.9 % (42.0-75.0) 02/23/20 13:12 Sodium 133 mmol/L (136-145) L 02/23/20 13:12 Potassium 3.6 mmol/L (3.5-5.1) 02/23/20 13:12 Chloride 97 mmol/L (98-107) L 02/23/20 13:12 Carbon Dioxide 23 mmol/L (23-31) 02/23/20 13:12 BUN 47 mg/dL (8.4-25.7) H 02/23/20 13:12 Creatinine 9.40 mg/dL (0.7-1.3) H 02/23/20 13:12 Glucose 140 mg/dL (83-110) H 02/23/20 13:12 Calcium 8.6 mg/dL (7.8-10.44) 02/23/20 13:12 Total Bilirubin 0.5 mg/dL (0.2-1.2) 02/23/20 13:12 AST 14 U/L (5-34) 02/23/20 13:12 ALT 10 U/L (8-55) 02/23/20 13:12 Alkaline Phosphatase 68 U/L (40-110) 02/23/20 13:12 Troponin I 0.084 ng/mL (< 0.028) H 02/23/20 13:12 Serum Total Protein 5.5 g/dL (5.8-8.1) L 02/23/20 13:12 Albumin 3.3 g/dL (3.4-4.8) L 02/23/20 13:12 Additional comment: Laboratory Tests 02/23/20 13:12 Prolactin 38.65 H - EKG Interpretation EKG: SR - reviewed by me - Radiology Interpretation MRI - head Status: image reviewed by me Additional Comment: MRI BRAIN WITHOUT CONTRAST: HISTORY: Seizure COMPARISON: 10/12/2018 CORRELATION: CT scan from 02/23/2020. FINDINGS: No restricted diffusion is seen. There are multiple foci of T2 prolongation in the periventricular wh ite matter, consistent with chronic small vessel ischemic disease. The ventricular size is appropriate and the basilar cisterns are patent. No evidence of acute infarct, hemorrhage, midline shift or abnormal extra-axial fluid collections is seen. There is mucosal disease in the paranasal sinuses. IMPRESSION: No evidence of acute intracranial process. CT scan - head Status: image reviewed by me Additional Comment: EXAM: CT brain without contrast HISTORY: Seizure. Patient has renal cancer COMPARISON: 06/17/2019 TECHNIQUE: Multiple contiguous axial images were obtained and a CT of the brain without contrast. FINDINGS: There are scattered hypodensities in the subcortical and periventricular white matter consi stent with small vessel ischemic disease. There is no evidence of hydrocephalus , intracranial hemorrhage, or extra-axial fluid collection. The calvarium and overlying soft tissues are unremarkable. The patient may have had prior sinus surge ry. Fluid is seen in the bilateral mastoid air cells.. IMPRESSION: No evidence of acute intracranial abnormality Hospitalist H&P A/P - Plan Plan: Breakthrough Seizure Type 2 diabetes mellitus with diabetic nephropathy Renal cancer HTN ESRD on PD Anemia secondary to renal failure Macrocytic anemia Hypothyroidism h/o seizure disorder Chronic thrombocytopenia h/o Hiccups on PRN Baclofen Physical deconditioning PLAN: Case d/w oncall Neuro - Dr Shepard. She recommended MRI and starting Vimpat with overnight monitoring Seizure precautions EEG as outpt MRI brain - negative Restart Clonidine, Coreg and Procardia XL with holding parameters Add sliding scale Restart home meds once confirmed Nephro consult for PD No Heparin due to thrombocytopenia Cont other meds as above
[2020-02-23] MEDS ORDERED: Dextrose 50% Abboject 50 ML SYRINGE SLOW IVP PRN (18:32)
[2020-02-23] MEDS ORDERED: Dextrose 5% in Water 1,000 ML IV PRN (18:32)
[2020-02-23] MEDS ORDERED: Insulin Regular 300 UNITS/3 ML VIAL SC PRN ×2 (18:32)
[2020-02-23] MEDS ORDERED: NIFEdipine XL 30 MG TAB PO PRN (18:39)
[2020-02-23] MEDS ORDERED: hydrALAZINE 20 MG/ML VIAL SLOW IVP PRN (18:39)
[2020-02-23 19:19] LABS: Troponin I 0.089 ng/mL (< 0.028)
[2020-02-23] MEDS: cloNIDine 0.1 MG TAB PO SCH (20:25)
[2020-02-23] MEDS: Folic Acid 1 MG TAB PO SCH (20:27)
[2020-02-24] MEDS ORDERED: Levothyroxine Sodium 75 MCG TAB PO SCH (06:00)
[2020-02-24] MEDS ORDERED: Carvedilol 6.25 MG TAB PO SCH (08:00)
[2020-02-24 08:01] VITALS: TEMP 98
[2020-02-24] MEDS ORDERED: NIFEdipine XL 30 MG TAB PO SCH (09:00)
[2020-02-24] MEDS ORDERED: Lacosamide 50 mg Tablet PO SCH (09:00)
[2020-02-24] MEDS ORDERED: Famotidine 20 MG TAB PO SCH (09:00)
[2020-02-24] MEDS: Folic Acid 1 MG TAB PO SCH (09:42)
[2020-02-24] MEDS: cloNIDine 0.1 MG TAB PO SCH (09:43)
--- NOTE | 2020-02-24 11:01 | PRG ---
DATE OF SERVICE: 02/24/2020 SUBJECTIVE: Mr. Dubois is a 79-year-old white male who was initially admitted for recurrent seizure. CAT scan of the brain was essentially negative. We are following up this patient for management of his ESRD. He underwent peritoneal dialysis last night without any difficulty. This morning, he feels better. He denies any chest pain, nausea, vomiting. OBJECTIVE: VITAL SIGNS: Blood pressure 113/64, heart rate 58, respiratory rate 16, temperature 98, O2 saturation 97% on room air. GENERAL: Noted to be awake, alert, comfortable, not in distress. SKIN: Adequate turgor. HEENT: He has pinkish conjunctivae. Anicteric sclerae. No neck mass. No carotid bruits. No JVD. CHEST: No deformities. LUNGS: Clear breath sounds. HEART: Normal sinus rhythm. No murmur. No gallops. No rubs. ABDOMEN: Globular, soft, nontender. No masses. EXTREMITIES: No edema. No deformities. The patient has a PD catheter. MEDICATIONS: Medications of February 24, 2020, reviewed. LABORATORY DATA: Laboratories of February 23, 2020, white count 4.9, hemoglobin 11.4. Sodium 133, potassium 3.6, chloride 97, carbon dioxide 23, BUN 47, creatinine 9.4. LFTs normal. Albumin 3.3. Vitamin B12 greater than 2000. ASSESSMENT AND PLAN: 1. Recurrent seizure disorder. CAT scan of the brain was negative. The patient has been started on another antiseizure medication and is currently on Vimpat at 100 mg p.o. b.i.d. 2. Hypertension, stable. Continue current antihypertensive regimen. 3. End-stage renal disease, stable. We will continue current peritoneal dialysis. Per request of the patient, we decreased the fill volume to 2.5 L solution. Job ID: [id number]
--- NOTE | 2020-02-24 11:07 | DIS ---
DATE OF ADMISSION: 02/23/2020 DATE OF DISCHARGE: 02/24/2020 DISCHARGE DISPOSITION: Home. FOLLOWUP: 1. Follow up with primary care physician, Dr. Marcos Mason in 1 week. 2. Follow up with Neurology, Dr. Austin in 1 to 2 weeks. Outpatient EEG is recommended. The patient was seen and examined on the day of discharge. He denies any new complaints. No chest pain, shortness of breath, palpitations reported. DISCHARGE MEDICATIONS: 1. Folic acid 1 mg daily. 2. Vimpat 100 mg b.i.d. 3. All other home medications were left unchanged. BRIEF HOSPITAL COURSE: The patient is a 79-year-old male with end-stage renal disease, on peritoneal dialysis, seizure disorder, and renal cancer, presented to the hospital with seizure. This seizure happened at 3 a.m. and 10:30 a.m. This seizure lasted for approximately 2 minutes. He also had tongue biting. They were generalized tonic colonic type. He also had transient confusion which has resolved. There was no other focal neurologic deficit reported. He was on Keppra in the past that was discontinued approximately six months ago. Please refer to the history and physical for further details. The patient was admitted to the hospital with a diagnosis of breakthrough seizure. He underwent a CT scan of the brain that was negative for acute findings. MRI of the brain without contrast was negative for acute intracranial process. I discussed the case with Neurology, Dr. Shepard and Dr. Austin. Dr. Shepard recommended starting Vimpat. He received 1 dose of Vimpat 200 mg yesterday. He has been started on 100 mg twice daily. He understands the side effects of Vimpat. He was also found to have low folic acid for which folic acid supplementation was started. He was also evaluated by Nephrology for peritoneal dialysis maintenance. SIGNIFICANT LABS: Folic acid level was 6.8. Prolactin was 38.6. Vitamin B12 was greater than 2000. Sodium was 133. Hemoglobin 11.4 with MCV of 110, MCH of 36, platelet of 103. FINAL DIAGNOSES: 1. Breakthrough seizures. 2. Type 2 diabetes mellitus with diabetic nephropathy. 3. End-stage renal disease, on peritoneal dialysis. 4. Hypertension. 5. History of renal cancer. 6. Chronic hiccups, followed by Dr. Bello. 7. Physical deconditioning. 8. Chronic thrombocytopenia. 9. History of seizure disorder. 10. Hypothyroidism. 11. Macrocytic anemia. 12. Hyponatremia. 13. Iodine allergy. 14. Folic acid deficiency. 15. The patient understands the above plan of care. Job ID: [id number]
[2020-02-24 11:46] VITALS: BP 124/73
== END 2020-02-24 14:25 | disposition home or self-care (01) ==
LOC: ERS 12:06 → SURG B 16:53
PROVIDERS: ADMIT Internal Medicine; ATTEND Internal Medicine
DX: G40.409 Other generalized epilepsy and epileptic syndromes, not intractable, without status epilepticus (principal); E11.21 Type 2 diabetes mellitus with diabetic nephropathy; E11.22 Type 2 diabetes mellitus with diabetic chronic kidney disease; N18.6 End stage renal disease; D63.1 Anemia in chronic kidney disease; I10 Essential (primary) hypertension; C64.2 Malignant neoplasm of left kidney, except renal pelvis; C78.02 Secondary malignant neoplasm of left lung; D69.6 Thrombocytopenia, unspecified; E03.9 Hypothyroidism, unspecified; E87.1 Hypo-osmolality and hyponatremia; E53.8 Deficiency of other specified B group vitamins; J30.2 Other seasonal allergic rhinitis; N25.81 Secondary hyperparathyroidism of renal origin; I48.91 Unspecified atrial fibrillation; Z79.4 Long term (current) use of insulin; Z79.82 Long term (current) use of aspirin; Z79.899 Other long term (current) drug therapy; Z91.041 Radiographic dye allergy status; Z90.5 Acquired absence of kidney; Z99.2 Dependence on renal dialysis
CPT/HCPCS: 36415; 36416; 70450; 70551; 80053; 82607; 82746; 84146; 84484; 85025; 90945; G0257; G0378

== ENCOUNTER 2020-03-08 12:36 | Outpatient (CLI) | payer MEDICARE, OTHER ==
--- NOTE | 2020-03-08 14:53 | EEG ---
DATE OF SERVICE: 03/08/2020 ATTENDING PHYSICIAN: Coral Shepard MD This EEG was performed using 24-channel bitmovintek video digital EEG machine with 24-disk electrodes. This was a routine EEG recording. BACKGROUND: The posterior background rhythm is 9 hertz. The background rhythm attenuates with eye opening and enhances with eye closure. HYPERVENTILATION: Not performed. PHOTIC STIMULATION: Bioccipital symmetric driving responses observed. SLEEP: Drowsiness and sleep are observed. EEG DIAGNOSIS: Normal awake, drowsy, and sleep EEG. Job ID: [id number]
== END 2020-03-08 12:37 | disposition home or self-care (01) ==
LOC: EEG 12:36
PROVIDERS: ATTEND Family Medicine
DX: G40.909 Epilepsy, unspecified, not intractable, without status epilepticus (principal)
CPT/HCPCS: 95816

== ENCOUNTER 2020-07-10 11:15 | Outpatient (CLI) | payer MEDICARE, OTHER ==
--- NOTE | 2020-07-10 12:02 | CT ---
CHEST CT WITHOUT CONTRAST: HISTORY: Evaluate pulmonary nodules. Renal cancer. Lung neoplasm. COMPARISON: 11/22/2018, 05/11/2018, 02/19/2020. FINDINGS: Mediastinum: Limited evaluation by the lack of IV contrast. No mediastinal mass, lymphadenopathy or h ematoma. Heart: Normal heart size. No significant pericardial fluid. Coronary arteries: There is scattered atherosclerosis. Trachea and central bronchi: Patent. Subdiaphragmatic structures: There is evidence of pneumoperitoneum and a small amount of ascites. The re does appear to be a catheter in the anterior right subcutaneous fat, incompletely evaluated. Correlate for peritoneal dialysis. Grossly no solid organ abnormality. Osseous structures: No lytic or blastic lesions within the osseous structures. Pleural spaces: No pleural effusion. Right lung: No suspicious masses or nodules. Left lung: No suspicious masses or nodules in the upper lobe. There are 2 separate 0.3 cm solid nodu les in the lateral aspect of the superior segment of the left lower lobe. Nodules are not appreciated on any of the previous examinations. There is a stable 0.2 cm solid nodule in the left lo wer lobe. Nodule is unchanged since 11/26/2018. There is a 0.7 cm solid nodule in the left lower lobe, previously measuring 0.6 cm. In May 2018, this nodule was 0.3 cm. In November of 2018, this no dule was also 0.3 cm. This nodule has increased in size since November of 2018. IMPRESSION: 1. Enlarging nodule in the left lower lobe, currently measuring 0.7 cm. Nodule has increased since 2018. The maximum dimension is just within the imaging threshold criteria for PET imaging. Lesion is not amenable to percutaneous biopsy. Six-month follow-up CT is recommended. 2. There are 2 new solid nodules in the left lower lobe (axial image 37, series 3). These nodules are too small to further evaluate and can be followed up in 6 months as well. 3. Pneumoperitoneum. Correlate for peritoneal dialysis. Findings conveyed to Dr. Gonzalez via [facility] 07/10/2020 at 12:01 PM Code CR Transcribed Date/Time: 07/10/2020 12:22 PM
== END 2020-07-10 11:16 | disposition home or self-care (01) ==
LOC: BICCT 11:15
PROVIDERS: ATTEND Internal Medicine Medical Oncology
DX: C64.2 Malignant neoplasm of left kidney, except renal pelvis (principal); C78.00 Secondary malignant neoplasm of unspecified lung; R91.8 Other nonspecific abnormal finding of lung field
CPT/HCPCS: 71250; 74150

== ENCOUNTER 2020-09-17 11:20 | Outpatient (CLI) | payer MEDICARE, OTHER ==
--- NOTE | 2020-09-17 12:14 | CT ---
CT CHEST WITHOUT CONTRAST CLINICAL INDICATION: Malignant neoplasm of the left kidney with metastatic lung disease. Follow-up evaluation. COMPARISON: 02/19/2020 and 07/10/2020 FINDINGS: Aorta: Vascular calcifications are seen at the aortic arch. Thoracic aorta is normal in caliber. Lungs: Tiny approximately 4 mm pulmonary nodule in the right lung apex previously measured approximat rob 3 mm on study on 02/24/2020. Few linear densities in a subpleural location are seen in the anterolateral right upper lobe probably due to areas of mild scarring. No additional pulmonary nodule or mass is seen on the right. Oval-shaped pulmonary nodule in the left lower lobe is again seen which measures 8 mm x 5 mm. This no dule measured 6 mm x 3 mm on study of 02/19/2020 and 7 mm x 5 mm on study of 07/10/2020. Additional closely adjacent nodule abuts this nodule which measures 6 mm x 4 mm with previous measurement of 6 m m x 3 mm on study 07/10/2020. This nodule was not well appreciated on study of 02/19/2020. There is a closely adjacent subpleural 4 mm pulmonary nodule also seen on study of 07/10/2020 but not visualized on study of 02/19/2020. A smaller 2-3 mm pulmonary nodule is seen just inferior to this location in a subpleural location which is unchanged in size or appearance. No additional pulmonary nodule or mas s is appreciated on the left. Mediastinum: Calcified right hilar lymph nodes are present related to prior granulomatous disease. Va scular calcifications are seen in the coronary arteries with calcification at the periphery of the left atrium again present. Thyroid gland: Grossly normal nonenhanced CT appearance. Osseous structures: Degenerative changes are again seen in the thoracic as well as lumbar spine. Mild height loss superior endplate T11 vertebral body is again seen and unchanged. Chest wall: Suggestion of mild gynecomastia bilaterally. Upper abdomen: Again noted is evidence of pneumoperitoneum with trace free fluid adjacent to the live r and spleen similar to prior exam. These finding may be related to peritoneal dialysis, and correlation is recommended. There is partial visualization of a catheter right lower pelvis incomplet rob imaged or evaluated. Postoperative changes related to left nephrectomy are seen. Colonic diverticulosis is present with small amount retained fecal material in the colon. IMPRESSION: 1. Slight enlargement of left lower lobe pulmonary nodules in addition to stable subpleural pulmonary nodules left lower lobe and stable right apical pulmonary nodule. These nodules remain too small to percutaneously sample or evaluated with PET CT scan. Continued follow-up recommended. 2. Pneumoperitoneum and trace ascites likely related to peritoneal dialysis. Clinical correlation rec ommended. 3. Evidence of left nephrectomy.
== END 2020-09-17 11:21 | disposition home or self-care (01) ==
LOC: BICCT 11:20
PROVIDERS: ATTEND Internal Medicine Medical Oncology
DX: C64.2 Malignant neoplasm of left kidney, except renal pelvis (principal); C78.00 Secondary malignant neoplasm of unspecified lung; N18.4 Chronic kidney disease, stage 4 (severe); D63.8 Anemia in other chronic diseases classified elsewhere; R91.8 Other nonspecific abnormal finding of lung field; Z90.5 Acquired absence of kidney
CPT/HCPCS: 71250; 74150

== ENCOUNTER 2021-10-06 20:29 | Inpatient (IN) | payer MEDICARE, OTHER ==
[2021-10-06] MEDS ORDERED: Ondansetron PF 4 MG/2 ML Vial ONE (21:28)
[2021-10-06] MEDS ORDERED: Morphine 4 MG/ML VIAL ONE (21:28)
[2021-10-06] MEDS ORDERED: hydrALAZINE 20 MG/ML VIAL SLOW IVP PRN (21:52)
[2021-10-06] MEDS ORDERED: traMADol HCl 50 MG TAB PO PRN (21:52)
[2021-10-06] MEDS ORDERED: Dextrose 5% in Water 1,000 ML IV PRN (21:55)
[2021-10-06] MEDS ORDERED: Ondansetron PF 4 MG/2 ML Vial IVP PRN (21:55)
[2021-10-06] MEDS ORDERED: Dextrose 50% Abboject 50 ML SYRINGE SLOW IVP PRN (21:55)
[2021-10-06] MEDS ORDERED: Insulin Regular 300 UNITS/3 ML VIAL SC PRN (21:55)
[2021-10-06] MEDS ORDERED: HYDROcodone/Acetaminophen 10/325 mg Tablet ONE (22:22)
[2021-10-06 23:11] LABS: Hemoglobin 10.9 g/dL (14.0-18.0); Mean Corpuscular HGB CONC 33.5 g/dL (32.0-36.0); Mean Corpuscular Hemoglobin 38.2 pg (27.0-31.0); Mean Platelet Volume 7.2 fL (7.4-10.4); Platelet Count 212 thou/uL (130-400); RBC Distribution Width 12.4 % (11.5-14.5); Red Blood Cell (RBC) Count 2.86 mill/uL (4.70-6.10); White Blood Cell (WBC) Count 9.9 thou/uL (4.8-10.8)
[2021-10-06 23:17] LABS: Prothrombin Time 13.2 sec (12.0-14.7)
[2021-10-06 23:18] LABS: PTT 23.9 sec (22.9-36.1)
[2021-10-06 23:23] LABS: #Eosinphils 0.2 thou/uL (0.0-0.7); #Lymphocytes 1.4 thou/uL (1.20-3.40); #Monocytes 0.6 thou/uL (0.11-0.59); #Neutrophils 7.8 thou/uL (1.40-6.50); %Basophils 0.3 % (0.0-1.0); %Eosinophils 1.6 % (0.0-10.0); %Lymphocytes 13.9 % (21.0-51.0); %Monocytes 6.2 % (0.0-10.0); %Neutrophils 78.1 % (42.0-75.0)
[2021-10-06 23:24] LABS: MDiff Complete? YES; Macrocytosis SLIGHT = 6-15 cells (100X) (0-5/hpf)
[2021-10-06 23:29] LABS: ALT (SGPT) 108 U/L (8-55); AST (SGOT) 118 U/L (5-34); Albumin 3.2 g/dL (3.4-4.8); Alkaline Phosphatase 121 U/L (40-110); Anion Gap 18 mmol/L (10-20); BUN (Urea Nitrogen) 59 mg/dL (8.4-25.7); Bilirubin, Total 0.6 mg/dL (0.2-1.2); Calc. Creatinine Clearance 0 mL/min (70-130); Calcium 8.9 mg/dL (7.8-10.44); Carbon Dioxide 24 mmol/L (23-31); Chloride 96 mmol/L (98-107); Globulin 2.1 g/dL (2.4-3.5); Glucose 146 mg/dL (83-110); Lipase 22 U/L (8-78); Potassium 4.6 mmol/L (3.5-5.1); Protein, Total 5.3 g/dL (5.8-8.1); Sodium 133 mmol/L (136-145)
[2021-10-06 23:31] LABS: Anion Gap 18 mmol/L (10-20); BUN (Urea Nitrogen) 59 mg/dL (8.4-25.7); Calc. Creatinine Clearance 0 mL/min (70-130); Calcium 9.5 mg/dL (7.8-10.44); Carbon Dioxide 23 mmol/L (23-31); Chloride 96 mmol/L (98-107); Glucose 144 mg/dL (83-110); Phosphorus 3.7 mg/dL (2.3-4.7); Potassium 4.4 mmol/L (3.5-5.1); Sodium 133 mmol/L (136-145)
[2021-10-06] MEDS: Morphine 4 MG/ML VIAL SLOW IVP PRN (23:51)
[2021-10-06] MEDS ORDERED: Sodium Chloride 0.9% 1,000 ML IV SCH (23:59)
[2021-10-07] MEDS: traMADol HCl 50 MG TAB PO SCH ×3 (01:11→23:34)
[2021-10-07] MEDS: Acetaminophen 500 MG TAB PO SCH ×5 (01:12→23:32)
[2021-10-07 01:56] VITALS: BMI 37.0
[2021-10-07 02:42] LABS: SARS-CoV-2 NAA Rapid Test Not Detected (NotDetected)
[2021-10-07] MEDS: Cyclobenzaprine 10 MG TAB PO PRN (05:12)
[2021-10-07 05:58] LABS: #Eosinphils 0.2 thou/uL (0.0-0.7); #Lymphocytes 1.2 thou/uL (1.20-3.40); #Monocytes 0.4 thou/uL (0.11-0.59); #Neutrophils 2.9 thou/uL (1.40-6.50); %Basophils 0.4 % (0.0-1.0); %Eosinophils 4.1 % (0.0-10.0); %Monocytes 8.8 % (0.0-10.0); %Neutrophils 61.7 % (42.0-75.0); Hemoglobin 10.3 g/dL (14.0-18.0); Mean Corpuscular HGB CONC 32.9 g/dL (32.0-36.0); Mean Corpuscular Hemoglobin 37.7 pg (27.0-31.0); Mean Platelet Volume 7.2 fL (7.4-10.4); Platelet Count 191 thou/uL (130-400); RBC Distribution Width 12.4 % (11.5-14.5); Red Blood Cell (RBC) Count 2.73 mill/uL (4.70-6.10); White Blood Cell (WBC) Count 4.8 thou/uL (4.8-10.8)
[2021-10-07 06:37] LABS: Magnesium 2.1 mg/dL (1.6-2.6); Phosphorus 4.8 mg/dL (2.3-4.7)
[2021-10-07] MEDS ORDERED: CEFAZOLIN 2 GM, IV Admixture Fee-Chemo 1 UNITS in Sodium Chloride 0.9% 100 ML IVPB SCH (07:15)
[2021-10-07] MEDS: Polyethylene Glycol 3350 17 GM Packet PO SCH (09:07)
[2021-10-07] MEDS: Senokot S 8.6-50 MG TAB PO SCH ×2 (09:07→21:02)
[2021-10-07] MEDS: Famotidine 20 MG TAB PO SCH (09:11)
[2021-10-07] MEDS ORDERED: EPOETIN ALFA-EPBX (ESRD) 4,000 UNIT/ML VIAL SC SCH (09:30)
[2021-10-07 11:22] LABS: HBSAg Index 0.24 S/CO (0-0.99); Hep B Surf Ag Non-Reactive S/CO (NonReactive)
[2021-10-07 11:31] LABS: HBSAB Concentration 18.45 mIU/mL; Hep B Surf AB Reactive (NonReactive)
[2021-10-07] MEDS: diphenhydrAMINE 25 MG CAP PO PRN (12:59)
[2021-10-07] MEDS: Morphine 4 MG/ML VIAL SLOW IVP PRN (13:00)
[2021-10-07] MEDS ORDERED: Midazolam HCl 2 mg/2 ml Vial ONE (16:23)
[2021-10-07] MEDS ORDERED: Fentanyl 250 MCG/5 ML VIAL ONE ×2 (16:55→19:47)
[2021-10-07] MEDS ORDERED: Lidocaine 1% PF 5 ML VIAL ONE (17:06)
[2021-10-07] MEDS ORDERED: Dexamethasone 20 MG/5 ML VIAL ONE (17:06)
[2021-10-07] MEDS ORDERED: PHENYLEPHRINE-NS 100 MCG/ML 10 ML SYRINGE ONE (17:06)
[2021-10-07] MEDS ORDERED: Rocuronium Bromide 10 MG/ML (10ML VIAL) ONE (17:06)
[2021-10-07] MEDS ORDERED: Ondansetron PF 4 MG/2 ML Vial ONE (17:06)
[2021-10-07] MEDS ORDERED: Glycopyrrolate 0.2 MG/ML 5 ML SYRINGE ONE (17:06)
[2021-10-07] MEDS ORDERED: PROPOFOL 200 MG/20 ML VIAL ONE (17:06)
[2021-10-07] MEDS ORDERED: Promethazine HCl 25 MG/ML VIAL IM PRN (19:00)
[2021-10-07] MEDS ORDERED: Ondansetron HCl/PF 4 MG/2 ML Vial IVP PRN (19:00)
[2021-10-07] MEDS ORDERED: Promethazine HCl 25 MG/ML VIAL IVPB PRN (19:00)
[2021-10-07] MEDS ORDERED: traMADol HCl 50 MG TAB ONE (19:25)
[2021-10-07] MEDS ORDERED: Fentanyl 100 MCG/2 ML VIAL SLOW IVP PRN (19:47)
[2021-10-07] MEDS ORDERED: levETIRAcetam 500 MG TAB PO SCH ×2 (21:00)
[2021-10-07] MEDS: levETIRAcetam 500 MG TAB PO SCH (21:02)
[2021-10-07] MEDS: CEFAZOLIN 2 GM, Admixture Fee 1 EACH in Sodium Chloride 0.9% 100 ML IVPB SCH (23:33)
[2021-10-08 05:03] LABS: #Lymphocytes 0.5 thou/uL (1.20-3.40); #Monocytes 0.2 thou/uL (0.11-0.59); %Eosinophils 0.3 % (0.0-10.0); %Lymphocytes 6.4 % (21.0-51.0); %Monocytes 3.1 % (0.0-10.0); %Neutrophils 90.3 % (42.0-75.0); Hemoglobin 10.9 g/dL (14.0-18.0); Mean Corpuscular Hemoglobin 38.1 pg (27.0-31.0); Mean Platelet Volume 7.9 fL (7.4-10.4); Platelet Count 193 thou/uL (130-400); RBC Distribution Width 12.4 % (11.5-14.5); Red Blood Cell (RBC) Count 2.87 mill/uL (4.70-6.10); White Blood Cell (WBC) Count 7.7 thou/uL (4.8-10.8)
[2021-10-08] MEDS: Acetaminophen 500 MG TAB PO SCH ×4 (05:05→23:09)
[2021-10-08] MEDS: Cyclobenzaprine 10 MG TAB PO PRN (05:06)
[2021-10-08] MEDS: diphenhydrAMINE 25 MG CAP PO PRN (05:06)
[2021-10-08] MEDS: Levothyroxine Sodium 75 MCG TAB PO SCH (05:06)
[2021-10-08 05:17] LABS: Anion Gap 21 mmol/L (10-20); BUN (Urea Nitrogen) 62 mg/dL (8.4-25.7); Calc. Creatinine Clearance 10 mL/min (70-130); Calcium 8.8 mg/dL (7.8-10.44); Carbon Dioxide 21 mmol/L (23-31); Chloride 92 mmol/L (98-107); Glucose 294 mg/dL (83-110); Phosphorus 6.4 mg/dL (2.3-4.7); Potassium 5.2 mmol/L (3.5-5.1); Sodium 129 mmol/L (136-145)
[2021-10-08] MEDS: Insulin Regular 300 UNITS/3 ML VIAL SC PRN ×2 (06:15→13:09)
[2021-10-08] MEDS ORDERED: levETIRAcetam 500 MG TAB PO SCH (09:00)
[2021-10-08] MEDS: levETIRAcetam 500 MG TAB PO SCH ×2 (09:57→20:09)
[2021-10-08] MEDS: Senokot S 8.6-50 MG TAB PO SCH ×2 (09:57→20:09)
[2021-10-08] MEDS: Polyethylene Glycol 3350 17 GM Packet PO SCH ×2 (09:57→10:06)
[2021-10-08] MEDS: Heparin 5,000 UNITS/ML VIAL SC SCH ×2 (10:01→20:11)
[2021-10-08] MEDS: Famotidine 20 MG TAB PO SCH (10:01)
[2021-10-08] MEDS: Lantus 1000 UNITS/10 ML VIAL SC SCH ×2 (10:02→21:43)
[2021-10-08] MEDS: CEFAZOLIN 2 GM, Admixture Fee 1 EACH in Sodium Chloride 0.9% 100 ML IVPB SCH (10:52)
[2021-10-08] MEDS: traMADol HCl 50 MG TAB PO SCH ×2 (11:52→23:10)
[2021-10-08] MEDS: Sevelamer Carbonate 800 MG TAB PO SCH ×2 (12:55→17:58)
[2021-10-08] MEDS: CEFAZOLIN 1 GM in Sodium Chloride 0.9% 100 ML IVPB SCH (23:09)
[2021-10-09] MEDS: Levothyroxine Sodium 75 MCG TAB PO SCH (05:28)
[2021-10-09] MEDS: Acetaminophen 500 MG TAB PO SCH ×3 (05:28→18:03)
[2021-10-09] MEDS: diphenhydrAMINE 25 MG CAP PO PRN (05:28)
[2021-10-09 06:28] LABS: #Eosinphils 0.3 thou/uL (0.0-0.7); #Lymphocytes 1.3 thou/uL (1.20-3.40); #Monocytes 0.7 thou/uL (0.11-0.59); %Basophils 0.5 % (0.0-1.0); %Eosinophils 3.5 % (0.0-10.0); %Lymphocytes 17.9 % (21.0-51.0); %Monocytes 10.1 % (0.0-10.0); Hemoglobin 10.8 g/dL (14.0-18.0); Mean Corpuscular Hemoglobin 37.7 pg (27.0-31.0); Mean Platelet Volume 7.3 fL (7.4-10.4); Platelet Count 175 thou/uL (130-400); RBC Distribution Width 12.5 % (11.5-14.5); Red Blood Cell (RBC) Count 2.87 mill/uL (4.70-6.10); White Blood Cell (WBC) Count 7.4 thou/uL (4.8-10.8)
[2021-10-09 06:50] LABS: Anion Gap 19 mmol/L (10-20); BUN (Urea Nitrogen) 71 mg/dL (8.4-25.7); Calc. Creatinine Clearance 9 mL/min (70-130); Calcium 8.8 mg/dL (7.8-10.44); Carbon Dioxide 23 mmol/L (23-31); Chloride 94 mmol/L (98-107); Glucose 81 mg/dL (83-110); Magnesium 2.1 mg/dL (1.6-2.6); Phosphorus 6.9 mg/dL (2.3-4.7); Potassium 4.2 mmol/L (3.5-5.1); Sodium 132 mmol/L (136-145)
[2021-10-09] MEDS: Sevelamer Carbonate 800 MG TAB PO SCH ×3 (08:45→18:04)
[2021-10-09] MEDS: Senokot S 8.6-50 MG TAB PO SCH ×2 (08:47→21:31)
[2021-10-09] MEDS: Famotidine 20 MG TAB PO SCH (08:48)
[2021-10-09] MEDS: levETIRAcetam 500 MG TAB PO SCH ×2 (08:49→21:31)
[2021-10-09] MEDS: Heparin 5,000 UNITS/ML VIAL SC SCH ×2 (08:50→21:31)
[2021-10-09] MEDS: Polyethylene Glycol 3350 17 GM Packet PO SCH (08:54)
[2021-10-09] MEDS ORDERED: EPOETIN ALFA-EPBX (ESRD) 4,000 UNIT/ML VIAL SC SCH (09:00)
[2021-10-09] MEDS: Lantus 1000 UNITS/10 ML VIAL SC SCH ×2 (09:03→21:47)
[2021-10-09] MEDS ORDERED: EPOETIN ALFA-EPBX (ESRD) 10,000 UNIT/ML VIAL SC SCH (10:00)
[2021-10-09] MEDS: traMADol HCl 50 MG TAB PO SCH (12:19)
[2021-10-09] MEDS: CEFAZOLIN 1 GM in Sodium Chloride 0.9% 100 ML IVPB SCH (22:46)
[2021-10-10] MEDS: Acetaminophen 500 MG TAB PO SCH ×3 (00:57→12:09)
[2021-10-10] MEDS: traMADol HCl 50 MG TAB PO SCH ×2 (00:57→12:10)
[2021-10-10] MEDS: Levothyroxine Sodium 75 MCG TAB PO SCH (05:32)
[2021-10-10] MEDS: Insulin Regular 300 UNITS/3 ML VIAL SC PRN (05:40)
[2021-10-10 06:43] LABS: #Eosinphils 0.3 thou/uL (0.0-0.7); #Monocytes 0.5 thou/uL (0.11-0.59); #Neutrophils 3.5 thou/uL (1.40-6.50); %Basophils 0.4 % (0.0-1.0); %Eosinophils 5.2 % (0.0-10.0); %Monocytes 9.8 % (0.0-10.0); %Neutrophils 65.5 % (42.0-75.0); Hemoglobin 10.2 g/dL (14.0-18.0); Mean Corpuscular HGB CONC 33.3 g/dL (32.0-36.0); Mean Corpuscular Hemoglobin 38.5 pg (27.0-31.0); Mean Platelet Volume 8.1 fL (7.4-10.4); Platelet Count 173 thou/uL (130-400); RBC Distribution Width 12.4 % (11.5-14.5); Red Blood Cell (RBC) Count 2.65 mill/uL (4.70-6.10); White Blood Cell (WBC) Count 5.4 thou/uL (4.8-10.8)
[2021-10-10 06:59] LABS: Anion Gap 18 mmol/L (10-20); BUN (Urea Nitrogen) 76 mg/dL (8.4-25.7); Calc. Creatinine Clearance 9 mL/min (70-130); Calcium 8.6 mg/dL (7.8-10.44); Carbon Dioxide 23 mmol/L (23-31); Chloride 91 mmol/L (98-107); Glucose 195 mg/dL (83-110); Potassium 4.2 mmol/L (3.5-5.1); Sodium 128 mmol/L (136-145)
[2021-10-10 08:11] VITALS: TEMP 97.7
[2021-10-10] MEDS: Sevelamer Carbonate 800 MG TAB PO SCH ×2 (09:20→12:11)
[2021-10-10] MEDS: Heparin 5,000 UNITS/ML VIAL SC SCH (09:21)
[2021-10-10] MEDS: Famotidine 20 MG TAB PO SCH (09:21)
[2021-10-10] MEDS: Lantus 1000 UNITS/10 ML VIAL SC SCH (09:24)
[2021-10-10] MEDS: levETIRAcetam 500 MG TAB PO SCH (09:26)
[2021-10-10] MEDS: Senokot S 8.6-50 MG TAB PO SCH (09:27)
[2021-10-10 11:38] VITALS: BP 132/79
[2021-10-12] MEDS ORDERED: EPOETIN ALFA-EPBX (ESRD) 4,000 UNIT/ML VIAL SC SCH (09:00)
== END 2021-10-10 15:01 | DRG 521 ==
LOC: ERS 20:29 → SURG A 21:32
PROVIDERS: ADMIT Specialist; ATTEND Surgery
PROC: 0SRR0JA Replacement of Right Hip Joint, Femoral Surface with Synthetic Substitute, Uncemented, Open Approach (ICD-10-PCS; principal; 2021-10-07)
PROC: 3E1M39Z Irrigation of Peritoneal Cavity using Dialysate, Percutaneous Approach (ICD-10-PCS; 2021-10-07)
DX: S72.031A Displaced midcervical fracture of right femur, initial encounter for closed fracture (principal); N18.6 End stage renal disease; N25.81 Secondary hyperparathyroidism of renal origin; I48.20 Chronic atrial fibrillation, unspecified; Z20.822 Contact with and (suspected) exposure to COVID-19; E11.22 Type 2 diabetes mellitus with diabetic chronic kidney disease; E78.00 Pure hypercholesterolemia, unspecified; E03.9 Hypothyroidism, unspecified; G40.909 Epilepsy, unspecified, not intractable, without status epilepticus; D63.1 Anemia in chronic kidney disease; I10 Essential (primary) hypertension; E11.40 Type 2 diabetes mellitus with diabetic neuropathy, unspecified; E83.39 Other disorders of phosphorus metabolism; W18.30XA Fall on same level, unspecified, initial encounter; Y92.009 Unspecified place in unspecified non-institutional (private) residence as the place of occurrence of the external cause; Z85.528 Personal history of other malignant neoplasm of kidney; Z99.2 Dependence on renal dialysis; Z90.49 Acquired absence of other specified parts of digestive tract; Z90.89 Acquired absence of other organs; Z98.890 Other specified postprocedural states; Z90.5 Acquired absence of kidney; Z87.891 Personal history of nicotine dependence; Z91.041 Radiographic dye allergy status; Z79.899 Other long term (current) drug therapy; Z79.4 Long term (current) use of insulin; Z79.890 Hormone replacement therapy; Z85.118 Personal history of other malignant neoplasm of bronchus and lung
CPT/HCPCS: 36415; 36416; 71045; 72170; 80048; 80053; 83690; 83735; 84100; 85025; 85610; 85730; 86706; 86850; 86900; 86901; 87340; 90945; 93005; 96374; 96375; C1713; C1776; G0257; G0390; J0690; J1100; J1644; J1815; J2250; J2270; J2405; J2704; J3010; J3490; J7050; Q5105; U0002; U0003; U0005

== ENCOUNTER 2021-10-12 21:01 | Emergency (ER) | payer MEDICARE, OTHER ==
[2021-10-12 22:54] LABS: #Basophils 0.1 thou/uL (0.0-0.2); #Eosinphils 0.3 thou/uL (0.0-0.7); #Lymphocytes 0.7 thou/uL (1.20-3.40); #Monocytes 0.5 thou/uL (0.11-0.59); %Basophils 0.9 % (0.0-1.0); %Eosinophils 4.5 % (0.0-10.0); %Lymphocytes 10.1 % (21.0-51.0); %Monocytes 7.7 % (0.0-10.0); %Neutrophils 76.8 % (42.0-75.0); Hemoglobin 10.3 g/dL (14.0-18.0); Mean Corpuscular Hemoglobin 37.6 pg (27.0-31.0); Mean Platelet Volume 7.4 fL (7.4-10.4); Platelet Count 256 thou/uL (130-400); RBC Distribution Width 12.4 % (11.5-14.5); Red Blood Cell (RBC) Count 2.75 mill/uL (4.70-6.10); White Blood Cell (WBC) Count 6.5 thou/uL (4.8-10.8)
== END 2021-10-12 23:48 | disposition home or self-care (01) ==
LOC: ERS 21:01
DX: G89.18 Other acute postprocedural pain (principal); M25.551 Pain in right hip; E11.9 Type 2 diabetes mellitus without complications; I10 Essential (primary) hypertension; E78.00 Pure hypercholesterolemia, unspecified; I48.91 Unspecified atrial fibrillation; E03.9 Hypothyroidism, unspecified; Z79.4 Long term (current) use of insulin; Z79.899 Other long term (current) drug therapy
CPT/HCPCS: 36415; 82274

== ENCOUNTER 2021-12-18 16:39 | Emergency (ER) | payer MEDICARE, OTHER ==
[2021-12-18 18:01] LABS: #Eosinphils 0.2 thou/uL (0.0-0.7); #Lymphocytes 1.8 thou/uL (1.20-3.40); #Monocytes 0.8 thou/uL (0.11-0.59); #Neutrophils 8.2 thou/uL (1.40-6.50); %Basophils 0.3 % (0.0-1.0); %Eosinophils 1.8 % (0.0-10.0); %Lymphocytes 16.1 % (21.0-51.0); %Monocytes 7.4 % (0.0-10.0); %Neutrophils 74.4 % (42.0-75.0); Hemoglobin 12.8 g/dL (14.0-18.0); Mean Corpuscular HGB CONC 33.2 g/dL (32.0-36.0); Mean Corpuscular Hemoglobin 36.5 pg (27.0-31.0); Mean Platelet Volume 7.8 fL (7.4-10.4); Platelet Count 195 thou/uL (130-400); RBC Distribution Width 14.2 % (11.5-14.5); Red Blood Cell (RBC) Count 3.49 mill/uL (4.70-6.10)
[2021-12-18 18:18] LABS: ALT (SGPT) 25 U/L (8-55); AST (SGOT) 29 U/L (5-34); Albumin 3.3 g/dL (3.4-4.8); Alkaline Phosphatase 143 U/L (40-110); Anion Gap 18 mmol/L (10-20); BUN (Urea Nitrogen) 28 mg/dL (8.4-25.7); Bilirubin, Total 0.7 mg/dL (0.2-1.2); Calc. Creatinine Clearance 0 mL/min (70-130); Calcium 9.7 mg/dL (7.8-10.44); Carbon Dioxide 23 mmol/L (23-31); Chloride 95 mmol/L (98-107); Glucose 161 mg/dL (83-110); Protein, Total 6.3 g/dL (5.8-8.1); Sodium 133 mmol/L (136-145)
[2021-12-18 18:26] LABS: Potassium 2.8 mmol/L (3.5-5.1)
[2021-12-18] MEDS ORDERED: Potassium Chloride 20 MEQ TAB ONE (18:34)
[2021-12-18 18:39] LABS: CKMB 4.8 ng/mL (0-6.6)
== END 2021-12-18 19:08 | disposition home or self-care (01) ==
LOC: ERS 16:39
DX: S40.012A Contusion of left shoulder, initial encounter (principal); I63.9 Cerebral infarction, unspecified; I48.91 Unspecified atrial fibrillation; I10 Essential (primary) hypertension; E11.9 Type 2 diabetes mellitus without complications; E78.00 Pure hypercholesterolemia, unspecified; E03.9 Hypothyroidism, unspecified; W19.XXXA Unspecified fall, initial encounter
CPT/HCPCS: 36415; 70450; 71045; 80053; 82553; 83880; 84484; 85025; 93005